=== PATIENT | female | born 1945 | race Caucasian/White ===

== ENCOUNTER 2016-10-13 14:54 | Inpatient (IN) | payer OTHER ==
[~2016-10-13] VITALS: Ht 154.9 cm; Wt 104.3 kg
[~2016-10-13 14:54] MED LIST: ALEVE220 M1 PO; ASPIRIN EC81 M1 PO; ATIVAN0.5 M1 PO; AUGMENTIN 875 M1 TAB PO; BREO ELLIPTA 11 EACH INH; CLONIDINE1 EAC1 TOP; DILTIAZEM 24HR360 MG PO; FUROSEMIDE40 M1 PO; GABAPENTIN800 MG PO; LOSARTAN POTASS50 MG PO; PERCOCET 325 MG1 TA2 PO; PREDNISONE10 MG PO; SERTRALINE HCL50 MG PO; SIMVASTATIN10 MG PO; SPIRIVA18 MCG INH; VENTOLIN H0.09 MG/Ac PO; ZOFRAN ODT4 MG PO
--- NOTE | 2016-10-13 15:19 | NUR ---
70 YO FEMALE TO ER C/O SOB WITH PRODUCTIVE COUGH. PT STATES SHE HAS BEEN ON PREDNISONE BUT HER COUGH AND WHEEZING NOTED TO BE GETTING WORSE. STATE SHE HAS TO SLEEP ON MULTIPLE PILLOWS AT NIGHTTIME. RA SATS 94% AT THIS TIME.
--- NOTE | 2016-10-13 15:19 | NUR ---
MED STUDENT AT BEDSIDE FOR EVAL
--- NOTE | 2016-10-13 15:20 | ED DYSPNEA/ASTHMA COMPLAINT ---
History of Present Illness General Chief Complaint: General Adult Stated Complaint: SENT IN PCP FOR SOB AND ABNORMAL EKG Source: patient Exam Limitations: no limitations Vital Signs & Intake/Output Vital Signs & Intake/Output Vital Signs Date Time Temp Pulse Resp B/P Pulse O2 O2 Flow FiO2 Ox Delivery Rate 10/18 0844 98.2 67 18 13/96 97 Room Air 10/18 0820 93 Room Air Room Air 10/18 0006 98.0 77 18 112/76 93 Room Air 10/18 0000 93 CPAP 10/17 2137 77 110/76 10/17 2110 94 Room Air 10/17 1628 98.8 71 20 137/71 93 Room Air ED Intake and Output 10/18 0000 10/17 1200 Intake Total 480 120 Output Total Balance 480 120 Intake, Oral 480 120 Allergies Coded Allergies: adhesive (IRRITATING TO SKIN 10/13/16) cephalexin (ITCHY 10/13/16) clarithromycin (From BIAXIN) (SEVERE GI UPSET, DIARRHEA 10/13/16) hydrochlorothiazide (ITCHY 10/13/16) metronidazole (HIVES AND SEVERE ITCHING 10/13/16) nitrofurantoin (HIVES 10/13/16) sulfamethoxazole (From BACTRIM) (HIVES 10/13/16) trimethoprim (From BACTRIM) (HIVES 10/13/16) Reconcile Medications Albuterol Sulfate (Ventolin Hfa) 90 MCG HFA.AER.AD 2 PUF INH Q6H PRN RESPIRATORY (Reported) Aspirin (Aspirin EC) 81 MG TABLET.DR 1 TAB PO DAILY HEART HEALTH (Reported) Clonidine 0.2 MG/24 HOUR PATCH.TDWK 1 PATCH TOP QW HEART (Reported) Diltiazem HCl (Diltiazem 24HR ER) 360 MG CAP.ER.24H 1 CAP PO DAILY atrial fibrilation (Reported) FLUTICASONE/VILANTEROL (Breo Ellipta 100-25 Mcg INH) 100 MCG-25 MCG/DOSE BLST.W.DEV 1 PUFF INH DAILY BRTH (Reported) Furosemide 40 MG TABLET 1 TAB PO DAILY WATER PILL (Reported) Gabapentin (Neurontin) 400 MG CAPSULE 2 CAP PO BID NEUROPATHY (Reported) Lorazepam (Ativan) 0.5 MG TABLET 1 TAB PO AT BED TIME PRN ANXIETY (Reported) Losartan Potassium (Cozaar) 50 MG TABLET 1 TAB PO DAILY HEART/BP (Reported) Lotrisone (Lotrisone Cream) 1 %-0.05 % CREAM..G. 1 CORNELL TOP BID AFFECTED AREA(S ) ON SKIN (Reported) apply to affected area(s) Montelukast Sodium (Singulair) 10 MG TABLET 1 TAB PO DAILY COPD (Reported) Naproxen Sodium (Aleve) 220 MG CAPSULE 1 CAP PO BID PAIN (Reported) SERTRALINE HCL (Sertraline Hydrochloride) 50 MG TABLET 1 TAB PO DAILY MENTAL HEALTH (Reported) Simvastatin (Zocor) 10 MG TABLET 1 TAB PO QPM CHOLESTEROL (Reported) Tiotropium [place] (Spiriva) 18 MCG CAP.W.DEV 1 CAP INH DAILY BREATHING PROBLEMS (Reported) Triage Nurses Notes Reviewed? yes Onset: Gradual Duration: day(s): (3) Timing: recent history Severity: mild Activities at Onset: none Associated Symptoms: cough, shortness of breath HPI: 70 year old female who presents from PCP's office and sent here for abnormal EKG. Patient was in Afib in the office. One episode previously in 2009. Patient denies any episodes since then, states that when she goes for her regular checkups that her EKG is normal. Denies any chest pain, palpiatations or irregular beat. She does complain of cough, clear phlegm and shortenss of breath. She has used more pillows at night for the past few days. Past History Travel History Traveled to [place] past 21 day No Medical History Any Pertinent Medical History? see below for history Neurological: NONE EENT: allergies, cataracts, hearing loss Cardiovascular: AFIB, hypertension, hyperlipidemia Respiratory: COPD, obstructive sleep apnea Gastrointestinal: hiatal hernia, SBO Hepatic: NONE Renal: KIDNEY STONES Musculoskeletal: sciatica, LEFT KNEE SCRAPING LAMINECTOMY Psychiatric: depression Endocrine: obesity Blood Disorders: NONE Cancer(s): NONE MANAGER BAKERY/Reproductive: NONE History of MRSA: No History of VRE: No History of CDIFF: Yes Tetanus Vaccine: 06/25/14 Surgical History Surgical History: non-contributory Psychosocial History Who do you live with Patient/Self Services at Home None What is your primary language Thai Tobacco Use: Quit >30 days ago Family History Family History, If Any: Relation not specified for: *No pertinent family history Hx Contributory? No Review of Systems Review of Systems Constitutional: Reports: no symptoms. EENTM: Reports: no symptoms. Respiratory: Reports: cough, short of breath, sputum production (yellow). Cardiovascular: Denies: chest pain, palpitations. GI: Reports: no symptoms. Genitourinary: Reports: no symptoms. Musculoskeletal: Reports: no symptoms. Skin: Reports: no symptoms. Neurological/Psychological: Denies: anxiety, ataxia, headache. Hematologic/Endocrine: Denies: bruising, bleeding, polyuria, polydipsia. Immunologic/Allergic: Denies: splenectomy. All Other Systems: Reviewed and Negative Physical Exam Physical Exam General Appearance: well developed/nourished, alert, awake, mild distress, obese Head: atraumatic, normal appearance Eyes: Bilateral: normal appearance, PERRL, EOMI. Ears, Nose, Throat: normal pharynx, normal ENT inspection, hearing grossly normal Neck: normal inspection, supple, full range of motion Respiratory: accessory muscle use, wheezing, respiratory distress Cardiovascular: tachycardia, irregularly irregular Peripheral Pulses: 2+ radial (R), 2+ radial (L) Gastrointestinal: soft, non-tender Neurologic/Psych: no motor/sensory deficits, awake, alert, oriented x 3, normal gait, normal mood/affect Skin: intact, normal color, warm/dry Core Measures ACS in differential dx? No Severe Sepsis Present: No Septic Shock Present: No Progress Differential Diagnosis: asthma, CHF, COPD, pulmonary embolism, pneumonia, PAF Plan of Care: Orders Procedure Date/time Status CBC WITHOUT DIFFERENTIAL 10/18 06 Complete BASIC ELECTROLYTES PLUS BUN&CR 10/18 06 Complete AEROSOL CHG 10/17 UNK Complete Current Medications Sig/Jerel Start time Last Medication Dose Stop Time Status Admin Clonidine 2 PAT Q168 10/19 1000 AC (Catapres) Digoxin 0.25 MG 1700 10/18 1700 CAN (Lanoxin) Acetaminophen 650 MG Q6P PRN 10/13 1929 AC (Tylenol) Albuterol Sulfate 2 PUF Q6H PRN 10/13 1929 AC (Ventolin) Oxycodone HCl 10 MG Q6P PRN 10/13 1929 AC (Roxicodone) Laboratory Tests 10/18/16 0610: Anion Gap 10, Estimated GFR > 60, BUN/Creatinine Ratio 25.6 H, CBC w Diff NO MAN DIFF REQ, RBC 4.43, MCV 82.8, MCH 27.1, RDW 16.4 H, MPV 8.1, Gran % 78.3 H , Lymphocytes % 16.0 L, Monocytes % 5.2, Eosinophils % 0.2, Basophils % 0.3, Absolute Granulocytes 6.9 H, Absolute Lymphocytes 1.4, Absolute Monocytes 0.5, Absolute Eosinophils 0, Absolute Basophils 0, PUBS MCHC 32.8 L ekg, tele monitor, cxr. duoneb, iv solumedrol ordered. heparin/cardizem drip ordered. d/w dr box who will admit patient to telemetry. (ADILSON SAINZ,DEVIKA) Diagnostic Imaging: Viewed by Me: Radiology Read. Discussed w/RAD: Radiology Read. Initial ED EKG: AFIB, PVC Prior EKG: unchanged Rhythm Strip: atrial flutter Comments: PATIENT: SHAR BELLO PRESENT AGE: 70 PATIENT ACCOUNT NO: [id number] : 46 LOCATION: [facility] ORDERING PHYSICIAN: DEVIKA DE ANDA MD SERVICE DATE: 10/13/16 EXAM TYPE: RAD - XRY-PORTABLE CHEST XRAY EXAMINATION: XR PORTABLE CHEST CLINICAL INFORMATION: Dyspnea evaluate for congestive heart failure. Rapid A. fib. COMPARISON: None. TECHNIQUE: Chest CT February 2016. Chest x-ray September 2015. FINDINGS: Mild calcification of the dorsal aorta unchanged. The cardiac silhouette mediastinum and pulmonary vascularity are otherwise normal. Lungs clear. IMPRESSION: No acute disease No radiographic signs for CHF DICTATED BY: EDWIN THORNTON MD DATE/TIME DICTATED:10/13/161543 [employer] HAND:ORALIA DATE/TIME TRANSCRIBED:10/13/161543 CONFIDENTIAL, DO NOT COPY WITHOUT APPROPRIATE AUTHORIZATION. <Electronically signed in Other Vendor System> SIGNED BY: EDWIN THORNTON MD 10/13 1551 Departure Departure Time of Disposition: 1702 Disposition: STILL A PATIENT Condition: Stable Clinical Impression Primary Impression: Rapid atrial fibrillation Referrals: NELL DSOUZA MD (PCP/Family) Departure Forms: Customer Survey General Discharge Information Admission Note Spoke With: LINA SAINZ PhD,BRIAN Hernández Documentation of Exam: Documentation of any treatments & extenuating circumstances including Concerns Regarding Discharge (functional status, medication knowledge or non-compliance, living conditions, etc.) that warrant an admission rather than observation: [ TELE MONITOR, CARDIZEM DRIP, HEPARIN DRIP, SERIAL EKG/TROPONIN, TRC/NEBS, IV SOLUMEDROL, ECHOCARDIOGRAM] Critical Care Note Critical Care Note Critical Care Time: 30-74 min ED Attending Observation Initial Observation Note: I have seen and personally examined ACEJENILinda Mckeon on 10/18/16 at 1358. I agree with the current emergency department documentation. The disposition (admission or discharge) is uncertain at this time, she needs a period of observation for the following reason(s): The ED Nurse caring for this patient has been personally informed as to what the patient is being observed for.
--- NOTE | 2016-10-13 15:41 | NUR ---
LABS DRAWN AND SENT BLUE SST AYON
--- NOTE | 2016-10-13 15:51 | RADIOLOGY REPORT ---
EXAMINATION: XR PORTABLE CHEST CLINICAL INFORMATION: Dyspnea evaluate for congestive heart failure. Rapid A. fib. COMPARISON: None. TECHNIQUE: Chest CT February 2016. Chest x-ray September 2015. FINDINGS: Mild calcification of the dorsal aorta unchanged. The cardiac silhouette mediastinum and pulmonary vascularity are otherwise normal. Lungs clear. IMPRESSION: No acute disease No radiographic signs for CHF
[2016-10-13 15:56] LABS: PT 12.4 SEC (9.4-12.5); PTT 29 SEC (25-37)
--- NOTE | 2016-10-13 16:05 | NUR ---
RESP PAGED FOR JULIÁN
--- NOTE | 2016-10-13 16:13 | NUR ---
RESP AT BEDSIDE FOR TREATMENT
[2016-10-13 16:28] LABS: ABSOLUTE BASOPHIL COUNT 0.1 /CUMM (0.0-0.2); ABSOLUTE EOSINOPHIL COUNT 0 /CUMM (0.0-0.7); ABSOLUTE GRANULOCYTE CT 8.8 /CUMM (1.4-6.5); ABSOLUTE LYMPH COUNT 0.9 /CUMM (1.2-3.4); ABSOLUTE MONOCYTE COUNT 0.4 /CUMM (0.10-0.60); BASOPHIL % 0.6 % (0.0-2.0); EOSINOPHIL % 0.1 % (0-5); GRANULOCYTE % 85.8 % (42.2-75.2); HEMATOCRIT 38.2 % (37-47); MEAN CORPUSCULAR HGB 26.5 PG (27.0-31.0); MEAN CORPUSCULAR HGB CONC 32.2 G/DL (33.0-37.0); MEAN CORPUSCULAR VOLUME 82.3 FL (81.0-99.0); MEAN PLATELET VOLUME 7.7 FL (7.4-10.4); PLATELET COUNT 320 /CUMM (130-400); RBC DISTRIBUTION WIDTH 15.8 % (11.5-14.5); RED BLOOD CELL CT 4.64 /CUMM (4.20-5.40); WHITE BLOOD CELL COUNT 10.2 /CUMM (4.8-10.8)
--- NOTE | 2016-10-13 16:59 | NUR ---
CARDIZEM INFUSING PER ORDER AT THIS TIME AT 10ML/HR AFTER VERIFICATION WITH LUCIANO RODRIGUEZ.
[2016-10-13] MEDS ORDERED: VENTOLIN HFA18 GM INH (17:15)
[2016-10-13] MEDS ORDERED: NEURONTIN400 M1 PO (17:17)
[2016-10-13] MEDS ORDERED: COZAAR50 M1 PO (17:19)
[2016-10-13] MEDS ORDERED: LOTRISONE CREAM15 G1 TOP (17:21)
--- NOTE | 2016-10-13 17:22 | NUR ---
HEPARIN INFUSING PER ORDER AT 26ML/HR AT THIS TIME. DR MILLS AT BEDSIDE. 500CC BOLUS INFUSING PER ORDER, CARDIZEM CONTINUES TO INFUSE.
--- NOTE | 2016-10-13 17:31 | History & Physical ---
DARIEN SAINZ,[facility] 10/13/16 1731: General Information and HPI MD Statement: I have seen and personally examined JESENIA BELLO and documented this H&P. The patient is a 70 year old F who presented with a patient stated chief complaint of [EKG with atrial fibrillation with rapid ventricular response]. 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 patient presented from PCP office after an EKG that showed atrial fibrillation with rapid ventricular response. Patient denied any chest pain, palpitation, dizziness, lightheadedness, numbness, diaphoresis. She reported that 2 weeks ago she started to have COPD exacerbation for which was started on prednisone 40 mg daily and now tapered down to 10 mg daily ( patient is following with Dr. Harris), history of productive cough of yellow sputum, nasal congestion, denied fever, chills. The patient received the flu vaccine this season and the pneumonia vaccine as well. The patient is a former smoker quit 10 years ago. No history of alcohol consumption. Allergies/Medications Allergies: Coded Allergies: adhesive (IRRITATING TO SKIN 10/13/16) cephalexin (ITCHY 10/13/16) clarithromycin (From BIAXIN) (SEVERE GI UPSET, DIARRHEA 10/13/16) hydrochlorothiazide (ITCHY 10/13/16) metronidazole (HIVES AND SEVERE ITCHING 10/13/16) nitrofurantoin (HIVES 10/13/16) sulfamethoxazole (From BACTRIM) (HIVES 10/13/16) trimethoprim (From BACTRIM) (HIVES 10/13/16) Home Med list Albuterol Sulfate (Ventolin Hfa) 90 MCG HFA.AER.AD 2 PUF INH Q6H PRN RESPIRATORY (Reported) Aspirin (Aspirin EC) 81 MG TABLET.DR 1 TAB PO DAILY HEART HEALTH (Reported) Clonidine 0.2 MG/24 HOUR PATCH.TDWK 1 PATCH TOP QW HEART (Reported) DILTIAZEM HCL (Diltiazem 24HR ER) 240 MG CAP.ER.24H 1 TAB PO DAILY HEART ( Reported) FLUTICASONE/VILANTEROL (Breo Ellipta 100-25 Mcg INH) 100 MCG-25 MCG/DOSE BLST.W.DEV 1 PUFF INH DAILY BRTH (Reported) Furosemide 40 MG TABLET 1 TAB PO DAILY WATER PILL (Reported) Gabapentin (Neurontin) 400 MG CAPSULE 2 CAP PO BID NEUROPATHY (Reported) Lorazepam (Ativan) 0.5 MG TABLET 1 TAB PO AT BED TIME PRN ANXIETY (Reported) Losartan Potassium (Cozaar) 50 MG TABLET 1 TAB PO DAILY HEART/BP (Reported) Lotrisone (Lotrisone Cream) 1 %-0.05 % CREAM..G. 1 CORNELL TOP BID AFFECTED AREA(S ) ON SKIN (Reported) apply to affected area(s) Montelukast Sodium (Singulair) 10 MG TABLET 1 TAB PO DAILY COPD (Reported) Naproxen Sodium (Aleve) 220 MG CAPSULE 1 CAP PO BID PAIN (Reported) SERTRALINE HCL (Sertraline Hydrochloride) 50 MG TABLET 1 TAB PO DAILY MENTAL HEALTH (Reported) Simvastatin (Zocor) 10 MG TABLET 1 TAB PO QPM CHOLESTEROL (Reported) Tiotropium [place] (Spiriva) 18 MCG CAP.W.DEV 1 CAP INH DAILY BREATHING PROBLEMS (Reported) Past History Travel History Traveled to [place] past 21 day No Medical History Neurological: NONE EENT: allergies, cataracts, hearing loss Cardiovascular: AFIB, hypertension, hyperlipidemia Respiratory: COPD, obstructive sleep apnea Gastrointestinal: hiatal hernia, SBO Hepatic: NONE Renal: KIDNEY STONES Musculoskeletal: sciatica, LEFT KNEE SCRAPING LAMINECTOMY Psychiatric: depression Endocrine: obesity Blood Disorders: NONE Cancer(s): NONE 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 Exam & Diagnostic Data Last 24 Hrs of Vital Signs/I&O Vital Signs Date Time Temp Pulse Resp B/P Pulse O2 O2 Flow FiO2 Ox Delivery Rate 10/14 0158 97.7 63 96/56 10/14 0043 58 88/56 10/14 0000 CPAP 10/13 2322 98.1 70 18 94/60 95 Room Air 10/13 2242 76 94/60 10/13 2205 Room Air 10/13 1999 Room Air 10/13 1947 98.4 88 20 134/80 94 Room Air 10/13 1744 86 18 146/77 95 Room Air 10/13 1642 104 112/65 10/13 1617 94 10/13 1518 96.2 113 20 121/90 94 Room Air Intake & Output 10/14 0800 10/14 0000 10/13 1600 Intake Total 737 350 Output Total 300 Balance 437 350 Intake, IV 637 150 Intake, Oral 100 200 Number 0 Bowel Movements Output, Urine 300 Patient 104.326 kg Weight Physical Exam General Appearance Alert, Oriented X3, Cooperative, No Acute Distress Skin No Rashes, No Breakdown, No Significant Lesion HEENT Atraumatic, PERRLA, EOMI, Mucous Membr. moist/pink Neck Supple, No JVD Cardiovascular Regular Rate, Normal S1, Normal S2, No Murmurs Lungs bilateral diffuse expiratory wheeze Abdomen Normal Bowel Sounds, Soft, No Tenderness Neurological Normal Speech, Strength at 5/5 X4 Ext, Normal Tone, Sensation Intact, Cranial Nerves 3-12 NL, Reflexes 2+ Extremities No Clubbing, No Cyanosis, No Edema, Normal Pulses Vascular Normal Pulses, Pulses Symmetrical Assessment/Plan Assessment: Jesenia is a 70 year old lady with past medical history of COPD not on home oxygen , obstructive sleep apnea on CPAP, hypertension, hyperlipidemia, supraventricular tachycardia (?paroxysmal atrial fibrillation not on anticoagulation), 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 patient presented from PCP office after an EKG that showed atrial fibrillation with rapid ventricular response. On admission Vital signs 96.2, pulse 113 irregular rhythm, respiratory rate 20 on room air saturation 94%, blood pressure 121/90 Labs WBC 10.2, platelet 320, H&H 12.3/38.2, sodium 138, potassium 4.3, chloride 103, bicarbonate 24, BUN 24, creatinine 0.8 Chest x-ray showed no acute distress and no radiographic signs of CHF Problem list #Atrial fibrillation with rapid ventricular response #COPD exacerbation #Hypertension and hyperlipidemia #Atrial fibrillation with rapid ventricular response -Patient has past medical history of supraventricular tachycardia was on Cardizem -Patient has recent history of flulike illness that could predispose for atrial fibrillation -Start heparin drip for anticoagulation -Start Cardizem drip for rate control -Initial troponin is less than 0.01, check troponin after 6 hour -EKG after 6 hour -Consider echo #COPD exacerbation -Consider Soul Medrol 40 mg twice a day -Zithromax for 5 days -TRC and nebulizer 3 times a day and as needed -Consider flu rapid test -Continue montelukast 10 mg daily -P BNP of 1490 could be of cardiac or infection source -Please place a pulm consult in the morning Dr. Harris #Hypertension and hyperlipidemia -Continue atorvastatin 10 mg daily -Continue losartan 50 mg daily -Aspirin 80 mg daily -Continue furosemide 40 mg daily Diet heart healthy diet DVT prophylaxis heparin drip Code full Consultation cardiology and pulmonology As Ranked By This Provider Problem List: 1. Rapid atrial fibrillation 2. COPD exacerbation Core Measures/Miscellaneous Acute Coronary Syndrome ACS Diagnosis: No Cerebrovascular Accident CVA/TIA Diagnosis: No Congestive Heart Failure CHF Diagnosis: No Venous Thromboembolism VTE Risk Factors: Age > 40 VTE Prophylaxis Ordered Inpt: Pharm- Heparin No [facility] VTE prophylaxis d/t: No contraindications No VTE Pharm Prophylaxis d/t: No contraindications VTE Diagnosis: No VTE Type: NONE VTE Confirmed by (Test): NONE Severe Sepsis Severe Sepsis Present: No Septic Shock Septic Shock Present: No Miscellaneous Documentation Attending Case Discussed With: LINA SAINZ PhD,BRIAN Hernández Primary Care Physician: NELL DSOUZA MD Patient sees these Specialists pulmomology and cardiology Level of Patient Care: Telemetry EDUARDO CALVIN 10/13/161926: Resident Review Statement Resident Statement: examined this patient, discussed with international nurse, agreed with international nurse Other Findings: Patient is 70 years old woman with past medical history significant for obstructive sleep apnea on CPAP at home, non-oxygen dependent COPD and resistant hypertension on multiple antihypertensives, history of abdominal aortic aneurysm repair and noted a large penetrating ulcer which is stable and history of paroxysmal atrial fibrillation not on any anticoagulation came to emergency room and found to have atrial fibrillation with rapid response at her PCP's office. Patient admits that she was having upper respiratory symptoms and COPD exacerbation in past few days for which she was on tapering course of prednisone and also had cough which is productive of yellowish phlegm and she was wheezing a lot. She denied any chest pain or palpitations. She denied any dizziness, nausea, vomiting, any urinary or bowel complaints. Her vital signs at admission were temperature 96.2, pulse 113, respiratory rate 20, blood pressure 121/90 and she was saturating 94% on room air. Labs showed WBC count 10.2, hemoglobin 12.3, hematocrit 38.2, platelet count 320 , sodium 138, potassium 4.3, BUN 24 and creatinine 0.8, initial lactic acid was high to 2.3 and we will follow-up. We'll set of troponin was negative and her proBNP is 1490. X-ray was negative for any acute pathology EKG was significant for atrial fibrillation with no significant ST wave changes On physical examination Patient is alert and oriented 3 Head atraumatic Neck supple Chest loud wheezes throughout respiratory ramírez bilaterally Abdomen soft and protuberant with normal bowel sounds Extremities no edema or cyanosis Assessment and plan Patient is 70 year old female with multiple comorbidities including hypertension , as COPD, aortic aneurysm, aortic arch penetrating stable ulcer, multiple surgeries in the past had history of recent upper respiratory tract infection/ bronchitis with COPD exacerbation almost completed tapering course of oral prednisone and found to have atrial fibrillation which is most likely paroxysmal atrial fibrillation but she was never been on anticoagulation as her rate was controlleD but 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 We will admit patient on telemetry floor Patient is already seen by Dr. Ha in ER. Patient was started on heparin drip and Cardizem drip in ER and we will continue Cardizem drip along with oral Cardizem her home dose and will start patient on oral ELIQUIS 5 mg twice a day and we will stop heparin drip after getting first dose. Will obtain echocardiogram Her first set of troponin which is negative we will do another set of is negative we will not trended but if it's elevated we will send it. For her COPD exacerbation/bronchitis we will start patient on azithromycin, IV Solu-Medrol, TRC and nebulization and we will request a pulmonology evaluation in a.m.
--- NOTE | 2016-10-13 17:53 | NUR ---
PT HAS BED ASSIGNMENT 181
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
--- NOTE | 2016-10-13 18:34 | NUR ---
REPORT GIVEN TO [employer] M[employer]ER OPERATOR. [employer] CALLED FOR TRANSPORT.
[2016-10-13] MEDS ORDERED: SINGULAIR10 M1 PO (19:41)
[2016-10-13 19:47] VITALS: BP 134/80
[2016-10-13 23:22] VITALS: BP 152/70; BP 94/60
[2016-10-14 00:43] VITALS: BP 88/56
[2016-10-14 01:58] VITALS: BP 96/56
[2016-10-14 02:25] LABS: ABSOLUTE BASOPHIL COUNT 0 /CUMM (0.0-0.2); ABSOLUTE EOSINOPHIL COUNT 0 /CUMM (0.0-0.7); ABSOLUTE GRANULOCYTE CT 6.1 /CUMM (1.4-6.5); ABSOLUTE LYMPH COUNT 0.5 /CUMM (1.2-3.4); ABSOLUTE MONOCYTE COUNT 0 /CUMM (0.10-0.60); BASOPHIL % 0 % (0.0-2.0); EOSINOPHIL % 0 % (0-5); HEMATOCRIT 35.5 % (37-47); MEAN CORPUSCULAR HGB 26.8 PG (27.0-31.0); MEAN CORPUSCULAR HGB CONC 32.9 G/DL (33.0-37.0); MEAN CORPUSCULAR VOLUME 81.7 FL (81.0-99.0); MEAN PLATELET VOLUME 7.9 FL (7.4-10.4); PLATELET COUNT 271 /CUMM (130-400); RBC DISTRIBUTION WIDTH 15.4 % (11.5-14.5); RED BLOOD CELL CT 4.34 /CUMM (4.20-5.40); WHITE BLOOD CELL COUNT 6.6 /CUMM (4.8-10.8)
[2016-10-14 02:39] LABS: GRANULOCYTE % 91.6 % (42.2-75.2)
--- NOTE | 2016-10-14 08:02 | PN- Housestaff ---
Subjective Follow-up For: atrial fibrillation with rapid ventricular response COPD exacerbation Tele-Events Since Last Visit: Afib, 61-110, no overnight events Subjective: I saw and examined the patient this AM, alert and oriented, denied chest pain, palpitation, SOB, cough, fever. had BM yesterday, no pain in abdomen and reported no swelling in the legs. Review of Systems Constitutional: Reports: no symptoms. EENTM: Denies: hearing changes (uses hearing aid). Cardiovascular: Reports: no symptoms. Respiratory: Denies: cough, short of breath, sputum production, wheezing. Gastrointestinal: Reports: no symptoms. Genitourinary: Reports: no symptoms. Musculoskeletal: Reports: no symptoms. Skin: Reports: no symptoms. Objective Last 24 Hrs of Vital Signs/I&O Vital Signs Date Time Temp Pulse Resp B/P Pulse O2 O2 Flow FiO2 Ox Delivery Rate 10/14 1602 97.8 86 18 116/68 93 Room Air 10/14 0833 91 Room Air 10/14 0815 97.5 61 18 110/66 94 CPAP 10/14 0158 97.7 63 96/56 10/14 0043 58 88/56 10/14 0000 CPAP 10/13 2322 98.1 70 18 94/60 95 Room Air 10/13 2242 76 94/60 10/13 2205 Room Air Intake & Output 10/14 1600 10/14 0800 10/14 0000 Intake Total 240 737 350 Output Total 600 300 Balance -360 437 350 Intake, IV 637 150 Intake, Oral 240 100 200 Number 0 Bowel Movements Output, Urine 600 300 Patient 104.326 kg Weight Physical Exam General Appearance: Alert, Oriented X3, Cooperative, No Acute Distress Skin: No Rashes, No Breakdown, No Significant Lesion HEENT: Atraumatic, PERRLA, EOMI, Mucous Membr. moist/pink Neck: Supple, No JVD Cardiovascular: Regular Rate, Normal S1, Normal S2, No Murmurs Lungs: wheezing bilaterally Abdomen: Normal Bowel Sounds, Soft, No Tenderness, No Hepatospenomegaly Neurological: Normal Speech, Strength at 5/5 X4 Ext, Normal Tone, Cranial Nerves 3-12 NL Extremities: No Clubbing, No Cyanosis, No Edema, Normal Pulses, No Tenderness/ Swelling Vascular: Normal Pulses, Pulses Symmetrical Current Medications: Current Medications Sig/Jerel Start time Last Medication Dose Route Stop Time Status Admin Acetaminophen 650 MG Q6P PRN 01/19 1930 AC PO Acetaminophen/ 1 TAB Q6P PRN 10/13 193 AC Hydrocodone Bitart PO Albuterol Sulfate 3 ML TID 10/14 1000 AC 10/14 INH 1349 Albuterol Sulfate 2 PUF Q6H PRN 10/13 1930 AC INH Apixaban 5 MG BID 10/13 191 AC 10/14 PO 1029 Aspirin 81 MG DAILY 10/14 1000 AC 10/14 PO 1029 Atorvastatin Calcium 10 MG 1700 10/14 1700 AC PO Azithromycin 500 MG DAILY 10/13 1921 AC 10/14 Dextrose/Water 250 ML IV 1031 Budesonide/ 2 PUF BID 10/13 220 AC Formoterol Fumarate INH Diltiazem HCl 360 MG DAILY 10/15 1000 AC PO Diltiazem HCl 240 MG DAILY 10/14 1000 DC 10/14 PO 1031 Diltiazem HCl 125 MG Q12H 10/13 1615 AC 10/14 Sodium Chloride 100 ML IV 0628 Furosemide 40 MG DAILY 10/13 192 AC 10/14 PO 1029 Gabapentin 800 MG BID 10/13 220 AC 10/14 PO 1029 Heparin Sodium 25,000 UNIT Q24H 10/13 1700 DC 10/13 (Porcine) IV 1719 Sodium Chloride 500 ML Lorazepam 0.5 MG AT BEDTIME 10/13 2199 AC 10/13 PO 10/20 2159 2239 Losartan Potassium 50 MG DAILY 10/14 1000 DC PO Losartan Potassium 50 MG AT BEDTIME 10/13 2245 AC PO Methylprednisolone 40 MG Q12 10/14 2200 AC IV Methylprednisolone 40 MG Q8 10/13 2200 DC 10/14 IV 0629 Montelukast Sodium 10 MG DAILY 10/14 1000 DC PO Montelukast Sodium 10 MG AT BEDTIME 10/13 2245 AC 10/13 PO 2239 Oxycodone HCl 10 MG Q6P PRN 10/13 193 AC PO Sertraline HCl 50 MG DAILY 10/14 1000 AC 10/14 PO 1029 Sodium Chloride 500 ML BOLUS ONE 10/13 2345 DC 10/14 IV 10/14 0044 0042 Tiotropium [place] 1 PUF DAILY 10/13 192 AC 10/14 INH 1030 Last 24 Hrs of Lab/Kevin Results Last 24 Hrs of Labs/Mics: Laboratory Tests 10/14/16 0600: Lactic Acid Cancelled, CBC w Diff Cancelled, WBC Cancelled, RBC Cancelled, Hgb Cancelled, Hct Cancelled, MCV Cancelled, MCH Cancelled, RDW Cancelled, Plt Count Cancelled, MPV Cancelled, PUBS MCHC Cancelled 10/14/16 0200: Anion Gap 9, Estimated GFR > 60, BUN/Creatinine Ratio 27.5 H, Lactic Acid 1.9, CBC w Diff NO MAN DIFF REQ, RBC 4.34, MCV 81.7, MCH 26.8 L, RDW 15.4 H, MPV 7.9, Gran % 91.6 H, Lymphocytes % 7.7 L, Monocytes % 0.7 L, Eosinophils % 0, Basophils % 0 L, Absolute Granulocytes 6.1, Absolute Lymphocytes 0.5 L, Absolute Monocytes 0 L, Absolute Eosinophils 0, Absolute Basophils 0, PUBS MCHC 32.9 L 10/13/16 2220: Troponin I < 0.01 10/13/16 2220: Lactic Acid 3.9 H Assessment/Plan Assessment: Jesenia is a 70 year old lady with past medical history of COPD not on home oxygen , obstructive sleep apnea on CPAP, hypertension, hyperlipidemia, supraventricular tachycardia (?paroxysmal atrial fibrillation not on anticoagulation), stable penetrating ulcer along the lateral margin of the aortic arc, abdominal aortic aneurysm status post [id number], chronic back pain status post laminectomy 2009, history of hernia repair with small bowel resection because of incarceration, history of mesothelioma. patient presented from PCP office after an EKG that showed atrial fibrillation with rapid ventricular response. On admission Vital signs 96.2, pulse 113 irregular rhythm, respiratory rate 20 on room air saturation 94%, blood pressure 121/90 Labs WBC 10.2, platelet 320, H&H 12.3/38.2, sodium 138, potassium 4.3, chloride 103, bicarbonate 24, BUN 24, creatinine 0.8 Chest x-ray showed no acute distress and no radiographic signs of CHF Problem list #Atrial fibrillation with rapid ventricular response #COPD exacerbation #Hypertension and hyperlipidemia #Atrial fibrillation with rapid ventricular response -Patient has past medical history of supraventricular tachycardia was on Cardizem -Patient has recent history of flue like illness that could predispose for atrial fibrillation -Started heparin drip for anticoagulation -Started Cardizem drip for rate control -Serial troponins less than 0.01 with no EKG changes -Ordered Echo -PO cardizem increased to 360 mg daily per cardiology #SOB, likely due to COPD exacerbation -Decreased IV Soul Medrol 40 mg to twice a day -Zithromax for 5 days -TRC and nebulizer 3 times a day and as needed -Consider flu rapid test -Continue montelukast 10 mg daily -P BNP of 1490 could be of cardiac or infection source -Place pulm consult and followed recs -Doppler US of LE to RO DVT #Hypertension and hyperlipidemia -Continue atorvastatin 10 mg daily -Continue losartan 50 mg daily -Aspirin 80 mg daily -Continue furosemide 40 mg daily -per cardiology if BP <100mmHg systolic decrease clonidine patch to 0.1mg/hr or hold entirely Diet heart healthy diet DVT prophylaxis heparin drip Code full Consultation cardiology and pulmonology Problem List: 1. Rapid atrial fibrillation 2. COPD exacerbation Pain Ratin Pain Location: no pain Pain Goal: Pain 4 or less Pain Plan: tylenol for mild pain Tomorrow's Labs & Rationales: CBC and BEP
[2016-10-14 08:15] VITALS: BP 110/66
--- NOTE | 2016-10-14 10:13 | PN- Cardiology ---
Subjective Subjective: * Wheezing and shortness of breath have lessened. No chest discomfort or palpitations. * atrial fibrillation with controlled heart rate on IV cardizem Objective Vital Signs and I&Os Vital Signs Date Time Temp Pulse Resp B/P Pulse O2 O2 Flow FiO2 Ox Delivery Rate 10/14 0833 91 Room Air 10/14 0815 97.5 61 18 110/66 94 CPAP 10/14 0158 97.7 63 96/56 10/14 0043 58 88/56 10/14 0000 CPAP 10/13 2322 98.1 70 18 94/60 95 Room Air 10/13 2242 76 94/60 10/13 2205 Room Air 10/13 2000 Room Air 10/13 1947 98.4 88 20 134/80 94 Room Air 10/13 1744 86 18 146/77 95 Room Air 10/13 1642 104 112/65 10/13 1617 94 10/13 1518 96.2 113 20 121/90 94 Room Air Intake & Output 10/14 1600 10/14 0800 10/14 0000 10/13 1600 10/13 0800 10/13 0000 Intake Total 737 350 Output Total 300 Balance 437 350 Intake, IV 637 150 Intake, Oral 100 200 Number 0 Bowel Movements Output, Urine 300 Patient 230 lb Weight Physical Exam: General: WD/ obese female in NAD; alert and oriented x 3 Heart: irregularly irregular Lungs: diffuse expiratory wheezing Extremities: no edema Assessment/Plan Assessment/Plan * Increase oral cardizem to 360mg daily for better rate control. If her BP drops below 100mmHg systolic then decrease her clonidine patch to 0.1mg/hr or hold entirely as appropriate for her pressure. * Continue Eliquis for stroke prophylaxis. * Continue antibiotic therapy and steroid taper along with Albuteral Nebs. Dr. Harris to consult. * Will review echo. Continue telemetry? Yes
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
[2016-10-14 16:02] VITALS: BP 116/68
--- NOTE | 2016-10-14 19:34 | ULTRASOUND REPORT ---
EXAMINATION: US TRIPLEX LOWER EXTREMITY, BILATERAL CLINICAL INFORMATION: Mild leg edema bilaterally COMPARISON: None. TECHNIQUE: Color-flow triplex imaging with spectral analysis and compression Doppler were performed on the bilateral lower extremities. FINDINGS: Respiratory variation, normal compression and augmented flow are noted throughout the bilateral lower extremities. The visualized common femoral vein, superficial femoral vein, profunda femoral vein, popliteal vein and mid calf peroneal and posterior tibial venous segments show no evidence of deep venous thrombosis. There is no Valles's cyst. IMPRESSION: Normal triplex scan without evidence of deep venous thrombosis involving the bilateral lower extremities.
[2016-10-14 23:48] VITALS: BP 130/60
--- NOTE | 2016-10-15 08:01 | PN- Housestaff ---
Subjective Follow-up For: atrial fibrillation with rapid ventricular response COPD exacerbation Tele-Events Since Last Visit: Rambo christine, rate 76-87, PVCs Subjective: She seen and examined this morning. She was lying comfortably in bed in no acute distress. Denies any chest pain, palpitation, shortness of breath. Remains afebrile, the vitals remained within normal limits Review of Systems Constitutional: Reports: see HPI. Objective Last 24 Hrs of Vital Signs/I&O Vital Signs Date Time Temp Pulse Resp B/P Pulse O2 O2 Flow FiO2 Ox Delivery Rate 10/15 0932 93 Room Air Room Air 10/15 0857 98.4 73 17 153/76 95 Room Air 10/15 0000 96 Room Air 10/14 2348 97.4 95 18 130/60 94 Room Air 10/14 2318 118 130/60 10/14 2145 93 Room Air 10/14 1602 97.8 86 18 116/68 93 Room Air 10/14 1600 95 Room Air Intake & Output 10/15 1600 10/15 0800 10/15 0000 Intake Total 0 450 Output Total 300 1450 Balance -300 -1000 Intake, Oral 0 450 Number 0 Bowel Movements Output, Urine 300 1450 Physical Exam General Appearance: Alert, Oriented X3, Cooperative, No Acute Distress Cardiovascular: Regular Rate, Normal S1, Normal S2, No Murmurs Lungs: mild bilateral wheezing Abdomen: Normal Bowel Sounds, Soft, No Tenderness Extremities: No Clubbing, No Cyanosis, No Edema Current Medications: Current Medications Sig/Jerel Start time Last Medication Dose Route Stop Time Status Admin Acetaminophen 650 MG Q6P PRN 10/13 1929 AC PO Acetaminophen/ 1 TAB Q6P PRN 10/13 1929 AC Hydrocodone Bitart PO Albuterol Sulfate 3 ML TID 10/14 1000 AC 10/15 INH 0931 Albuterol Sulfate 2 PUF Q6H PRN 10/13 193 AC INH Apixaban 5 MG BID 10/13 191 AC 10/15 PO 0948 Aspirin 81 MG DAILY 10/14 1000 AC 10/15 PO 0948 Atorvastatin Calcium 10 MG 1700 10/14 1700 AC 10/14 PO 2314 Azithromycin 500 MG DAILY 10/13 1921 AC 10/15 Dextrose/Water 250 ML IV 0949 Budesonide/ 2 PUF BID 10/13 2199 AC Formoterol Fumarate INH Diltiazem HCl 360 MG DAILY 10/15 1000 AC 10/15 PO 0948 Diltiazem HCl 240 MG DAILY 10/14 1000 DC 10/14 PO 1031 Diltiazem HCl 125 MG Q12H 10/13 1615 DC 10/14 Sodium Chloride 100 ML IV 0628 Furosemide 40 MG DAILY 10/13 1924 AC 10/15 PO 0948 Gabapentin 800 MG BID 10/13 2199 AC 10/15 PO 0948 Lorazepam 0.5 MG AT BEDTIME 10/13 2199 AC 10/14 PO 10/20 215 2318 Losartan Potassium 50 MG AT BEDTIME 10/13 2244 AC 10/14 PO 2318 Methylprednisolone 40 MG Q12 10/14 2199 DC 10/15 IV 0949 Methylprednisolone 40 MG Q8 10/13 2199 DC 10/14 IV 0629 Montelukast Sodium 10 MG AT BEDTIME 10/13 2244 AC 10/14 PO 2314 Oxycodone HCl 10 MG Q6P PRN 10/13 193 AC PO Prednisone 40 MG DAILY 10/16 1000 UNVr PO Sertraline HCl 50 MG DAILY 10/14 1000 AC 10/15 PO 0949 Tiotropium [place] 1 PUF DAILY 10/13 1925 AC 10/15 INH 0947 Last 24 Hrs of Lab/Kevin Results Last 24 Hrs of Labs/Mics: Laboratory Tests 10/15/16 0620: Anion Gap 13, Estimated GFR > 60, BUN/Creatinine Ratio 35.0 H, Magnesium 1.9, CBC w Diff NO MAN DIFF REQ, RBC 4.46, MCV 83.1, MCH 27.0, RDW 15.9 H, MPV 8.2, Gran % 94.0 H, Lymphocytes % 4.6 L, Monocytes % 1.4 L, Eosinophils % 0, Basophils % 0 L, Absolute Granulocytes 13.6 H, Absolute Lymphocytes 0.7 L, Absolute Monocytes 0.2, Absolute Eosinophils 0, Absolute Basophils 0, PUBS MCHC 32.5 L Assessment/Plan Assessment: Jesenia is a 70 year old lady with past medical history of COPD not on home oxygen , obstructive sleep apnea on CPAP, hypertension, hyperlipidemia, supraventricular tachycardia (?paroxysmal atrial fibrillation not on anticoagulation), 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 patient presented from PCP office after an EKG that showed atrial fibrillation with rapid ventricular response. On admission Vital signs 96.2, pulse 113 irregular rhythm, respiratory rate 20 on room air saturation 94%, blood pressure 121/90 Labs WBC 10.2, platelet 320, H&H 12.3/38.2, sodium 138, potassium 4.3, chloride 103, bicarbonate 24, BUN 24, creatinine 0.8 Chest x-ray showed no acute distress and no radiographic signs of CHF Problem list #Atrial fibrillation with rapid ventricular response #COPD exacerbation #Hypertension and hyperlipidemia #Atrial fibrillation with rapid ventricular response -Patient has past medical history of supraventricular tachycardia was on Cardizem -Patient has recent history of flue like illness that could predispose for atrial fibrillation -Started heparin drip for anticoagulation -Started Cardizem drip for rate control -Serial troponins less than 0.01 with no EKG changes -Echo ejection fraction 65-70 %. -PO cardizem increased to 360 mg daily per cardiology, will follow-up for the recommendation. #SOB, likely due to COPD exacerbation -IV Soul Medrol 40 mg to twice a day switch to prednisone 40 mg daily a month follow-up pulmonology recommendation for tapering. -Zithromax for 5 days -TRC and nebulizer 3 times a day and as needed -Consider flu rapid test -Continue montelukast 10 mg daily -P BNP of 1490 could be of cardiac or infection source -Place pulm consult and followed recs -Doppler US of LE to RO DVT #Hypertension and hyperlipidemia -Continue atorvastatin 10 mg daily -Continue losartan 50 mg daily -Aspirin 80 mg daily -Continue furosemide 40 mg daily -per cardiology if BP <100mmHg systolic decrease clonidine patch to 0.1mg/hr or hold entirely Diet heart healthy diet DVT prophylaxis heparin drip Code full Consultation cardiology and pulmonology Problem List: 1. Rapid atrial fibrillation 2. Atrial fibrillation 3. COPD exacerbation Pain Ratin Pain Location: none Pain Goal: Pain 4 or less Pain Plan: Tylenol for mild pain Tomorrow's Labs & Rationales: cBC for WBC monitoring BEP for lites monitoring.
[2016-10-15 08:32] LABS: ABSOLUTE BASOPHIL COUNT 0 /CUMM (0.0-0.2); ABSOLUTE EOSINOPHIL COUNT 0 /CUMM (0.0-0.7); ABSOLUTE GRANULOCYTE CT 13.6 /CUMM (1.4-6.5); ABSOLUTE LYMPH COUNT 0.7 /CUMM (1.2-3.4); ABSOLUTE MONOCYTE COUNT 0.2 /CUMM (0.10-0.60); BASOPHIL % 0 % (0.0-2.0); EOSINOPHIL % 0 % (0-5); HEMATOCRIT 37.1 % (37-47); MEAN CORPUSCULAR HGB CONC 32.5 G/DL (33.0-37.0); MEAN CORPUSCULAR VOLUME 83.1 FL (81.0-99.0); MEAN PLATELET VOLUME 8.2 FL (7.4-10.4); PLATELET COUNT 315 /CUMM (130-400); RBC DISTRIBUTION WIDTH 15.9 % (11.5-14.5); RED BLOOD CELL CT 4.46 /CUMM (4.20-5.40)
[2016-10-15 08:57] VITALS: BP 153/76
--- NOTE | 2016-10-15 09:10 | PN- Pulmonary ---
Subjective HPI/Critical Care Issues: She is comfortable on room air but has mild dyspnea on exertion heart rate remains elevated Objective Current Medications: Current Medications Sig/Jerel Start time Last Medication Dose Route Stop Time Status Admin Acetaminophen 650 MG Q6P PRN 10/13 1929 AC PO Acetaminophen/ 1 TAB Q6P PRN 10/13 1929 AC Hydrocodone Bitart PO Albuterol Sulfate 3 ML TID 10/14 1000 AC 10/14 INH 204 Albuterol Sulfate 2 PUF Q6H PRN 10/13 1929 AC INH Apixaban 5 MG BID 10/13 1914 AC 10/14 PO 2314 Aspirin 81 MG DAILY 10/14 1000 AC 10/14 PO 1029 Atorvastatin Calcium 10 MG 1700 10/14 1700 AC 10/14 PO 2314 Azithromycin 500 MG DAILY 10/13 1921 AC 10/14 Dextrose/Water 250 ML IV 1031 Budesonide/ 2 PUF BID 10/13 2199 AC Formoterol Fumarate INH Diltiazem HCl 360 MG DAILY 10/15 1000 AC PO Diltiazem HCl 240 MG DAILY 10/14 1000 DC 10/14 PO 1031 Diltiazem HCl 125 MG Q12H 10/13 161 AC 10/14 Sodium Chloride 100 ML IV 0628 Furosemide 40 MG DAILY 10/13 1923 AC 10/14 PO 1029 Gabapentin 800 MG BID 10/13 2199 AC 10/14 PO 2314 Lorazepam 0.5 MG AT BEDTIME 10/13 2199 AC 10/14 PO 10/20 215 2318 Losartan Potassium 50 MG AT BEDTIME 10/13 2244 AC 10/14 PO 2318 Methylprednisolone 40 MG Q12 10/14 2199 AC 10/14 IV 2313 Methylprednisolone 40 MG Q8 10/13 220 DC 10/14 IV 0629 Montelukast Sodium 10 MG AT BEDTIME 10/13 2244 AC 10/14 PO 2314 Oxycodone HCl 10 MG Q6P PRN 10/13 1929 AC PO Sertraline HCl 50 MG DAILY 10/14 1000 AC 10/14 PO 1029 Tiotropium [place] 1 PUF DAILY 10/13 1925 AC 10/14 INH 1030 Vital Signs & I&O Last 24 Hrs of Vitals and I&O: Vital Signs Date Time Temp Pulse Resp B/P Pulse O2 O2 Flow FiO2 Ox Delivery Rate 10/15 0857 98.4 73 17 153/76 95 Room Air 10/15 0000 96 Room Air 10/14 2348 97.4 95 18 130/60 94 Room Air 10/14 2318 118 130/60 10/14 2145 93 Room Air 10/14 1602 97.8 86 18 116/68 93 Room Air 10/14 1600 95 Room Air Intake & Output 10/15 1600 10/15 0800 10/15 0000 Intake Total 0 450 Output Total 300 1450 Balance -300 -1000 Intake, Oral 0 450 Number 0 Bowel Movements Output, Urine 300 1450 Room air sat 95% exam for chest shows clear lung ramírez are no wheezes cardiac exam shows regular S1 and S2 without murmurs Impression/Plan Impression/Plan Impression/Plan: 70-year-old admitted with atrial fibrillation rapid ventricular response and mild exacerbation of COPD Recommendations: DC Solu-Medrol begin prednisone. Further rate control per cardiology
--- NOTE | 2016-10-15 09:48 | ECHOCARDIOGRAM REPORT ---
SHAR BELLO Age: 70 : 1945 Gender: F Exam Date: 10/14/2016 09:29 Exam Location: [facility] Ht (in): 61 Wt (lb): 230 BSA: 2.18 BP: 96 / 56 Ordering Physician: EDUARDO CALVIN MD Referring Physician: EDUARDO CALVIN MD Technologist: Lopez Mckeon [facility] Room Number: [id number] Indications: AFIB/FLUTTER Rhythm: Atrial fibrillation Technical Quality: fair FINDINGS Left Ventricle Normal left ventricular size, wall thickness and systolic function with no obvious regional wall motion abnormalities. The ejection fraction is visually estimated at 65-70 %. Right Ventricle The right ventricle is milldy enlarged with normal function. Right Atrium The right atrium is normal in size. Left Atrium The left atrium is normal in size. The interatrial septum is intact. Mitral Valve The mitral valve is normal in structure and function. There is trace mitral regurgitation. Aortic Valve Structurally normal aortic valve without significant sclerosis or stenosis. There is mild aortic regurgitation. Tricuspid Valve The tricuspid valve is normal in structure and function. There is trace tricuspid regurgitation. Pulmonary artery systolic pressure is normal. Pulmonic Valve Structurally normal pulmonic valve. There is no pulmonic regurgitation. Pericardium Normal pericardium without effusion. No pleural effusion. Great Vessels Normal aortic root dimension. The aortic arch and great vessels are well seen and are normal. CONCLUSIONS 1. Normal EF of 65-70% 2. Mild right ventricular enlargement. 3. Trace mitral regurgitation. 4.. Trace tricuspid regurgitation. 5. Mild aortic insufficiency. Jean Ha M.D. (Electronically Signed) Final Date: 15 October 2016 09:47 MEASUREMENTS (Male / Female) Normal Values 2D ECHO LV Diastolic Diameter PLAX 4.9 cm 4.2 - 5.9 / 3.9 - 5.3 cm LV Systolic Diameter PLAX 4.0 cm 2.1 - 4.0 cm LV Fractional Shortening PLAX 18.4 % 25 - 46 % LV Ejection Fraction 2D Teich 38.0 % IVS Diastolic Thickness 1.3 cm LVPW Diastolic Thickness 1.0 cm LV Relative Wall Thickness 0.5 LVOT Diameter 2.0 cm Aortic Root Diameter 3.3 cm LA Systolic Diameter LX 3.4 cm 3.0 - 4.0 / 2.7 - 3.8 cm LV Ejection Fraction MOD BP 68.2 % >= 55 % LV Diastolic Length 4C 7.7 cm 6.9 - 10.3 cm LV Diastolic Area 4C 32.2 cm LV Diastolic Volume MOD 4C 112.0 cm LV Ejection Fraction MOD 4C 72.3 % LV Stroke Volume MOD 4C 81.0 cm LV Systolic Length 4C 5.8 cm LV Systolic Area 4C 14.7 cm LV Systolic Volume MOD 4C 31.0 cm LV Ejection Fraction MOD 2C 60.3 % LV Diastolic Volume 4C AL 115.1 cm 85 - 139 / 69 - 109 cm LV Systolic Volume 4C AL 31.9 cm LV Ejection Fraction 4C AL 72.2 % LV Stroke Volume 4C AL 83.1 cm LV Ejection Fraction 2C AL 62.2 % LA Volume 90.0 cm 18 - 58 / 22 - 52 cm Ascending Aorta Diameter 3.3 cm DOPPLER AV Peak Velocity 193.0 cm/s AV Peak Gradient 14.9 mmHg AV Mean Velocity 127.0 cm/s AV Mean Gradient 8.0 mmHg AV Velocity Time Integral 33.5 cm LVOT Peak Velocity 120.0 cm/s LVOT Peak Gradient 5.8 mmHg LVOT Mean Velocity 79.8 cm/s LVOT Mean Gradient 3.0 mmHg LVOT Velocity Time Integral 22.7 cm LVOT Stroke Volume 71.3 cm AV Area Cont Eq vti 2.1 cm AV Area Cont Eq pk 2.0 cm Mitral E Point Velocity 110.3 cm/s MV Deceleration Time 119.7 ms TR Peak Velocity 270.0 cm/s TR Peak Gradient 29.2 mmHg PV Peak Velocity 102.6 cm/s PV Peak Gradient 4.2 mmHg PV Mean Velocity 69.6 cm/s PV Mean Gradient 2.0 mmHg PV Velocity Time Integral 19.6 cm
[2016-10-15 11:13] LABS: WHITE BLOOD CELL COUNT 14.5 /CUMM (4.8-10.8)
--- NOTE | 2016-10-15 13:49 | PN- Cardiology ---
Subjective Subjective: The patient is sitting in her bed having lunch at the time she was seen. She remains in atrial fibrillation. Her rate is fairly well-controlled but she still has episodes of elevated heart rate with any activity. With activity, she remains dyspneic as well. Objective Vital Signs and I&Os Vital Signs Date Time Temp Pulse Resp B/P Pulse O2 O2 Flow FiO2 Ox Delivery Rate 10/15 0932 93 Room Air Room Air 10/15 0857 98.4 73 17 153/76 95 Room Air 10/15 0800 Room Air 10/15 0000 96 Room Air 10/14 2348 97.4 95 18 130/60 94 Room Air 10/14 2318 118 130/60 10/14 2145 93 Room Air 10/14 1602 97.8 86 18 116/68 93 Room Air 10/14 1600 95 Room Air Intake & Output 10/15 1600 10/15 0800 10/15 0000 10/14 1600 10/14 0800 10/14 0000 Intake Total 0 450 240 737 350 Output Total 300 1450 600 300 Balance -300 -1000 -360 437 350 Intake, IV 637 150 Intake, Oral 0 450 240 100 200 Number 0 0 Bowel Movements Output, Urine 300 1450 600 300 Patient 230 lb Weight Current Medications: Current Medications Sig/Jerel Start time Last Medication Dose Route Stop Time Status Admin Acetaminophen 650 MG Q6P PRN 10/13 1929 AC PO Acetaminophen/ 1 TAB Q6P PRN 10/13 1929 AC Hydrocodone Bitart PO Albuterol Sulfate 3 ML TID 10/14 1000 AC 10/15 INH 0931 Albuterol Sulfate 2 PUF Q6H PRN 10/13 1929 AC INH Apixaban 5 MG BID 10/13 1914 AC 10/15 PO 0948 Aspirin 81 MG DAILY 10/14 1000 AC 10/15 PO 0948 Atorvastatin Calcium 10 MG 1700 10/14 1700 AC 10/14 PO 2314 Azithromycin 500 MG DAILY 10/13 1921 AC 10/15 Dextrose/Water 250 ML IV 0949 Budesonide/ 2 PUF BID 10/13 2199 DC Formoterol Fumarate INH Diltiazem HCl 360 MG DAILY 10/15 1000 AC 10/15 PO 0948 Diltiazem HCl 125 MG Q12H 10/13 1615 DC 10/14 Sodium Chloride 100 ML IV 0628 Furosemide 40 MG DAILY 10/13 1923 AC 10/15 PO 0948 Gabapentin 800 MG BID 10/13 2199 AC 10/15 PO 0948 Lorazepam 0.5 MG AT BEDTIME 10/13 2199 AC 10/14 PO 10/20 Losartan Potassium 50 MG AT BEDTIME 10/13 2244 AC 10/14 PO 2318 Methylprednisolone 40 MG Q12 10/14 2199 DC 10/15 IV 0949 Methylprednisolone 40 MG Q8 10/13 2199 DC 10/14 IV 0629 Montelukast Sodium 10 MG AT BEDTIME 10/13 2244 AC 10/14 PO 2314 Oxycodone HCl 10 MG Q6P PRN 10/13 193 AC PO Prednisone 40 MG DAILY 10/16 1000 AC PO Sertraline HCl 50 MG DAILY 10/14 1000 AC 10/15 PO 0949 Tiotropium [place] 1 PUF DAILY 10/13 1925 AC 10/15 INH 0947 Results Last 48 Hrs of Labs/Mics: Laboratory Tests 10/15/16 0620: Anion Gap 13, Estimated GFR > 60, BUN/Creatinine Ratio 35.0 H, Magnesium 1.9, CBC w Diff NO MAN DIFF REQ, RBC 4.46, MCV 83.1, MCH 27.0, RDW 15.9 H, MPV 8.2, Gran % 94.0 H, Lymphocytes % 4.6 L, Monocytes % 1.4 L, Eosinophils % 0, Basophils % 0 L, Absolute Granulocytes 13.6 H, Absolute Lymphocytes 0.7 L, Absolute Monocytes 0.2, Absolute Eosinophils 0, Absolute Basophils 0, PUBS MCHC 32.5 L 10/14/16 0600: Lactic Acid Cancelled, CBC w Diff Cancelled, WBC Cancelled, RBC Cancelled, Hgb Cancelled, Hct Cancelled, MCV Cancelled, MCH Cancelled, RDW Cancelled, Plt Count Cancelled, MPV Cancelled, PUBS MCHC Cancelled 10/14/16 0200: Anion Gap 9, Estimated GFR > 60, BUN/Creatinine Ratio 27.5 H, Lactic Acid 1.9, CBC w Diff NO MAN DIFF REQ, RBC 4.34, MCV 81.7, MCH 26.8 L, RDW 15.4 H, MPV 7.9, Gran % 91.6 H, Lymphocytes % 7.7 L, Monocytes % 0.7 L, Eosinophils % 0, Basophils % 0 L, Absolute Granulocytes 6.1, Absolute Lymphocytes 0.5 L, Absolute Monocytes 0 L, Absolute Eosinophils 0, Absolute Basophils 0, PUBS MCHC 32.9 L 10/13/16 2220: Troponin I < 0.01 10/13/16 2220: Lactic Acid 3.9 H 10/13/16 1621: CBC w Diff NO MAN DIFF REQ, RBC 4.64, MCV 82.3, MCH 26.5 L, RDW 15.8 H, MPV 7.7, Gran % 85.8 H, Lymphocytes % 9.1 L, Monocytes % 4.4, Eosinophils % 0.1, Basophils % 0.6, Absolute Granulocytes 8.8 H, Absolute Lymphocytes 0.9 L, Absolute Monocytes 0.4, Absolute Eosinophils 0, Absolute Basophils 0.1, PUBS MCHC 32.2 L 10/13/16 1535: Anion Gap 12, Estimated GFR > 60, BUN/Creatinine Ratio 30.0 H, Glucose 189 H, Lactic Acid 2.3 H, Calcium 8.9, Total Bilirubin 0.4, AST 20, ALT 26, Alkaline Phosphatase 62, Troponin I < 0.01, Gcb-F-Oxhcvhxeiva Pept 1490 H, Total Protein 6.2 L, Albumin 3.4 L, Globulin 2.8, Albumin/Globulin Ratio 1.2, TSH 0.864, Free T4 1.20, PT 12.4, INR 1.18, APTT 29 Assessment/Plan Assessment/Plan Assessment: 1. Atrial fibrillation with rapid ventricular rate 2. COPD exacerbation 3. Hypertension 4. Hyperlipidemia Recommendations: -The patient's Cardizem dose was increased to 360 mg daily today. We will monitor her heart rate over the next 24 hours and make further changes at that time. -Continue current anticoagulation regimen -If tolerated, please ambulate the patient later today with close monitoring of her heart rate with ambulation, oxygen saturations, etc. -Hopefully with improvement in the patient's underlying pulmonary status, her heart rate control also improved. -If necessary, a second agent may need to be added for rate control. Further plans in 24 hours Continue telemetry? Yes
--- NOTE | 2016-10-15 15:32 | NUR ---
PATIENT AMBULATES IN [place]; SPO2 93% ON RA; HR 110'S AFIB; REPORTS EXSOB; TACHYPNIC RR30; WANTS TO GO BACK TO BED
[2016-10-15 15:59] VITALS: BP 98/51
[2016-10-16 00:16] VITALS: BP 122/70
[2016-10-16 08:34] VITALS: BP 138/73
[2016-10-16 10:24] LABS: ABSOLUTE BASOPHIL COUNT 0 /CUMM (0.0-0.2); ABSOLUTE EOSINOPHIL COUNT 0 /CUMM (0.0-0.7); ABSOLUTE GRANULOCYTE CT 13.9 /CUMM (1.4-6.5); ABSOLUTE LYMPH COUNT 0.9 /CUMM (1.2-3.4); ABSOLUTE MONOCYTE COUNT 0.7 /CUMM (0.10-0.60); BASOPHIL % 0.3 % (0.0-2.0); EOSINOPHIL % 0 % (0-5); GRANULOCYTE % 89.5 % (42.2-75.2); HEMATOCRIT 37.1 % (37-47); MEAN CORPUSCULAR HGB CONC 32.5 G/DL (33.0-37.0); MEAN PLATELET VOLUME 8.1 FL (7.4-10.4); PLATELET COUNT 303 /CUMM (130-400); RED BLOOD CELL CT 4.47 /CUMM (4.20-5.40); WHITE BLOOD CELL COUNT 15.5 /CUMM (4.8-10.8)
--- NOTE | 2016-10-16 10:56 | PN- Housestaff ---
Subjective Follow-up For: Atrial fibrillation COPD exacerbation Subjective: Patient was seen and examined this morning. She complains of persisting wheezing and cough with scanty yellow sputum. She also endorses shortness of breath on exertion. She gives a history of chronic UTI and currently only complains of increased urinary urgency, dark yellow colored urine and stress incontinence. No burning/ blood in urine. She has not had a bowel movement since admission but is passing flattus. Review of Systems Constitutional: Denies: see HPI. Objective Last 24 Hrs of Vital Signs/I&O Vital Signs Date Time Temp Pulse Resp B/P Pulse O2 O2 Flow FiO2 Ox Delivery Rate 10/16 1636 98.3 79 18 103/57 92 Room Air 10/16 0834 97.9 70 17 138/73 93 Room Air 10/16 0826 97 Room Air 10/16 0800 Room Air 10/16 0016 97.9 95 20 122/70 94 10/15 2140 90 118/76 10/15 2018 94 Room Air Room Air Intake & Output 10/16 1600 10/16 0800 10/16 0000 Intake Total 720 550 Output Total 500 Balance 720 50 Intake, Oral 720 550 Output, Urine 500 Physical Exam General Appearance: Alert, Oriented X3, Cooperative, No Acute Distress Skin: No Rashes, No Breakdown, No Significant Lesion Cardiovascular: Regular Rate, Normal S1, Normal S2, No Murmurs Lungs: bilateral expiratory wheeze Abdomen: Normal Bowel Sounds, Soft, No Tenderness Neurological: Normal Gait, Normal Speech, Strength at 5/5 X4 Ext, Normal Tone Extremities: No Clubbing, No Cyanosis, bilateral pedal edema Assessment/Plan Assessment: Jesenia is a 70 year old lady with past medical history of COPD not on home oxygen , obstructive sleep apnea on CPAP, hypertension, hyperlipidemia, supraventricular tachycardia (?paroxysmal atrial fibrillation not on anticoagulation), 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 patient presented from PCP office after an EKG that showed atrial fibrillation with rapid ventricular response. On admission Vital signs 96.2, pulse 113 irregular rhythm, respiratory rate 20 on room air saturation 94%, blood pressure 121/90 Labs WBC 10.2, platelet 320, H&H 12.3/38.2, sodium 138, potassium 4.3, chloride 103, bicarbonate 24, BUN 24, creatinine 0.8 Chest x-ray showed no acute distress and no radiographic signs of CHF Problem list #Atrial fibrillation with rapid ventricular response #COPD exacerbation #Hypertension and hyperlipidemia #Atrial fibrillation with rapid ventricular response -Patient has past medical history of supraventricular tachycardia was on Cardizem -Patient has recent history of flue like illness that could predispose for atrial fibrillation -On admission patient was on IV drip heparin and Cardizem -Serial troponins less than 0.01 with no EKG changes -Echo ejection fraction 65-70 %. -Continue cardizem 360 mg daily per cardiology -Continue Eliquis for anticoagulation #SOB, likely due to COPD exacerbation -Continue prednisone 40 mg daily a month f -Zithromax for 5 days -TRC and nebulizer 3 times a day and as needed -Continue montelukast 10 mg daily -Encouraged ambulation -Doppler US of LE didn't show any signs of deep venous thrombosis #Hypertension and hyperlipidemia -Continue atorvastatin 10 mg daily -Continue losartan 50 mg daily -Aspirin 80 mg daily -Continue furosemide 40 mg daily -per cardiology if BP <100mmHg systolic decrease clonidine patch to 0.1mg/hr or hold entirely Diet heart healthy diet DVT prophylaxis heparin drip Code full Consultation cardiology and pulmonology Problem List: 1. COPD exacerbation 2. Atrial fibrillation Pain Ratin Pain Location: n/a Pain Goal: Pain 4 or less Pain Plan: See medication Tomorrow's Labs & Rationales: cbc, cmb
--- NOTE | 2016-10-16 11:18 | PN- Pulmonary ---
Subjective HPI/Critical Care Issues: Patient shortness breath and wheezing is improved Objective Current Medications: Current Medications Sig/Jerel Start time Last Medication Dose Route Stop Time Status Admin Acetaminophen 650 MG Q6P PRN 10/13 1929 AC PO Acetaminophen/ 1 TAB Q6P PRN 10/13 1929 AC Hydrocodone Bitart PO Albuterol Sulfate 3 ML TID 10/14 1000 AC 10/16 INH 0823 Albuterol Sulfate 2 PUF Q6H PRN 10/13 1929 AC INH Apixaban 5 MG BID 10/13 1914 AC 10/16 PO 0946 Aspirin 81 MG DAILY 10/14 1000 AC 10/16 PO 0946 Atorvastatin Calcium 10 MG 1700 10/14 1700 AC 10/15 PO 1731 Azithromycin 250 MG DAILY 10/16 1200 AC PO 10/17 1001 Azithromycin 500 MG DAILY 10/13 1921 DC 10/16 Dextrose/Water 250 ML IV 0945 Budesonide/ 2 PUF BID 10/13 2199 DC Formoterol Fumarate INH Diltiazem HCl 360 MG DAILY 10/15 1000 AC 10/16 PO 0946 Fluticasone 2 SPRAY DAILY 10/16 1000 AC 10/16 Propionate ANGELA 0945 Furosemide 40 MG DAILY 10/13 1923 AC 10/16 PO 0946 Gabapentin 800 MG BID 10/13 2199 AC 10/16 PO 0946 Lorazepam 0.5 MG AT BEDTIME 10/13 2199 AC 10/15 PO 10/20 215 224 Losartan Potassium 50 MG AT BEDTIME 10/13 2244 AC 10/15 PO 2140 Methylprednisolone 40 MG Q12 10/14 2200 DC 10/15 IV 0949 Montelukast Sodium 10 MG AT BEDTIME 10/13 224 AC 10/15 PO 2138 Oxycodone HCl 10 MG Q6P PRN 10/13 193 AC PO Polyethylene Glycol 17 GM DAILY 10/16 1000 AC 10/16 PO 0945 Prednisone 40 MG DAILY 10/16 1000 AC 10/16 PO 0946 Senna/Docusate Sodium 1 TAB BID PRN 10/15 2229 AC 10/15 PO 2249 Sertraline HCl 50 MG DAILY 10/14 1000 AC 10/16 PO 0946 Tiotropium [place] 1 PUF DAILY 10/13 1925 AC 10/16 INH 0945 Vital Signs & I&O Last 24 Hrs of Vitals and I&O: Vital Signs Date Time Temp Pulse Resp B/P Pulse O2 O2 Flow FiO2 Ox Delivery Rate 10/16 0834 97.9 70 17 138/73 93 Room Air 10/16 0826 97 Room Air 10/16 0800 Room Air 10/16 0016 97.9 95 20 122/70 94 10/15 2140 90 118/76 10/15 2017 94 Room Air Room Air 10/15 1600 Room Air 10/15 1559 97.8 83 98/51 92 Room Air Intake & Output 10/16 1600 10/16 0800 10/16 0000 Intake Total 550 Output Total 500 Balance 50 Intake, Oral 550 Output, Urine 500 Room air oxygen saturation 9397% exam for chest shows decreased wheezing cardiac exam shows regular S1 and S2 without murmurs Impression/Plan Impression/Plan Impression/Plan: 70-year-old admitted with atrial fibrillation rapid ventricular response and mild exacerbation of COPD Recommendations: Continue present dose of steroids. Increase ambulation
--- NOTE | 2016-10-16 16:02 | PN- Cardiology ---
Subjective Subjective: The patient is resting comfortably. Her respiratory status is slightly improved today. Her heart rate remains controlled at rest. With ambulation, her heart rate rises slowly but is better controlled today than yesterday. She denies any other symptoms. Objective Vital Signs and I&Os Vital Signs Date Time Temp Pulse Resp B/P Pulse O2 O2 Flow FiO2 Ox Delivery Rate 10/16 0834 97.9 70 17 138/73 93 Room Air 10/16 0826 97 Room Air 10/16 0800 Room Air 10/16 0016 97.9 95 20 122/70 94 10/15 2140 90 118/76 10/15 2017 94 Room Air Room Air Intake & Output 10/16 1600 10/16 0800 10/16 0000 10/15 1600 10/15 0800 10/15 0000 Intake Total 720 550 970 0 450 Output Total 435 419 3442 Balance 720 50 970 -300 -1000 Intake, IV 250 Intake, Oral 720 550 720 0 450 Number 0 Bowel Movements Output, Urine [phone] Physical Exam: General Appearance: Alert, Oriented X3, Cooperative, No Acute Distress Cardiovascular: Regular Rate, Normal S1, Normal S2, No Murmurs Lungs: mild bilateral wheezing Abdomen: Normal Bowel Sounds, Soft, No Tenderness Extremities: No Clubbing, No Cyanosis, No Edema Current Medications: Current Medications Sig/Jerel Start time Last Medication Dose Route Stop Time Status Admin Acetaminophen 650 MG Q6P PRN 10/13 1929 AC PO Acetaminophen/ 1 TAB Q6P PRN 10/13 1929 AC Hydrocodone Bitart PO Albuterol Sulfate 3 ML TID 10/14 1000 AC 10/16 INH 1323 Albuterol Sulfate 2 PUF Q6H PRN 10/13 1929 AC INH Apixaban 5 MG BID 10/13 191 AC 10/16 PO 0946 Aspirin 81 MG DAILY 10/14 1000 AC 10/16 PO 0946 Atorvastatin Calcium 10 MG 1700 10/14 1700 AC 10/15 PO 1731 Azithromycin 250 MG DAILY 10/16 1200 AC 10/16 PO 10/17 1001 1129 Azithromycin 500 MG DAILY 10/13 1921 DC 10/16 Dextrose/Water 250 ML IV 0945 Diltiazem HCl 360 MG DAILY 10/15 1000 AC 10/16 PO 0946 Fluticasone 2 SPRAY DAILY 10/16 1000 AC 10/16 Propionate ANGELA 0945 Furosemide 40 MG DAILY 10/13 1923 AC 10/16 PO 0946 Gabapentin 800 MG BID 10/13 2199 AC 10/16 PO 0946 Lorazepam 0.5 MG AT BEDTIME 10/13 2199 AC 10/15 PO 10/20 Losartan Potassium 50 MG AT BEDTIME 10/13 2244 AC 10/15 PO 2140 Montelukast Sodium 10 MG AT BEDTIME 10/13 2244 AC 10/15 PO 2138 Oxycodone HCl 10 MG Q6P PRN 10/13 1929 AC PO Polyethylene Glycol 17 GM DAILY 10/16 1000 AC 10/16 PO 0945 Prednisone 40 MG DAILY 10/16 1000 AC 10/16 PO 0946 Senna/Docusate Sodium 1 TAB BID PRN 10/15 2229 AC 10/15 PO 224 Sertraline HCl 50 MG DAILY 10/14 999 AC 10/16 PO 0946 Tiotropium [place] 1 PUF DAILY 10/13 1925 AC 10/16 INH 0945 Results Last 48 Hrs of Labs/Mics: Laboratory Tests 10/16/16 0610: Anion Gap 8, Estimated GFR > 60, BUN/Creatinine Ratio 33.3 H, Magnesium 1.9, CBC w Diff NO MAN DIFF REQ, RBC 4.47, MCV 83.0, MCH 27.0, RDW 16.0 H, MPV 8.1, Gran % 89.5 H, Lymphocytes % 5.9 L, Monocytes % 4.3, Eosinophils % 0, Basophils % 0.3, Absolute Granulocytes 13.9 H, Absolute Lymphocytes 0.9 L, Absolute Monocytes 0.7 H, Absolute Eosinophils 0, Absolute Basophils 0, PUBS MCHC 32.5 L 10/15/16 1600: Urine Color YEL, Urine Clarity CLEAR, Urine pH 6.0, Ur Specific [place] 1.015, Urine Protein NEG, Urine Ketones NEG, Urine Nitrite POS H, Urine Bilirubin NEG, Urine Urobilinogen 0.2, Ur Leukocyte Esterase NEG, Ur Microscopic SEDIMENT EXAMINED, Urine RBC RARE, Ur Epithelial Cells FEW, Urine Crystals 1+ [place] OX H, Urine Hemoglobin NEG, Urine Glucose NEG 10/15/16 0620: Anion Gap 13, Estimated GFR > 60, BUN/Creatinine Ratio 35.0 H, Magnesium 1.9, CBC w Diff NO MAN DIFF REQ, RBC 4.46, MCV 83.1, MCH 27.0, RDW 15.9 H, MPV 8.2, Gran % 94.0 H, Lymphocytes % 4.6 L, Monocytes % 1.4 L, Eosinophils % 0, Basophils % 0 L, Absolute Granulocytes 13.6 H, Absolute Lymphocytes 0.7 L, Absolute Monocytes 0.2, Absolute Eosinophils 0, Absolute Basophils 0, PUBS MCHC 32.5 L Assessment/Plan Assessment/Plan Assessment: 1. Atrial fibrillation with rapid ventricular rate 2. COPD exacerbation 3. Hypertension 4. Hyperlipidemia Recommendations: -The patient's Cardizem dose was increased to 360 mg daily yesterday. Today, her heart rate appears to be better controlled. In addition, her heart rate rises less with ambulation. -Continue current anticoagulation regimen -If tolerated, please ambulate the patient later today with close monitoring of her heart rate with ambulation, oxygen saturations, etc. -Hopefully with improvement in the patient's underlying pulmonary status, her heart rate control will continue to improve -Reassess in 24 hours. -If necessary, a second agent may need to be added for rate control. Further plans in 24 hours Continue telemetry? Yes
[2016-10-16 16:36] VITALS: BP 103/57
[2016-10-16 23:00] VITALS: BP 150/86
[2016-10-17 08:01] VITALS: BP 148/90
[2016-10-17 08:37] LABS: ABSOLUTE BASOPHIL COUNT 0 /CUMM (0.0-0.2); ABSOLUTE EOSINOPHIL COUNT 0 /CUMM (0.0-0.7); ABSOLUTE GRANULOCYTE CT 10.7 /CUMM (1.4-6.5); ABSOLUTE LYMPH COUNT 1.7 /CUMM (1.2-3.4); ABSOLUTE MONOCYTE COUNT 0.7 /CUMM (0.10-0.60); BASOPHIL % 0.1 % (0.0-2.0); EOSINOPHIL % 0 % (0-5); GRANULOCYTE % 81.5 % (42.2-75.2); HEMATOCRIT 36.8 % (37-47); MEAN CORPUSCULAR HGB 26.6 PG (27.0-31.0); MEAN CORPUSCULAR HGB CONC 32.4 G/DL (33.0-37.0); MEAN CORPUSCULAR VOLUME 82.2 FL (81.0-99.0); MEAN PLATELET VOLUME 7.8 FL (7.4-10.4); PLATELET COUNT 285 /CUMM (130-400); RBC DISTRIBUTION WIDTH 15.8 % (11.5-14.5); RED BLOOD CELL CT 4.48 /CUMM (4.20-5.40); WHITE BLOOD CELL COUNT 13.1 /CUMM (4.8-10.8)
--- NOTE | 2016-10-17 08:53 | PN- Pulmonary ---
Subjective HPI/Critical Care Issues: 70-year-old woman with new-onset A. fib and COPD. Appears to have an exacerbation of COPD. Impression/Plan Impression/Plan Impression/Plan: 70-year-old woman with history of obstructive sleep apnea on CPAP and COPD was admitted for new onset atrial fibrillation. Pertinent data Vital signs are stable WBC 6.6 with left shift but no bandemia hemoglobin 11.7 hematocrit 35.5 Lactic acid: normalized BEP: BUN/creatinine ratio 27.5 Troponin: Negative Pro-BMP 1490 List of problems #1 atrial fibrillation with rapid ventricular rate #2 COPD exacerbation #3 hypertension #4 hyperlipidemia Plan Atrial fibrillation with rapid ventricular rate * Agree with anticoagulation with a decrease for stroke prevention * Patient is currently on Cardizem drip; heart rate is controlled * Managed her medical team * Follow echo results * Obtain Doppler ultrasound of lower extremity to rule out DVT COPD exacerbation * Decrease IV Solu-Medrol to 40 mg twice a day * Continue Breo * Continue Spiriva * Albuterol INH 3ML Q4; watch for tachycardia * Azithromycin 250 mg by mouth daily for 5 days Obstructive sleep apnea * Continue nocturnal CPAP Asthma maintenance treatments * Continue montelukast 10 mg by mouth daily Hypertension and hyperlipidemia * Managed her medical team Depression * per medical team *
--- NOTE | 2016-10-17 09:21 | PN- Housestaff ---
Subjective Follow-up For: Atrial fibrillation COPD exacerbation Tele-Events Since Last Visit: Atrial fibrillation Rate 69 to a 41 No events Subjective: Patient was seen and examined this morning. She feels better and says her wheeze , chest congestion and cough have improved. She had an uneventful night. Review of Systems Constitutional: Denies: see HPI. Objective Last 24 Hrs of Vital Signs/I&O Vital Signs Date Time Temp Pulse Resp B/P Pulse O2 O2 Flow FiO2 Ox Delivery Rate 10/17 1628 98.8 71 20 137/71 93 Room Air 10/17 0823 93 Room Air Room Air 10/17 0801 97.9 84 20 148/90 93 CPAP 10/17 0000 95 CPAP 10/16 2300 97.8 88 20 150/86 94 Room Air 10/16 2254 87 150/88 Intake & Output 10/17 1600 10/17 0800 10/17 0000 Intake Total 240 120 480 Output Total Balance 240 120 480 Intake, Oral 240 120 480 Number 1 Bowel Movements Physical Exam General Appearance: Alert, Oriented X3, Cooperative, No Acute Distress Skin: No Rashes, No Breakdown, No Significant Lesion HEENT: Atraumatic, PERRLA, EOMI, Mucous Membr. moist/pink Neck: Supple, No LAD Cardiovascular: No Murmurs, irrigular irrigular S1 and S2 Lungs: decreased air entry over L infrascapular region, occasional expiratory wheeze bilaterally Abdomen: Normal Bowel Sounds, Soft, No Tenderness Neurological: Normal Gait, Normal Speech, Strength at 5/5 X4 Ext, Normal Tone, Sensation Intact, Cranial Nerves 3-12 NL, Reflexes 2+ Extremities: No Cyanosis, No Tenderness/Swelling, Bilateral +1 pedal edema Vascular: Normal Pulses Assessment/Plan Assessment: Jesenia is a 70 year old lady with past medical history of COPD not on home oxygen , obstructive sleep apnea on CPAP, hypertension, hyperlipidemia, supraventricular tachycardia (?paroxysmal atrial fibrillation not on anticoagulation), 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 patient presented from PCP office after an EKG that showed atrial fibrillation with rapid ventricular response. On admission Vital signs 96.2, pulse 113 irregular rhythm, respiratory rate 20 on room air saturation 94%, blood pressure 121/90 Labs WBC 10.2, platelet 320, H&H 12.3/38.2, sodium 138, potassium 4.3, chloride 103, bicarbonate 24, BUN 24, creatinine 0.8 Chest x-ray showed no acute distress and no radiographic signs of CHF Problem list #Atrial fibrillation with rapid ventricular response #COPD exacerbation #Hypertension and hyperlipidemia #Atrial fibrillation with rapid ventricular response -Patient has past medical history of supraventricular tachycardia was on Cardizem -Patient has recent history of flue like illness that could predispose for atrial fibrillation -On admission patient was on IV drip heparin and Cardizem -Serial troponins less than 0.01 with no EKG changes -Echo ejection fraction 65-70 %. -Continue cardizem 360 mg daily per cardiology -Continue clonidine TTS2 patch, Due for change on Monday -Continue Eliquis for anticoagulation #SOB, likely due to COPD exacerbation -Continue prednisone 40 mg daily a month f -Zithromax for 5 days, last day is today -TRC and nebulizer 3 times a day and as needed -Continue montelukast 10 mg daily -Encouraged ambulation -Doppler US of LE didn't show any signs of deep venous thrombosis -CT chest with out contrast was ordered today #Hypertension and hyperlipidemia -Continue atorvastatin 10 mg daily -Continue losartan 50 mg daily -Aspirin 80 mg daily -Continue furosemide 40 mg daily -per cardiology if BP <100mmHg systolic decrease clonidine patch to 0.1mg/hr or hold entirely Diet heart healthy diet DVT prophylaxis heparin drip Code full Consultation cardiology and pulmonology Problem List: 1. Atrial fibrillation 2. COPD exacerbation Pain Ratin Pain Location: n/a Pain Goal: Pain 4 or less Pain Plan: see medication Tomorrow's Labs & Rationales: cbc, cmp
--- NOTE | 2016-10-17 09:55 | PN- Cardiology ---
Subjective Subjective: * Breathing is improving but is not back to her baseline. * atrial fibrillation with mildly increased heart rate Objective Vital Signs and I&Os Vital Signs Date Time Temp Pulse Resp B/P Pulse O2 O2 Flow FiO2 Ox Delivery Rate 10/17 822 93 Room Air Room Air 10/17 0801 97.9 84 20 148/90 93 CPAP 10/17 0000 95 CPAP 10/16 2300 97.8 88 20 150/86 94 Room Air 10/16 2254 87 150/88 10/16 1916 95 Room Air 10/16 1636 98.3 79 18 103/57 92 Room Air Intake & Output 10/17 1600 10/17 0800 10/17 0000 10/16 1600 10/16 0800 10/16 0000 Intake Total 120 480 720 550 Output Total 500 Balance 120 480 720 50 Intake, Oral 120 480 720 550 Number 1 Bowel Movements Output, Urine 500 Physical Exam: General: WD/obese female in NAD; alert and oriented x 3 Neck: no JVD, no carotid bruit Heart: irregularly irregular with 2/6 systolic murmur at the RUSB Lungs: diffuse wheezing with decreased air movement, no crackles Extremities: no edema Assessment/Plan Assessment/Plan * Continue oral cardizem at 360mg daily for rate control. We will add digoxin 0.25mg daily for added rate control. * Continue her clonidine TTS2 patch as currently being taken. * Continue Eliquis for stroke prophylaxis. * Follow pulmonary recommendations. Continue telemetry? Yes
--- NOTE | 2016-10-17 10:36 | PN- Pulmonary ---
Subjective HPI/Critical Care Issues: Patient seen and examined, chart reviewed. Patient is well-known to me as an outpatient for which I follow her for COPD and obstructive sleep apnea. She was admitted with atrial fibrillation with rapid ventricular response. During her admission she has had a mild COPD exacerbation and remains on steroid therapy. Objective Current Medications: Current Medications Sig/Jerel Start time Last Medication Dose Route Stop Time Status Admin Acetaminophen 650 MG Q6P PRN 10/13 1929 AC PO Acetaminophen/ 1 TAB Q6P PRN 10/13 1929 AC Hydrocodone Bitart PO Albuterol Sulfate 3 ML TID 10/14 1000 AC 10/17 INH 0821 Albuterol Sulfate 2 PUF Q6H PRN 10/13 1929 AC INH Apixaban 5 MG BID 10/13 1914 AC 10/16 PO 2254 Aspirin 81 MG DAILY 10/14 1000 AC 10/16 PO 0946 Atorvastatin Calcium 10 MG 1700 10/14 1700 AC 10/16 PO 1758 Azithromycin 250 MG DAILY 10/16 1200 AC 10/16 PO 10/17 1001 1129 Azithromycin 500 MG DAILY 10/13 1921 DC 10/16 Dextrose/Water 250 ML IV 0945 Diltiazem HCl 360 MG DAILY 10/15 1000 AC 10/16 PO 0946 Fluticasone 2 SPRAY DAILY 10/16 1000 AC 10/16 Propionate ANGELA 0945 Furosemide 40 MG DAILY 10/13 1923 AC 10/16 PO 0946 Gabapentin 800 MG BID 10/13 2199 AC 10/16 PO 2254 Lorazepam 0.5 MG AT BEDTIME 10/13 2199 AC 10/16 PO 10/20 2159 2254 Losartan Potassium 50 MG AT BEDTIME 10/13 2244 AC 10/16 PO 2254 Montelukast Sodium 10 MG AT BEDTIME 10/13 2245 AC 10/16 PO 2254 Oxycodone HCl 10 MG Q6P PRN 10/13 1930 AC PO Polyethylene Glycol 17 GM DAILY 10/16 1000 AC 10/16 PO 0945 Prednisone 40 MG DAILY 10/16 1000 AC 10/16 PO 0946 Senna/Docusate Sodium 1 TAB BID PRN 10/15 223 AC 10/15 PO 2249 Sertraline HCl 50 MG DAILY 10/14 1000 AC 10/16 PO 0946 Tiotropium [place] 1 PUF DAILY 10/13 192 AC 10/16 INH 0945 Vital Signs & I&O Last 24 Hrs of Vitals and I&O: Vital Signs Date Time Temp Pulse Resp B/P Pulse O2 O2 Flow FiO2 Ox Delivery Rate 10/17 0823 93 Room Air Room Air 10/17 0801 97.9 84 20 148/90 93 CPAP 10/17 0000 95 CPAP 10/16 2300 97.8 88 20 150/86 94 Room Air 10/16 2254 87 150/88 10/16 1916 95 Room Air 10/16 1636 98.3 79 18 103/57 92 Room Air Intake & Output 10/17 1600 10/17 0800 10/17 0000 Intake Total 120 480 Output Total Balance 120 480 Intake, Oral 120 480 Number 1 Bowel Movements Exam General Appearance: no apparent distress, alert, awake, comfortable Head: atraumatic, normal appearance Neck: normal inspection Respiratory: chest non-tender, bilateral wheezing Cardiovascular: irregularly irregular Abdomen: normal bowel sounds, soft, non-tender Extremities: no edema Skin: intact, normal color, warm/dry Results Last 24 Hrs of Lab Results: Laboratory Tests 10/17/16 0605: Anion Gap 9, Estimated GFR > 60, BUN/Creatinine Ratio 32.2 H, Magnesium 1.9, CBC w Diff NO MAN DIFF REQ, RBC 4.48, MCV 82.2, MCH 26.6 L, RDW 15.8 H, MPV 7.8, Gran % 81.5 H, Lymphocytes % 12.7 L, Monocytes % 5.7, Eosinophils % 0, Basophils % 0.1, Absolute Granulocytes 10.7 H, Absolute Lymphocytes 1.7, Absolute Monocytes 0.7 H, Absolute Eosinophils 0, Absolute Basophils 0, PUBS MCHC 32.4 L Impression/Plan Impression/Plan Impression/Plan: 1. Acute exacerbation of COPD, improving on steroids. 2. Obstructive sleep apnea, on nasal CPAP. 3. New onset atrial fibrillation with rapid ventricular response. 4. Chronic RUL inflammatory/architectural distortion which has been stable on repeat CT scanning. 4. 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 Recommendations: * Continue prednisone at 40 mg daily until her wheezing improves. * Continue nocturnal CPAP. * Continue nebs/TRC. * Spiriva to continue. * Please check a non-contrast CT of the chest for follow up of the upperlobe changes. * Rate control/AC/management of AF per cardiology. * Continue all supportive care.
[2016-10-17 16:28] VITALS: BP 137/71
--- NOTE | 2016-10-17 18:25 | CT SCAN REPORT ---
EXAMINATION: CT CHEST WITHOUT CONTRAST CLINICAL INFORMATION: Shortness of breath. Cough. COPD. COMPARISON: CT scan of the chest dated 02/25/2016, 12/03/2015, and 03/05/2012. TECHNIQUE: Multidetector volumetric CT imaging of the chest was obtained noncontrast. Sagittal and coronal reformations were obtained. DLP: 592.31 mGy-cm. FINDINGS: LUNGS: Moderate centrilobular and mild paraseptal emphysema. Mild diffuse thickening of the central airways. Interval development of multifocal patchy peribronchovascular irregular nodular and groundglass opacities seen, primarily in the right upper lobe but also involving the lingula, right middle lobe and patchy regions in the left lower lobe. Findings are suspicious for intercurrent bronchitis and multifocal pneumonia. There is slight volume loss seen in the right middle lobe and lingula with air bronchograms noted. A few scattered calcified granulomas are seen in the lungs. LYMPHOVASCULAR STRUCTURES: Again seen is a laterally located penetrating ulcer in the aortic arch, measuring approximately 1.6 x 0.8 cm, unchanged dating back to 03/05/2012. Ascending aorta is aneurysmal, measuring 4.2 cm in maximal AP diameter at the level of the right main pulmonary artery compared to 4.2 cm (02/25/2016) and 4.0 cm (03/05/2012). Descending aorta at the same level measures 2.8 cm and the aortic arch just beyond the takeoff of the left subclavian artery measures 3.1 cm. Portions of an abdominal aortic stent are included in the upper abdomen. Moderate atherosclerotic calcifications of the aorta and mild three-vessel coronary artery calcifications are seen. Heart size mildly enlarged with primarily left ventricular and left atrial enlargement seen. No pericardial effusion. No mediastinal, hilar or axillary adenopathy or free fluid collection. THYROID GLAND: There is a 1.2 x 0.7 cm diameter low-attenuation mass in the lower pole of the left lobe of the thyroid gland and a 1.1 x 1.2 cm low-attenuation mass in the thyroid isthmus. These are unchanged compared to 02/25/2016 but appear new or larger compared to 03/05/2012. UPPER ABDOMEN: The patient is status post cholecystectomy and papillotomy with extensive pneumobilia again seen in the nondependent portions of the liver, primarily involving the left lobe and the anterior segment of the right lobe. Degree of pneumobilia has significantly increased compared to the prior exam with dilatation of the intrahepatic ducts now noted. Common bile duct measures 1.2 cm in diameter. Included portion of the pancreas is atrophic. Spleen, adrenal glands and included portions of right kidney unremarkable. In upper pole of the left kidney, an exophytic 3.0 x 3.8 cm simple-appearing cyst is seen, similar to prior exams. Included portions of the solid organs in the upper abdomen within normal limits. BONES: There is a minimal convex left thoracic scoliosis and mild thoracic kyphosis with moderate degenerative disc disease throughout the mid and lower thoracic spine. Prominent posterior disc osteophyte complex is seen at the T6-T7 level, causing moderate spinal stenosis at this level, unchanged. No suspicious focal findings. IMPRESSION: 1. Interval development of multifocal parenchymal opacities in both lungs, most confluent in the right upper lobe. Findings are suspicious for interval development of multifocal pneumonia. Close clinical correlation is requested. 2. Underlying moderate emphysematous changes are seen. 3. No pleural effusion or adenopathy is noted. 4. Low-attenuation masses in the lower pole of the left lobe of the thyroid gland and in the thyroid isthmus, similar to 02/25/2016 but increased in size or new compared to 03/05/2012. Consider further assessment with dedicated thyroid ultrasound. 5. Increasing intrahepatic and extrahepatic ductal dilatation, possibly related to postcholecystectomy state and patient's age. Findings are incompletely assessed on this CT scan of the chest. Pneumobilia is seen suggesting prior papillotomy. 6. Upper pole left renal cyst. 7. Prominent posterior disc osteophyte complex at T6-T7, causing moderate spinal stenosis.
[2016-10-18 00:06] VITALS: BP 112/76
[2016-10-18 07:52] LABS: ABSOLUTE BASOPHIL COUNT 0 /CUMM (0.0-0.2); ABSOLUTE EOSINOPHIL COUNT 0 /CUMM (0.0-0.7); ABSOLUTE GRANULOCYTE CT 6.9 /CUMM (1.4-6.5); ABSOLUTE LYMPH COUNT 1.4 /CUMM (1.2-3.4); ABSOLUTE MONOCYTE COUNT 0.5 /CUMM (0.10-0.60); BASOPHIL % 0.3 % (0.0-2.0); EOSINOPHIL % 0.2 % (0-5); GRANULOCYTE % 78.3 % (42.2-75.2); HEMATOCRIT 36.7 % (37-47); MEAN CORPUSCULAR HGB 27.1 PG (27.0-31.0); MEAN CORPUSCULAR HGB CONC 32.8 G/DL (33.0-37.0); MEAN CORPUSCULAR VOLUME 82.8 FL (81.0-99.0); MEAN PLATELET VOLUME 8.1 FL (7.4-10.4); PLATELET COUNT 260 /CUMM (130-400); RBC DISTRIBUTION WIDTH 16.4 % (11.5-14.5); RED BLOOD CELL CT 4.43 /CUMM (4.20-5.40); WHITE BLOOD CELL COUNT 8.9 /CUMM (4.8-10.8)
--- NOTE | 2016-10-18 08:35 | PN- Cardiology ---
Subjective Subjective: * Breathing is improved. * atrial fibrillation with controlled heart rate * BP is also well controlled Objective Vital Signs and I&Os Vital Signs Date Time Temp Pulse Resp B/P Pulse O2 O2 Flow FiO2 Ox Delivery Rate 10/18 0820 93 Room Air Room Air 10/18 0006 98.0 77 18 112/76 93 Room Air 10/18 0000 93 CPAP 10/17 2137 77 110/76 10/17 2110 94 Room Air 10/17 1628 98.8 71 20 137/71 93 Room Air Intake & Output 10/18 1600 10/18 0800 10/18 0000 10/17 1600 10/17 0800 10/17 0000 Intake Total 480 240 240 120 480 Output Total Balance 480 240 240 120 480 Intake, Oral 480 240 240 120 480 Number 1 Bowel Movements Physical Exam: General: WD/obese female in NAD; alert and oriented x 3 Neck: no JVD, no carotid bruit Heart: irregularly irregular with 2/6 systolic murmur at the RUSB Lungs: good air movement without crackles or wheezing Extremities: no edema Assessment/Plan Assessment/Plan * Continue oral cardizem at 360mg daily for rate control. Stop digoxin. This drug does not appear to be needed for rate control. * Continue her clonidine TTS2 patch as currently being taken. * Continue Eliquis for stroke prophylaxis. * Follow pulmonary recommendations. Continue telemetry? Yes
[2016-10-18 08:44] VITALS: BP 13/96
--- NOTE | 2016-10-18 09:37 | PN- Pulmonary ---
Subjective HPI/Critical Care Issues: The patient is awake and alert. She is feeling significantly improved. Her wheezing is less. She has no productive cough, fever, chills, hemoptysis and denies any sputum production whatsoever. Her white blood cell count was within normal limits. Objective Current Medications: Current Medications Sig/Jerel Start time Last Medication Dose Route Stop Time Status Admin Acetaminophen 650 MG Q6P PRN 10/13 1929 AC PO Acetaminophen/ 1 TAB Q6P PRN 10/13 193 AC 10/17 Hydrocodone Bitart PO 1749 Albuterol Sulfate 3 ML TID 10/14 1000 AC 10/18 INH 0818 Albuterol Sulfate 2 PUF Q6H PRN 10/13 193 AC INH Apixaban 5 MG BID 10/13 1914 AC 10/17 PO 2135 Aspirin 81 MG DAILY 10/14 1000 AC 10/17 PO 1003 Atorvastatin Calcium 10 MG 1700 10/14 1700 AC 10/17 PO 1659 Azithromycin 250 MG DAILY 10/16 1200 DC 10/17 PO 10/17 1001 1004 Clonidine 1 PAT Q168 10/19 1000 DC TOP Clonidine 2 PAT Q168 10/19 1000 UNVr TOP Digoxin 0.25 MG 17010/18 1700 CAN PO Diltiazem HCl 360 MG DAILY 10/15 1000 AC 10/17 PO 1003 Fluticasone 2 SPRAY DAILY 10/16 1000 AC 10/17 Propionate ANGELA 1005 Furosemide 40 MG DAILY 10/13 1923 AC 10/17 PO 1003 Gabapentin 800 MG BID 10/13 2199 AC 10/17 PO 2135 Lorazepam 0.5 MG AT BEDTIME 10/13 2199 AC 10/17 PO 10/20 215 223 Losartan Potassium 50 MG AT BEDTIME 10/13 2244 AC 10/17 PO 2137 Montelukast Sodium 10 MG AT BEDTIME 10/13 2245 AC 10/17 PO 2137 Oxycodone HCl 10 MG Q6P PRN 10/13 193 AC PO Polyethylene Glycol 17 GM DAILY 10/16 1000 AC 10/16 PO 0945 Prednisone 40 MG DAILY 10/16 1000 AC 10/17 PO 1004 Senna/Docusate Sodium 1 TAB BID PRN 10/15 2230 AC 10/15 PO 2249 Sertraline HCl 50 MG DAILY 10/14 1000 10/17 PO 1004 Tiotropium [place] 1 PUF DAILY 10/13 1925 AC 10/16 INH 0945 Vital Signs & I&O Last 24 Hrs of Vitals and I&O: Vital Signs Date Time Temp Pulse Resp B/P Pulse O2 O2 Flow FiO2 Ox Delivery Rate 10/18 0844 98.2 67 18 13/96 97 Room Air 10/18 0820 93 Room Air Room Air 10/18 0006 98.0 77 18 112/76 93 Room Air 10/18 0000 93 CPAP 10/17 2137 77 110/76 10/17 2110 94 Room Air 10/17 1628 98.8 71 20 137/71 93 Room Air Intake & Output 10/18 1600 10/18 0800 10/18 0000 Intake Total 480 240 Output Total Balance 480 240 Intake, Oral 480 240 Exam General Appearance: no apparent distress, alert, awake, comfortable Head: atraumatic, normal appearance Neck: normal inspection Respiratory: chest non-tender, significantly improved air entry, minimal wheezing heard at the right base Cardiovascular: irregularly irregular Abdomen: normal bowel sounds, soft, non-tender Extremities: no edema Skin: intact, normal color, warm/dry Results Last 24 Hrs of Lab Results: Laboratory Tests 10/18/16 0610: Anion Gap 10, Estimated GFR > 60, BUN/Creatinine Ratio 25.6 H, CBC w Diff NO MAN DIFF REQ, RBC 4.43, MCV 82.8, MCH 27.1, RDW 16.4 H, MPV 8.1, Gran % 78.3 H , Lymphocytes % 16.0 L, Monocytes % 5.2, Eosinophils % 0.2, Basophils % 0.3, Absolute Granulocytes 6.9 H, Absolute Lymphocytes 1.4, Absolute Monocytes 0.5, Absolute Eosinophils 0, Absolute Basophils 0, PUBS MCHC 32.[address] Scan Findings: 1. Interval development of multifocal parenchymal opacities in both lungs, most confluent in the right upper lobe. Findings are suspicious for interval development of multifocal pneumonia. Close clinical correlation is requested. 2. Underlying moderate emphysematous changes are seen. 3. No pleural effusion or adenopathy is noted. 4. Low-attenuation masses in the lower pole of the left lobe of the thyroid gland and in the thyroid isthmus, similar to 02/25/2016 but increased in size or new compared to 03/05/2012. Consider further assessment with dedicated thyroid ultrasound. 5. Increasing intrahepatic and extrahepatic ductal dilatation, possibly related to postcholecystectomy state and patient's age. Findings are incompletely assessed on this CT scan of the chest. Pneumobilia is seen suggesting prior papillotomy. 6. Upper pole left renal cyst. Impression/Plan Impression/Plan Impression/Plan: 1. Acute exacerbation of COPD, improving on steroids. 2. Interval development of multifocal pneumonia on CT scanning. The patient is afebrile without significant leukocytosis, which is improving on steroids. Her symptoms have significantly improved. The findings on the CT scan suggest a resolving infection as opposed to a current infection. 3. Thyroid nodules which will require ongoing follow-up. 4. Obstructive sleep apnea, on nasal CPAP. 5. New onset atrial fibrillation with rapid ventricular response. 6. Chronic RUL inflammatory/architectural distortion. 7. 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 8. Abdominal findings on CT scan suggesting postcholecystectomy and pneumobilia ? Recommendations: * Continue prednisone at 40 mg today. * Upon discharge, prednisone 40 mg 2 days, 30 mg 3 days, 20 mg 3 days, 10 mg * Continue nocturnal CPAP. * Continue nebs/TRC. * Spiriva to continue. * The patient should resume her home inhaler/nebulizer regimen upon discharge. * She will need to follow up with the COPD clinic after discharge. * Rate control/AC/management of AF per cardiology. * The patient has a stable respiratory status and can be discharged to home from my perspective. I will follow her up as an outpatient. * Continue all supportive care.
--- NOTE | 2016-10-18 13:12 | PN- Housestaff ---
Subjective Follow-up For: Atrial fibrillation COPD exacerbation Tele-Events Since Last Visit: Atrial fibrillation with heart rate 78-82 with PVC Atrial flutter Subjective: Patient was seen adn examined this morning. She feels a lot better and is able to walk more with less degree of shortness of breath. She had no overnight events. Review of Systems Constitutional: Denies: see HPI. Objective Last 24 Hrs of Vital Signs/I&O Vital Signs Date Time Temp Pulse Resp B/P Pulse O2 O2 Flow FiO2 Ox Delivery Rate 10/18 1606 98.2 90 17 123/65 92 Room Air 10/18 0844 98.2 67 18 13/96 97 Room Air 10/18 0820 93 Room Air Room Air 10/18 0006 98.0 77 18 112/76 93 Room Air 10/18 0000 93 CPAP 10/17 2137 77 110/76 10/170 94 Room Air Intake & Output 10/18 1600 10/18 0800 10/18 0000 Intake Total 240 480 240 Output Total Balance 240 480 240 Intake, Oral 240 480 240 Patient 104.326 kg Weight Physical Exam General Appearance: Alert, Oriented X3, Cooperative, No Acute Distress Skin: No Rashes, No Breakdown, No Significant Lesion HEENT: Atraumatic, PERRLA, EOMI, Mucous Membr. moist/pink Neck: Supple Cardiovascular: irregularly irregular heart sounds Lungs: Clear to Auscultation, Normal Air Movement Abdomen: Normal Bowel Sounds, Soft, No Tenderness Neurological: Normal Gait, Normal Speech, Strength at 5/5 X4 Ext, Normal Tone, Sensation Intact, Cranial Nerves 3-12 NL, Reflexes 2+ Extremities: No Clubbing, No Cyanosis, No Edema, Normal Pulses, No Tenderness/ Swelling Vascular: Normal Pulses Assessment/Plan Assessment: Jesenia is a 70 year old lady with past medical history of COPD not on home oxygen , obstructive sleep apnea on CPAP, hypertension, hyperlipidemia, supraventricular tachycardia (?paroxysmal atrial fibrillation not on anticoagulation), 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 patient presented from PCP office after an EKG that showed atrial fibrillation with rapid ventricular response. On admission Vital signs 96.2, pulse 113 irregular rhythm, respiratory rate 20 on room air saturation 94%, blood pressure 121/90 Labs WBC 10.2, platelet 320, H&H 12.3/38.2, sodium 138, potassium 4.3, chloride 103, bicarbonate 24, BUN 24, creatinine 0.8 Chest x-ray on admission showed no acute distress and no radiographic signs of CHF CT chest without contrast on 10/17 1. Interval development of multifocal parenchymal opacities in both lungs, most confluent in the right upper lobe. Findings are suspicious for interval development of multifocal pneumonia. Close clinical correlation is requested. 2. Underlying moderate emphysematous changes are seen. 3. No pleural effusion or adenopathy is noted. 4. Low-attenuation masses in the lower pole of the left lobe of the thyroid gland and in the thyroid isthmus, similar to 02/25/2016 but increased in size or new compared to 03/05/2012. Consider further assessment with dedicated thyroid ultrasound. 5. Increasing intrahepatic and extrahepatic ductal dilatation, possibly related to postcholecystectomy state and patient's age. Findings are incompletely assessed on this CT scan of the chest. Pneumobilia is seen suggesting prior papillotomy. 6. Upper pole left renal cyst. 7. Prominent posterior disc osteophyte complex at T6-T7, causing moderate spinal stenosis. Problem list #Atrial fibrillation with rapid ventricular response #COPD exacerbation #Hypertension and hyperlipidemia #Atrial fibrillation with rapid ventricular response -Patient has past medical history of supraventricular tachycardia was on Cardizem -Patient has recent history of flue like illness that could predispose to atrial fibrillation -On admission patient was on IV drip heparin and Cardizem -Serial troponins less than 0.01 with no EKG changes -Echo ejection fraction 65-70 %. -Continue cardizem 360 mg daily per cardiology -Continue clonidine TTS2 patch, Due for change on Monday -Will hold for digoxin given controlled heart rate -Continue Eliquis for stroke anticoagulation -Patient is for discharge today #SOB, likely due to COPD exacerbation -Continue prednisone 40 mg PO for 2 days, 30 mg for 3 days, 20 mg for 3 days, 10 mg for 3 days, 5 mg for 3 days -Zithromax for 5 days, and by the course was completed yesterday -TRC and nebulizer 3 times a day and as needed -Continue montelukast 10 mg daily -Encouraged ambulation -Doppler US of LE didn't show any signs of deep venous thrombosis -CT chest with suspicious finding for multifocal pneumonia, with hold off antibiotics given that the patient is clinically improved with no history of fever or WBC -We'll follow up with Dr. Nath as an outpatient and will follow up in COPD clinic #Hypertension and hyperlipidemia -Continue atorvastatin 20 mg daily -Continue losartan 50 mg daily -Aspirin 81 mg daily -Continue furosemide 40 mg daily Diet heart healthy diet DVT prophylaxis heparin drip Code full Consultation cardiology and pulmonology Problem List: 1. Rapid atrial fibrillation 2. COPD exacerbation Pain Ratin Pain Location: n/a Pain Goal: Pain 4 or less Pain Plan: see mediaction Tomorrow's Labs & Rationales: none
[2016-10-18] MEDS ORDERED: ELIQUIS5 M1 PO (13:58)
--- NOTE | 2016-10-18 14:02 | Patient Discharge Instructions ---
Discharge Instructions General Discharge Information Special Instructions: Please follow up with your PCP within one week after discharge Please follow up with airplane technician Dr. Ha within one week after discharge Please follow up with DR. Oliveira within one week after discharge Please follow up with the COPD clinic after discharge Acute Coronary Syndrome Inclusion Criteria At DC or during hospital stay patient has or had the following: ACS DIAGNOSIS No Discharge Core Measures Meds if any: Prescribed or Continued at Discharge Meds if any: NOT Prescribed or Continued at Discharge Congestive Heart Failure Inclusion Criteria At DC or during hospital stay patient has or had the following: CHF DIAGNOSIS No Discharge Core Measures Meds if any: Prescribed or Continued at Discharge Meds if any: NOT Prescribed or Continued at Discharge Cerebrovascular accident Inclusion Criteria At DC or during hospital stay patient has or had the following: CVA/TIA Diagnosis No Discharge Core Measures Meds if any: Prescribed or Continued at Discharge Meds if any: NOT Prescribed or Continued at Discharge Venous thromboembolism Inclusion Criteria VTE Diagnosis No VTE Type NONE VTE Confirmed by (Test) NONE Discharge Core Measures - Per Current guidelines, there needs to be overlap - treatment for the first 5 days of Warfarin therapy. - If discharged on Warfarin prior to 5 days of - overlap therapy, the patient will need to be - assessed for post discharge needs including - *Post discharge parental anticoagulation - *Warfarin and/or parental anticoagulation education - *Follow up date to check INR post discharge At least 5 days overlap therapy as Inpatient Yes Meds if any: Prescribed or Continued at Discharge Note: Overlap Therapy is Warfarin and Anticoagulant Meds if any: NOT Prescribed or Continued at Discharge
[2016-10-18] MEDS ORDERED: PREDNISONE10 M2 PO (14:04)
[2016-10-18] MEDS ORDERED: PREDNISONE5 M1 PO (14:04)
[2016-10-18] MEDS ORDERED: LIPITOR20 M2 PO (14:33)
[2016-10-18] MEDS ORDERED: CARDIZEM CD360 M1 PO (14:59)
[2016-10-18 16:06] VITALS: BP 123/65
--- NOTE | 2016-10-18 17:42 | Discharge Summary ---
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 patient presented from PCP office after an EKG that showed atrial fibrillation with rapid ventricular response. Problem list #Atrial fibrillation with rapid ventricular response #COPD exacerbation #Hypertension and hyperlipidemia #Atrial fibrillation with rapid ventricular response -Patient has past medical history of supraventricular tachycardia was on Cardizem -Patient has recent history of flu like illness that could predispose to atrial fibrillation -On admission patient was on IV drip heparin and Cardizem -Serial troponins less than 0.01 with no EKG changes -Echo ejection fraction 65-70 %. -Continued cardizem 360 mg daily per cardiology -Continued clonidine TTS2 patch, Due for change on Monday -Digoxin was withheld given controlled heart rate -Eliquis for stroke anticoagulation #SOB, likely due to COPD exacerbation -CT showed interval development of multifocal parenchymal opacities in both lungs, most confluent in the right upper lobe. Findings are suspicious for interval development of multifocal pneumonia -Continue prednisone 40 mg PO for 2 days, 30 mg for 3 days, 20 mg for 3 days, 10 mg for 3 days, 5 mg for 3 days -Zithromax was given for 5 days -Continue montelukast 10 mg daily -Doppler US of LE didn't show any signs of deep venous thrombosis -CT chest with suspicious finding for multifocal pneumonia, antibiotics was not given as the patient was clinically improved with no history of fever or WBC -She will follow up with Dr. Nath as an outpatient and will follow up in COPD clinic #Hypertension and hyperlipidemia -Continue atorvastatin 20 mg daily -Continue losartan 50 mg daily -Aspirin 81 mg daily -Continue furosemide 40 mg daily Allergies: Coded Allergies: adhesive (IRRITATING TO SKIN 10/13/16) cephalexin (ITCHY 10/13/16) clarithromycin (From BIAXIN) (SEVERE GI UPSET, DIARRHEA 10/13/16) hydrochlorothiazide (ITCHY 10/13/16) metronidazole (HIVES AND SEVERE ITCHING 10/13/16) nitrofurantoin (HIVES 10/13/16) sulfamethoxazole (From BACTRIM) (HIVES 10/13/16) trimethoprim (From BACTRIM) (HIVES 10/13/16) Disposition Summary Disposition Principal Diagnosis: Atrial fibrillation Additional Diagnosis: COPD exacerbation Discharge Disposition: home or self care Discharge Instructions General Discharge Information Code Status: Full Code Patient's Diet: Heart healthy diet Patient's Activity: As tolerated Follow-Up Instructions/Appts: Please follow up with your PCP within one week after discharge Please follow up with counter hand Dr. Ha within one week after discharge Please follow up with DR. Oliveira within one week after discharge Please follow up with the COPD clinic after discharge Medications at Discharge Discharge Medications: Stop taking the following medications: Simvastatin (Zocor) 10 MG TABLET ORAL Every night Continue taking these medications: Lorazepam (Ativan) 0.5 MG TABLET 1 Tablet ORAL AT BED TIME as needed for ANXIETY Comments: Last Taken: 10/17/16 Time: 11:37 PM Diltiazem HCl (Diltiazem 24HR ER) 360 MG CAP.ER.24H 1 Capsule ORAL DAILY Qty = 30 Comments: Last Taken: 10/18/16 Time: 10:34 AM Tiotropium [place] (Spiriva) 18 MCG CAP.W.DEV 1 Capsule Inhale through mouth DAILY Qty = 30 Comments: LAST GIVEN: 11/19/14 @ 1000 FLUTICASONE/VILANTEROL (Breo Ellipta 100-25 Mcg INH) 100 MCG-25 MCG/DOSE BLST.W.DEV 1 PUFF Inhale through mouth DAILY Comments: NOT GIVEN IN HOSPITAL Furosemide (Furosemide) 40 MG TABLET 1 Tablet ORAL DAILY Qty = 180 Comments: NOT GIVEN IN HOSPITAL Aspirin (Aspirin EC) 81 MG TABLET.DR 1 Tablet ORAL DAILY SERTRALINE HCL (Sertraline Hydrochloride) 50 MG TABLET 1 Tablet ORAL DAILY Qty = 90 Clonidine (Clonidine) 0.2 MG/24 HOUR PATCH.TDWK 1 PATCH On the skin Once a Week Qty = 12 Comments: PT REPORTS PATCH APPLIED MON 11/17/14 Naproxen Sodium (Aleve) 220 MG CAPSULE 1 Capsule ORAL TWICE DAILY Comments: NOT GIVEN AT HOSPITAL Albuterol Sulfate (Ventolin Hfa) 90 MCG HFA.AER.AD 2 Puff Inhale through mouth Q6H as needed for RESPIRATORY Comments: Last Taken: 10/18/16 Time: 12:59 PM Gabapentin (Neurontin) 400 MG CAPSULE 2 Capsule ORAL TWICE DAILY Comments: Last Taken: 800 MG 10/18/16 Time: 10:34 AM Losartan Potassium (Cozaar) 50 MG TABLET 1 Tablet ORAL DAILY Comments: Last Taken: 10/17/16 Time: 10:37 PM Lotrisone (Lotrisone Cream) 1 %-0.05 % CREAM..G. 1 Application On the skin TWICE DAILY Instructions: apply to affected area(s) Comments: NOT GIVEN AT HOSPITAL Montelukast Sodium (Singulair) 10 MG TABLET 1 Tablet ORAL DAILY Days = 30 Comments: Last Taken: 10/17/16 Time: 0937 PM Start taking the following new medications: Prednisone (Prednisone) 10 MG TABLET 40 Milligram ORAL DAILY Qty = 8 No Refills Instructions: please take 4 tablets on 10/19 and 10/20 Comments: Prednisone (Prednisone) 10 MG TABLET 30 Milligram ORAL DAILY Qty = 9 No Refills Instructions: Please take 3 tablets on 10/21, 10/22 and 10/23 Prednisone (Prednisone) 10 MG TABLET 20 Milligram ORAL DAILY Qty = 6 No Refills Instructions: please take 2 tablets on 10/24, 10/25 and 10/26 Prednisone (Prednisone) 10 MG TABLET 10 Milligram ORAL DAILY Qty = 3 No Refills Instructions: Please take 1 tablet on 2/2, 2/3 and 2/ Prednisone (Prednisone) 5 MG TABLET 5 Milligram ORAL DAILY Qty = 3 No Refills Instructions: Please take 1 tablet 0n 2/5, 2/6 and 2/7 then stop Apixaban (Eliquis) 5 MG TABLET 1 Tablet ORAL TWICE DAILY Qty = 60 No Refills Comments: Last Taken: 10/18/16 TIME: 10:34 AM Atorvastatin Calcium (Lipitor) 20 MG TABLET 1 Tablet ORAL DAILY Qty = 30 No Refills Comments: Last Taken: 10/17/16 Time: 5:00 PM Diltiazem HCl (Cardizem Cd) 360 MG CAP.ER.24H 1 Capsule ORAL DAILY Qty = 30 No Refills Comments: Last Taken: 10/18/16 Time: 10:34 AM Copies To: LIANNA SAINZ,NELL
== END 2016-10-18 16:50 | DRG 191 ==
LOC: ENRESERVTM → ENRESERVDT → ERH 14:54 → ERHI 17:03 → 1NO 17:03 → ENPENDDIS 17:03 → 1NO 19:17
PROVIDERS: Emergency Medicine; Ophthalmology; Student in an Organized Health Care Education/Training Program; ADMIT Internal Medicine Interventional Cardiology
DX: J44.1 Chronic obstructive pulmonary disease with (acute) exacerbation (principal); Z68.41 Body mass index [BMI] 40.0-44.9, adult; I48.91 Unspecified atrial fibrillation; I47.1 Supraventricular tachycardia; E66.01 Morbid (severe) obesity due to excess calories; G47.33 Obstructive sleep apnea (adult) (pediatric); I10 Essential (primary) hypertension; E78.5 Hyperlipidemia, unspecified
CPT/HCPCS: 1NP; 36415; 81001; 82436; 87086; 93005; 93010; 93306; 93970; 96374; 96375; 99291; J0456; J1644; J2920; J2930; J3490; J7040; J7060

== ENCOUNTER 2016-12-01 15:24 | Inpatient (IN) | payer OTHER ==
[~2016-12-01] VITALS: Ht 154.9 cm; Wt 104.3 kg
[~2016-12-01 15:24] MED LIST changes: +CARDIZEM CD360 M1 PO; +COZAAR50 M1 PO; +ELIQUIS5 M1 PO; +LIPITOR20 M2 PO; +LOTRISONE CREAM15 G1 TOP; +NEURONTIN400 M1 PO; +PREDNISONE10 M2 PO; +PREDNISONE5 M1 PO; +SINGULAIR10 M1 PO; +VENTOLIN HFA18 GM INH
--- NOTE | 2016-12-01 15:27 | NUR ---
PT AWARE OF 1.5 WAIT TIME.
--- NOTE | 2016-12-01 15:35 | NUR ---
TRIAGE; PT TO ED SIB FROM THE COPD CLINIC FOR HIGH HEART RATE. STATES SHE HAS FELT VERY SOB UPON EXERTION. STATES SHE HAD PNEUMONIA AND ADMITTED HERE IN SEPTEMBER. HAS BEEN ON PREDNISONE WHICH ONCE SHE STOPS HER BREATHING GETS WORSE AGAIN. STATES TODAY HER PULSE MONITOR AT HOME WAS JUMPING ALL OVER THE PLACE. WENT TO CLINIC TODAY AND HR WAS ALL OVER AGAIN AND TOLD TO COME TO THE ER. PT STATES SHE ONLY FEELS SOB UPON EXERTION. DENIES CP AT THIS TIME.
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
--- NOTE | 2016-12-01 16:33 | NUR ---
XRAY AT BEDSIDE, NOTED A-FIB ON MONITOR, NO COMPLAINTS
[2016-12-01] MEDS ORDERED: ALBUTEROL2.5 MG/3 M INH/SOL (16:56)
--- NOTE | 2016-12-01 16:56 | RADIOLOGY REPORT ---
EXAMINATION: XR PORTABLE CHEST CLINICAL INFORMATION: Atrial fibrillation, shortness of breath and cough. COMPARISON: CXR from 10/13/2016. Chest CT from 10/14/2016. TECHNIQUE: Portable AP view of the chest was obtained. FINDINGS: Patient has a large body habitus and the prominent tissue of the chest on breasts would partially account for hazy appearance of lower lung zones on this AP portable chest radiograph. There is emphysematous lung disease. Compared to 10/13/2016, there is increased streaky opacity within lower lobes. This could represent worsening atelectasis and/or infectious infiltrates -- if in the right clinical setting. Again noted is a large cardiac silhouette and large central pulmonary vessels. No interstitial pulmonary edema. Thoracic aorta is calcified. No acute skeletal findings. IMPRESSION: 1. Pulmonary emphysema. 2. Atelectasis and/or infectious infiltrates in the lower lobes. 3. Cardiomegaly and vascular congestion without edema.
[2016-12-01] MEDS ORDERED: FLUTICASONE PRO16 GM NASB (17:01)
[2016-12-01] MEDS ORDERED: OMEPRAZOLE20 M2 PO (17:03)
--- NOTE | 2016-12-01 17:04 | NUR ---
LABS DRAWN AND SENT
[2016-12-01 17:13] LABS: ABSOLUTE BASOPHIL COUNT 0 /CUMM (0.0-0.2); ABSOLUTE EOSINOPHIL COUNT 0 /CUMM (0.0-0.7); ABSOLUTE GRANULOCYTE CT 8.8 /CUMM (1.4-6.5); ABSOLUTE LYMPH COUNT 0.7 /CUMM (1.2-3.4); ABSOLUTE MONOCYTE COUNT 0.2 /CUMM (0.10-0.60); BASOPHIL % 0.1 % (0.0-2.0); EOSINOPHIL % 0 % (0-5); MEAN CORPUSCULAR HGB 26.6 PG (27.0-31.0); MEAN CORPUSCULAR VOLUME 83.4 FL (81.0-99.0); MEAN PLATELET VOLUME 7.4 FL (7.4-10.4); PLATELET COUNT 242 /CUMM (130-400); RBC DISTRIBUTION WIDTH 17.6 % (11.5-14.5); RED BLOOD CELL CT 4.56 /CUMM (4.20-5.40); WHITE BLOOD CELL COUNT 9.8 /CUMM (4.8-10.8)
--- NOTE | 2016-12-01 17:16 | NUR ---
PT AMBULATORY TO BATHROOM WITH ONE ASSIST.
[2016-12-01 17:22] LABS: GRANULOCYTE % 90.5 % (42.2-75.2)
--- NOTE | 2016-12-01 17:30 | NUR ---
PT O2 NOTED TO BE 87% ON RA AFTER AMBULATION TO THE BATHROOM, HR BACK IN THE 130'S IRREGULAR. PT SHORT OF BREATH AFTER EXERTION.
--- NOTE | 2016-12-01 17:35 | NUR ---
IV FLUIDS STOPPED AT THIS TIME PER CHANTAL BOCANEGRA.
--- NOTE | 2016-12-01 18:30 | NUR ---
100ML NS OUT, DR DAMON TO STOP FLUIDS
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
--- NOTE | 2016-12-01 20:04 | NUR ---
FOOD TRAY GIVEN, ANTIBIOTICS STARTED
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
--- NOTE | 2016-12-01 20:35 | NUR ---
Emergency Dept [facility] Admit Note: To be admitted to [facility] by DR BACA with COPD/PNA/CHF as the diagnosis, to [facility] location. Nursing [employer] and admitting notified 12/01/16 at 1949 PT WILL GO TO ROOM 209-2
--- NOTE | 2016-12-01 21:04 | Admission Certification ---
Admission Certification Certification Statement - As attending physician, I certify that at the time of - admission, based on clinical presentation, severity of - symptoms, need for further diagnostic testing and - therapeutic interventions, and risk of adverse outcomes - without in-hospital treatment, in my clinical assessment, - this patient requires an acute hospital stay for a minimum - of two nights or longer. I have also considered psychsocial - factors such as support system, advanced age, financial - issues, cognitive issues, and failed out-patient treatments, - past re-admission history, safety of patient, and lack of - compliance as applicable. Specific rationale supporting this admission is: Acute hypoxic respiratory failure, COPD exacerbation and community acquired pneumonia.
--- NOTE | 2016-12-01 22:23 | NUR ---
REPORT TO MICHAEL LOOMIS AND JESENIA CALLED
[2016-12-01 22:45] VITALS: BP 123/62
--- NOTE | 2016-12-01 22:45 | NUR ---
NURSING NOTE: PT ARRIVED TO FLOOR FROM ED VIA WHEELCHAIR BY DISTRIBUTION. PT A&OX3, ON 3.5 L NC, USES CPAP @ NIGHTTIME. PT BROUGHT OWN CPAP MACHINE FROM HOME. PT EX[ERIENCING EXERTIONAL SOB. RESPIRATORY PAGED FOR BREATHING TREATMENT AND TO HELP PUT PT ON CPAP MACHINE. 02 SAT 91% ON CPAP. PT DENIES O2 USE AT HOME. LUNG SOUNDS RHONCHOROUS THROUGHOUT. PT C/O OF NON PRODUCTIVE COUGH. SPUTUM CUP PLACED AT BEDSIDE. IST GIVEN AND PT USING IT. VSS, AFEBRILE. LACTIC ACID DRAWN. MEDS GIVEN THAT WERE NOT GIVEN IN ED. PT CAME UP TO FLOOR WITH 1 BAG OF BELONGINGS. PT SHOWN HOW TO USE CALL KEANE. NO FURTHER ORDERS FROM MD AT THIS TIME. WILL CONTINUE TO MONITOR.
[2016-12-02 06:44] VITALS: BP 130/76
--- NOTE | 2016-12-02 07:26 | PN- Housestaff ---
JORGE SAINZ,[facility] 12/02/16 0725: Subjective Follow-up For: shortness of breath, cough Subjective: I saw and examined the patient at bedside today. She is a pleasant middle-aged lady, she is sitting in chair alert and oriented. She has oxygen per nasal cannula. She reports she had a very good night sleep after a long time. For the first time she used oxygen while being on the CPAP and should she did not wake up at night and did not feel drowsy when he woke up in the morning. Patient reports coughing and wheezing and exertional shortness of breath patient uses 2 pillows at night which has not increased recently. Patient denies any chest pain, palpitation or shortness of breath. Review of Systems Constitutional: Denies: chills, fever, weakness. EENTM: Reports: no symptoms. Cardiovascular: Denies: chest pain, palpitations, peripheral edema. Respiratory: Reports: cough, short of breath, sputum production, wheezing. Gastrointestinal: Reports: no symptoms. Genitourinary: Reports: no symptoms. Musculoskeletal: Reports: no symptoms. Skin: Reports: no symptoms. Neurological/Psychological: Reports: no symptoms. Objective Last 24 Hrs of Vital Signs/I&O Vital Signs Date Time Temp Pulse Resp B/P Pulse O2 O2 Flow FiO2 Ox Delivery Rate 12/02 1118 Nasal 3.0L Cannula 12/02 1117 95 Nasal 3.0L Cannula 12/02 0936 110 130/76 12/02 0800 92 Nasal 3.0L Cannula 12/02 0644 97.7 110 18 130/76 92 Nasal 3.5L Cannula 12/01 2244 97.8 88 22 123/62 91 CPAP 3.5L 12/015 91 Nasal 3.5L Cannula 12/01 2002 96.9 86 18 115/65 90 Nasal 3.0L Cannula 12/01 1638 94 Nasal 2.5L Cannula 12/01 1535 98.2 135 20 124/87 94 Room Air Intake & Output 12/02 1600 12/02 0800 12/02 0000 Intake Total Output Total 300 Balance -300 Output, Urine 300 Patient 104.326 kg Weight Physical Exam General Appearance: Alert, Oriented X3, Cooperative, No Acute Distress Skin: No Significant Lesion HEENT: Atraumatic, EOMI Neck: Supple, No JVD Cardiovascular: Regular Rate, Normal S1, Normal S2, No Murmurs Lungs: wheezing and rhonchi bilaterally and diffuse Abdomen: Soft, No Tenderness Neurological: Normal Speech, Normal Tone Extremities: No Edema, Normal Pulses Vascular: Pulses Symmetrical Current Medications: Current Medications Sig/Ejrel Start time Last Medication Dose Route Stop Time Status Admin Acetaminophen 650 MG Q6P PRN 12/01 2130 AC PO Acetaminophen 1,000 MG Q6P PRN 12/01 2130 AC IV Albuterol Sulfate 3 ML TID 12/02 1600 AC 12/02 INH 1124 Albuterol Sulfate 3 ML ONCE ONE 12/01 1630 DC 12/01 INH 12/01 1631 1638 Apixaban 5 MG BID 12/01 2200 AC 12/02 PO 0936 Aspirin Buffered 81 MG DAILY 12/01 2145 AC 12/02 PO 0936 Atorvastatin Calcium 20 MG 1700 12/02 1700 AC PO Azithromycin 500 MG DAILY 12/02 1000 AC 12/02 Dextrose/Water 250 ML IV 0942 Azithromycin 500 MG ONCE ONE 12/01 1900 DC 12/01 Dextrose/Water 250 ML IV 12/01 1959 2055 Ceftriaxone Sodium 1,000 MG DAILY 12/02 1000 AC 12/02 IV 0942 Ceftriaxone Sodium 1,000 MG ONCE ONE 12/01 1900 DC 12/01 IV 12/01 1901 2055 Ceftriaxone Sodium 0 .STK-MED ONE 12/01 185 DC .ROUTE Diltiazem HCl 360 MG DAILY 12/02 1000 AC 12/02 PO 0935 Fluticasone 2 SPRAY DAILY 12/02 1000 AC 12/02 Propionate ANGELA 0937 Furosemide 40 MG DAILY 12/02 1000 CAN PO Furosemide 40 MG BID 12/02 1000 AC 12/02 IV 0943 Furosemide 0 .STK-MED ONE 12/01 185 DC IV Furosemide 40 MG ONCE ONE 12/01 1845 DC 12/01 IV 12/01 1846 2055 Gabapentin 800 MG BID 12/01 2200 AC 12/02 PO 0943 Guaifenesin 600 MG Q12 12/02 1045 AC PO Ipratropium [place] 2.5 ML ONCE ONE 12/01 1630 DC 12/01 INH 12/01 1631 1638 Lorazepam 0.5 MG AT BEDTIME NEED.. 12/01 2145 AC 12/02 PO 12/08 2144 0002 Losartan Potassium 50 MG DAILY 12/02 1000 AC 12/02 PO 0936 Methylprednisolone 40 MG Q8 12/02 0600 AC 12/02 IV 0608 Methylprednisolone 0 .STK-MED ONE 12/01 2100 DC .ROUTE Methylprednisolone 80 MG ONCE ONE 12/01 2044 DC 12/01 IV 12/01 Montelukast Sodium 10 MG AT BEDTIME 12/01 2200 AC 12/01 PO 2355 Omeprazole 20 MG DAILY 12/02 1000 AC 12/02 PO 0943 Patient Own 1 UNIT DAILY 12/02 1000 AC Medication PO Sertraline HCl 50 MG DAILY 12/02 1000 AC 12/02 PO 0942 Sodium Chloride 1,000 ML BOLUS ONE 12/01 1615 DC 12/01 IV 12/01 1714 1707 Tiotropium [place] 1 PUF DAILY 12/02 1000 AC 12/02 INH 0939 Tramadol HCl 50 MG Q4P PRN 12/01 2130 AC PO Last 24 Hrs of Lab/Kevin Results Last 24 Hrs of Labs/Mics: Laboratory Tests 12/02/16 0650: Anion Gap 13, Estimated GFR > 60, BUN/Creatinine Ratio 23.8, Phosphorus 4.3, Magnesium 1.8, CBC w Diff NO MAN DIFF REQ, RBC 4.56, MCV 83.1, MCH 27.0, RDW 17.3 H, MPV 7.7, Gran % 89.6 H, Lymphocytes % 8.2 L, Monocytes % 2.2, Eosinophils % 0, Basophils % 0 L, Absolute Granulocytes 7.7 H, Absolute Lymphocytes 0.7 L, Absolute Monocytes 0.2, Absolute Eosinophils 0, Absolute Basophils 0, PUBS MCHC 32.5 L 12/02/16 0025: Lactic Acid 2.4 H 12/01/16 1703: Lactic Acid 1.0 12/01/16 1703: Anion Gap 11, Estimated GFR > 60, BUN/Creatinine Ratio 18.9, Glucose 135 H, Calcium 9.0, Magnesium 1.6, Total Bilirubin 0.6, AST 15, ALT 29, Alkaline Phosphatase 57, Troponin I < 0.01, Tkp-H-Yaafiofhqwv Pept 2650 H, Total Protein 6.8, Albumin 4.0, Globulin 2.8, Albumin/Globulin Ratio 1.4, TSH &T3 &Free T4 Intrp 0.501, CBC w Diff NO MAN DIFF REQ, RBC 4.56, MCV 83.4, MCH 26.6 L, RDW 17.6 H, MPV 7.4, Gran % 90.5 H, Lymphocytes % 7.3 L, Monocytes % 2.1, Eosinophils % 0, Basophils % 0.1, Absolute Granulocytes 8.8 H, Absolute Lymphocytes 0.7 L, Absolute Monocytes 0.2, Absolute Eosinophils 0, Absolute Basophils 0, PUBS MCHC 32.0 L Microbiology 12/01 2129 LOWER RESP: Respiratory Culture - COLB 12/01 2129 LOWER RESP: Gram Stain - COLB 12/01 1942 BLOOD: Blood Culture - RES 12/02 1915 BLOOD: Blood Culture - RES Assessment/Plan Assessment: 70-year-old lady with a PMH significant for HTN, HLD, Afib on Elliquis, HFpEF, COPD not on home oxygen, and [place] on CPAP, mesothelioma who presents with worsening exertional dyspnea associated with cough productive of prulent yellow/ greenish sputum and wheezing, concernign for pneumonia vs. acute bronchitis with a component of COPD exacebration. CHF exacerbation unlikely in the absence of peripheral edema and S3. Acute hypoxic respiratory failure 2/2 COPD exacerbation and pneumonia * TRC neb tx PRN * Oxygen support to maintain O2 sat > 88% * Appreciated pulmonary recommendation * Treat COPD exacerbation & PNA as per plans discussed below * Continue oxygen with CPAP at night per Dr. Oliveira's recommendations COPD exacerbation Received one time dose Soulmedrol 80mg IV in the ED, followed by 40 mg IV every 8 IV Solu-Medrol. Rapid flu negative * Decreased IV salmeterol 240 mg IV every 12 per pulmonary recommendations * Continue montelukast 10 mg daily * Pulm recs Community acquired pneumonia * Start CTX and Zithromax IV * Further evaluation with CT chest , will follow * F/u cultures * Monitor for signs of SIRS and HDS Atrial fibrillation with controlled rate Patient carries a history of supraventricular tachycardia for which she is on Cardizem. * Dr. Dilcia Ha made aware that the patient is admitted * continue Lasix 40mg IV BID * Continue Eliquis and Cardizem at home doses * Held beta venkatesh per cardio, further recs from Dr. Garcia appreciated. Patient is transferred to telemetry this evening for closer monitoring as she was reporting palpitation at rest and had tachycardia of 137 and afib on EKG. Dr. Garcia made aware. Hypertension and hyperlipidemia * Continue atorvastatin 10 mg daily * Continue losartan 50 mg daily * Aspirin 80 mg daily * Lasix as aforementioned Diet - heart healthy Mild pain pathway DVTppx - Eliquis Full code Problem List: 1. Hypoxia 2. CHF exacerbation 3. COPD exacerbation Pain Ratin Pain Location: no pain Pain Goal: Pain 4 or less Pain Plan: mild pain pathway Tomorrow's Labs & Rationales: BEP, MG (monitor electrolyte) EDWIN LEW MD 12/02/16 1507: Attending MD Review Statement Attending Statement Attending MD Statement: examined this patient, discuss w/resident/PA/MANAGER MSW, agreed w/resident/PA/MANAGER MSW, reviewed EMR data (avail), discussed with nursing, reviewed images, amended to note Attending Assessment/Plan: The patient was seen and discussed with house staff. Agree with the plan of care. This afternoon had afib on EKG and decreased BP. Troponin I elevated. Will transfer to telemetry for closer observation.
[2016-12-02 07:46] LABS: ABSOLUTE BASOPHIL COUNT 0 /CUMM (0.0-0.2); ABSOLUTE EOSINOPHIL COUNT 0 /CUMM (0.0-0.7); ABSOLUTE GRANULOCYTE CT 7.7 /CUMM (1.4-6.5); ABSOLUTE LYMPH COUNT 0.7 /CUMM (1.2-3.4); ABSOLUTE MONOCYTE COUNT 0.2 /CUMM (0.10-0.60); BASOPHIL % 0 % (0.0-2.0); EOSINOPHIL % 0 % (0-5); MEAN CORPUSCULAR HGB CONC 32.5 G/DL (33.0-37.0); MEAN CORPUSCULAR VOLUME 83.1 FL (81.0-99.0); MEAN PLATELET VOLUME 7.7 FL (7.4-10.4); PLATELET COUNT 241 /CUMM (130-400); RBC DISTRIBUTION WIDTH 17.3 % (11.5-14.5); RED BLOOD CELL CT 4.56 /CUMM (4.20-5.40); WHITE BLOOD CELL COUNT 8.5 /CUMM (4.8-10.8)
[2016-12-02 08:42] LABS: GRANULOCYTE % 89.6 % (42.2-75.2)
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
[2016-12-02 15:49] VITALS: BP 124/80
--- NOTE | 2016-12-02 16:19 | CT SCAN REPORT ---
EXAMINATION: CT CHEST WITH CONTRAST CLINICAL INFORMATION: Cough and shortness of breath. COMPARISON: Chest CT from 10/17/2016. Chest radiograph from 12/01/2016. TECHNIQUE: Multidetector volumetric CT imaging of the chest was obtained after the administration of 94 mL of Optiray 320 intravenous contrast without immediate adverse reactions. Axial MIP volume rendering provided. Sagittal and coronal reformatted images were obtained. DLP: 458 mGy-cm FINDINGS: LUNGS AND PLEURA: Hsolijjq-uo-gkugwl centrilobular emphysema. There are multiple patchy peribronchial opacities in the right upper lobe have either significantly improved or resolved compared to 10/17/2016. There is some residual but decreased centrilobular groundglass opacities. Also, there is a residual irregular, tubular shaped peribronchial opacity in the anterior segment of right upper lobe, likely related to infectious disease of the airways. There are persistent irregular centrilobular nodular opacities in the right middle lobe and there is an area of increased consolidation/atelectasis within the middle lobe (images [id number], series 4). There is new patchy consolidation with air bronchograms and surrounding groundglass attenuation within the anterolateral aspect of the right lower lobe. There are persistent centrilobular opacities within the left lower lobe. The atelectasis within the inferior lingula has slightly increased compared to 10/17/2016. No pneumothorax or pleural effusion. MEDIASTINUM: There is cardiomegaly and moderate atherosclerotic calcification of coronary arteries. Pulmonary arteries are enlarged, consistent with pulmonary arterial hypertension. There is atherosclerotic calcification of the aorta. Again noted is the ectatic ascending thoracic aorta which measures 4.1 cm AP diameter at the level of the right pulmonary artery. 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 The esophagus is unremarkable. The thyroid gland is slightly heterogeneous and the previously noted nodules are suboptimally visualized due to the relatively high image noise. There are no enlarging thyroid nodules. LYMPHATICS: No pathologic sized axillary, hilar or mediastinal lymph nodes. UPPER ABDOMEN: Again, patient is status post cholecystectomy and papillotomy with persistent, extensive pneumobilia. The chronically dilated common bile duct measures 1.4 cm diameter. A 3.5 cm simple cortical cyst is seen at the upper pole of the left kidney. A stent of the atherosclerotic abdominal aorta is partially included in the [id number]-ci-rfdn. OSSEOUS STRUCTURES: No acute findings within the extensively degenerated, hyperkyphotic thoracic spine. IMPRESSION: 1. Wizmkfup-wf-pfewst pulmonary emphysema. 2. Although pneumonia has improved in the right upper lobe, there are persistent findings of infectious bronchiolitis in multiple lobes. Also, an area of increased consolidation is present in the right middle lobe and there is new patchy consolidation with surrounding groundglass attenuation from pneumonia in the anterolateral right lower lobe. No pleural effusion or lymphadenopathy. 3. Cardiomegaly and large pulmonary arteries, consistent with pulmonary arterial hypertension. 4. Stable ectasia of the ascending thoracic aorta (4.1 cm AP diameter at the level of the right pulmonary artery). 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
--- NOTE | 2016-12-02 18:07 | PN- Cardiology ---
Subjective Subjective: * Patient is breathing a bit better although not near her baseline yet. She continues to cough. * atrial fibrillation with controlled heart rate at rest with some excursions of tachycardia with activity * Normal troponin Objective Vital Signs and I&Os Vital Signs Date Time Temp Pulse Resp B/P Pulse O2 O2 Flow FiO2 Ox Delivery Rate 12/02 1652 96 Nasal 3.0L Cannula 12/02 1549 97.5 70 20 124/80 96 Nasal 4.0L Cannula 12/02 1118 Nasal 3.0L Cannula 12/02 1117 95 Nasal 3.0L Cannula 12/02 0936 110 130/76 12/02 0800 92 Nasal 3.0L Cannula 12/02 0644 97.7 110 18 130/76 92 Nasal 3.5L Cannula 12/01 224 97.8 88 22 123/62 91 CPAP 3.5L 12/01 2244 91 Nasal 3.5L Cannula 12/01 2002 96.9 86 18 115/65 90 Nasal 3.0L Cannula Intake & Output 12/02 1600 12/02 0800 12/02 0000 12/01 1600 12/01 0800 12/01 0000 Intake Total 820 Output Total 500 300 Balance 320 -300 Intake, IV 300 Intake, Oral 520 Number 0 Bowel Movements Output, Urine 500 300 Patient 230 lb Weight Physical Exam: General: WD/morbidly obese female in mild distress; alert and oriented x 3 Neck: no JVD, no carotid bruits Heart: irregularly irregular with 2/6 systolic murmur at RUSB Lungs: decreased breath sounds with wheezing bilaterally and upper airway congestion Extremities: no edema Assessment/Plan Assessment/Plan * Continue to treat patient's exacerbation of COPD with steroids, inhalers and antibiotics. * There may be some superimposed CHF but it is minimal. She is doing well on her current dose of Lasix. Change to 40mg PO BID tomorrow. * This patient has intermittent excursions of tachycardia in the setting of physiologic distress. She is well controlled at rest. I would continue her current medications and we can reassess the need for more aggressive medications for rate control if she remains tachycardic once the acute illness has passed. Continue telemetry? Yes
[2016-12-02 23:51] VITALS: BP 116/74
--- NOTE | 2016-12-03 07:48 | PN- Housestaff ---
See Addendum Subjective Follow-up For: Tachycardia on exertion COPD exacerbation PNA Mild CHF exacerbation Tele-Events Since Last Visit: Atrial fibrillation/flutter, HR 82-103, patient tachycardic up to 140s early this AM. PVCs noted. Subjective: Patient seen and examined at bedside this AM. She is sitting up comfortably in a bedside chair without complaint. She reports she was able to walk a short distance down the hallway, however she experiences tachycardia whenever she exerts herself. She denies sputum production but continues to have cough ( improved from yesterday). Review of Systems Constitutional: Denies: chills, fever, malaise. EENTM: Denies: visual changes, hearing changes, nasal congestion. Cardiovascular: Reports: palpitations. Denies: chest pain. Respiratory: Reports: cough, short of breath. Denies: sputum production, wheezing. Gastrointestinal: Denies: abdominal pain, nausea. Genitourinary: Denies: dysuria. Objective Last 24 Hrs of Vital Signs/I&O Vital Signs Date Time Temp Pulse Resp B/P Pulse O2 O2 Flow FiO2 Ox Delivery Rate 12/03 1024 96 Nasal 3.0L Cannula 12/03 0922 140/78 12/03 0757 97.4 110 18 148/90 95 12/03 0000 CPAP 12/02 2351 97.1 100 20 116/74 94 Nasal 3.0L Cannula 12/02 2130 Nasal 3.0L Cannula 12/02 1652 96 Nasal 3.0L Cannula 12/02 1600 Nasal 3.0L Cannula 12/02 1549 97.5 70 20 124/80 96 Nasal 4.0L Cannula Intake & Output 12/03 1600 12/03 0800 12/03 0000 Intake Total 60 251 Output Total 900 250 350 Balance -900 -190 -99 Intake, IV 10 Intake, Oral 50 240 Output, Urine 900 250 350 Physical Exam General Appearance: Alert, Oriented X3, Cooperative, No Acute Distress, Obese female Skin: No Significant Lesion HEENT: Atraumatic, EOMI, Mucous Membr. moist/pink Neck: Supple, +2 Carotid Pulse wo Bruit Cardiovascular: Irregularly irregular Lungs: Diffuse breath sounds bilaterally wiht occasional wheeze Abdomen: Normal Bowel Sounds, Soft Neurological: Normal Speech, Normal Tone Extremities: No Cyanosis Current Medications: Current Medications Sig/Jerel Start time Last Medication Dose Route Stop Time Status Admin Acetaminophen 650 MG Q6P PRN 12/01 2130 AC PO Acetaminophen 1,000 MG Q6P PRN 12/01 2130 AC IV Albuterol Sulfate 3 ML TID 12/02 1600 AC 12/03 INH 1021 Apixaban 5 MG BID 12/01 2200 AC 12/03 PO 0922 Aspirin Buffered 81 MG DAILY 12/01 2145 AC 12/03 PO 0922 Atorvastatin Calcium 20 MG 1700 12/02 1700 AC 12/02 PO 1824 Azithromycin 500 MG DAILY 12/02 1000 AC 12/03 Dextrose/Water 250 ML IV 0924 Ceftriaxone Sodium 1,000 MG DAILY 12/02 1000 AC 12/03 IV 0922 Diltiazem HCl 360 MG DAILY 12/02 1000 AC 12/03 PO 0922 Fluticasone 2 SPRAY DAILY 12/02 1000 AC 12/02 Propionate ANGELA 0937 Furosemide 40 MG 7:30 AM, & 4:30 PM 12/03 0730 AC 12/03 PO 0922 Furosemide 40 MG BID 12/02 1000 DC 12/02 IV 12/02 2300 0943 Gabapentin 800 MG BID 12/01 2200 AC 12/03 PO 0924 Guaifenesin 600 MG Q12 12/02 1045 AC 12/03 PO 0922 Lorazepam 0.5 MG AT BEDTIME NEED.. 12/01 2145 AC 12/02 PO 12/08 2144 2146 Losartan Potassium 50 MG DAILY 12/02 1000 AC 12/03 PO 0922 Methylprednisolone 40 MG Q12 12/02 2200 AC 12/03 IV 0922 Methylprednisolone 40 MG Q8 12/02 0600 DC 12/02 IV 0608 Montelukast Sodium 10 MG AT BEDTIME 12/01 2200 AC 12/02 PO 2147 Omeprazole 20 MG DAILY 12/02 1000 AC 12/03 PO 0922 Patient Medication 1 ED .STK-MED ONE 12/02 1404 DC Teaching ED 12/02 1405 Patient Own 1 UNIT DAILY 12/02 1000 AC Medication PO Polyethylene Glycol 17 GM DAILY 12/03 1138 AC PO Sertraline HCl 50 MG DAILY 12/02 1000 AC 12/03 PO 0922 Tiotropium [place] 1 PUF DAILY 12/02 1000 AC 12/02 INH 0939 Tramadol HCl 50 MG Q4P PRN 12/01 2130 AC PO Last 24 Hrs of Lab/Kevin Results Last 24 Hrs of Labs/Mics: Laboratory Tests 12/03/16 0635: Anion Gap 9, Estimated GFR > 60, BUN/Creatinine Ratio 28.9 H, Magnesium 2.0, CBC w Diff NO MAN DIFF REQ, RBC 4.46, MCV 83.4, MCH 26.6 L, RDW 16.9 H, MPV 8.1, Gran % 92.5 H, Lymphocytes % 5.1 L, Monocytes % 2.2, Eosinophils % 0.2, Basophils % 0 L, Absolute Granulocytes 9.2 H, Absolute Lymphocytes 0.5 L, Absolute Monocytes 0.2, Absolute Eosinophils 0, Absolute Basophils 0, PUBS MCHC 31.9 L 12/02/16 1430: Urine Color YEL, Urine Clarity CLEAR, Urine pH 6.0, Ur Specific [place] 1.025, Urine Protein NEG, Urine Ketones NEG, Urine Nitrite POS H, Urine Bilirubin NEG, Urine Urobilinogen 0.2, Ur Leukocyte Esterase NEG, Ur Microscopic SEDIMENT EXAMINED, Urine RBC RARE, Urine WBC RARE, Ur Epithelial Cells RARE, Urine Bacteria FEW H, Urine Hemoglobin NEG, Urine Glucose 100 H Microbiology 12/03 1136 NASOPHARYN: Influenza Virus A & B Rapid Smear - ORD 12/02 2029 URINE ROUT: Legionella Antigen - COMP 12/02 2029 URINE ROUT: Streptococcus pneumoniae Antigen (M - COMP Orders Radiology Findings: Chest CT: IMPRESSION: 1. [id number] pulmonary emphysema. 2. Although pneumonia has improved in the right upper lobe, there are persistent findings of infectious bronchiolitis in multiple lobes. Also, an area of increased consolidation is present in the right middle lobe and there is new patchy consolidation with surrounding groundglass attenuation from pneumonia in the anterolateral right lower lobe. No pleural effusion or lymphadenopathy. 3. Cardiomegaly and large pulmonary arteries, consistent with pulmonary arterial hypertension. 4. Stable ectasia of the ascending thoracic aorta (4.1 cm AP diameter at the level of the right pulmonary artery). 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 Assessment/Plan Assessment: Ms. Vega is a pleasant 70-year-old lady with a PMH significant for HTN, HLD , Afib on Elliquis, HFpEF, COPD not on home oxygen, MERCEDES on CPAP and mesothelioma who presents with worsening exertional dyspnea associated with cough productive of prulent yellow/greenish sputum and wheezing, concerning for pneumonia vs. acute bronchitis with a component of COPD exacebration. Acute hypoxic respiratory failure requring supplemental O2 * TRC neb tx PRN * Continue mucinex BID * Follow up on flu swab * Oxygen support to maintain O2 sat > 88% * Appreciated pulmonary recommendation * Treat COPD exacerbation & PNA as per plans discussed below * Continue oxygen with CPAP at night per Dr. Oliveira's recommendations * Consider induction of sputum sample if patient able to provide one with coughing COPD exacerbation Received one time dose Soulmedrol 80mg IV in the ED, followed by 40 mg IV every 8 IV Solu-Medrol. Rapid flu negative * Continued IV solumedrol 40 mg IV every 12 per pulmonary recommendations * Continue spiriva * TRC nebs as above, home inhalers Community acquired pneumonia * Patient currently afebrile without leukocytosis * Start CTX and Zithromax IV * F/u cultures (including LRC) * Follow up quick flu * Switch to oral cipro tomorrow if cultures negative * Follow up repeat lactic acid this AM at 1130 as last one was elevated Atrial fibrillation with controlled rate in setting of HFpEF * Continuous tele monitoring to continue * Patient carries a history of supraventricular tachycardia for which she is on Cardizem. * Dr. Ha made aware that the patient is admitted, cardio recs to be followed daily * Lasix 40mg BID switched to PO today * Continue Eliquis * Held beta venkatesh per cardio, further recs from Dr. Garcia appreciated. Hypertension and hyperlipidemia * Continue atorvastatin 10 mg daily * Continue losartan 50 mg daily * Aspirin 80 mg daily * Lasix as aforementioned Diet - heart healthy Mild pain pathway DVTppx - Eliquis Full code Problem List: 1. Hypoxia 2. Pneumonia 3. Rapid atrial fibrillation 4. MERCEDES (obstructive sleep apnea) 5. COPD exacerbation Pain Ratin Pain Location: n/a Pain Goal: Remain pain free Pain Plan: Per pain pathway Tomorrow's Labs & Rationales: BEP (monitor renal function)
[2016-12-03 07:57] VITALS: BP 148/90
[2016-12-03 08:53] LABS: ABSOLUTE BASOPHIL COUNT 0 /CUMM (0.0-0.2); ABSOLUTE EOSINOPHIL COUNT 0 /CUMM (0.0-0.7); ABSOLUTE GRANULOCYTE CT 9.2 /CUMM (1.4-6.5); ABSOLUTE LYMPH COUNT 0.5 /CUMM (1.2-3.4); ABSOLUTE MONOCYTE COUNT 0.2 /CUMM (0.10-0.60); BASOPHIL % 0 % (0.0-2.0); EOSINOPHIL % 0.2 % (0-5); HEMATOCRIT 37.2 % (37-47); MEAN CORPUSCULAR HGB 26.6 PG (27.0-31.0); MEAN CORPUSCULAR HGB CONC 31.9 G/DL (33.0-37.0); MEAN CORPUSCULAR VOLUME 83.4 FL (81.0-99.0); MEAN PLATELET VOLUME 8.1 FL (7.4-10.4); PLATELET COUNT 241 /CUMM (130-400); RBC DISTRIBUTION WIDTH 16.9 % (11.5-14.5); RED BLOOD CELL CT 4.46 /CUMM (4.20-5.40); WHITE BLOOD CELL COUNT 9.9 /CUMM (4.8-10.8)
[2016-12-03 10:05] LABS: GRANULOCYTE % 92.5 % (42.2-75.2)
--- NOTE | 2016-12-03 10:17 | NUR ---
Pt ordered to receive Spiriva, Flonase and Breo this am. Pt brought Breo in from home and was verified by pharmacy. Pt was a transfer from yesterday and meds were not transferred with pt. Pt did state she received meds as ordered yesterday and that they must have lost them upstairs. Will attempt to locate missing meds (especially Breo) but for now have ordered replacements from pharmacy.
--- NOTE | 2016-12-03 11:31 | PN- Pulmonary ---
Subjective HPI/Critical Care Issues: The patient is awake and alert. She has less cough and less dyspnea with exertion. She has a minimal amount of sputum. Her wheezing has improved overall. She continues to require supplemental oxygen. There were no further complaints reported. Objective Current Medications: Current Medications Sig/Jerel Start time Last Medication Dose Route Stop Time Status Admin Acetaminophen 650 MG Q6P PRN 12/01 2130 AC PO Acetaminophen 1,000 MG Q6P PRN 12/01 213 AC IV Albuterol Sulfate 3 ML TID 12/02 1600 AC 12/03 INH 1021 Apixaban 5 MG BID 12/01 220 AC 12/03 PO 0922 Aspirin Buffered 81 MG DAILY 12/01 2145 AC 12/03 PO 0922 Atorvastatin Calcium 20 MG 1700 12/02 1700 AC 12/02 PO 1824 Azithromycin 500 MG DAILY 12/02 1000 AC 12/03 Dextrose/Water 250 ML IV 0924 Ceftriaxone Sodium 1,000 MG DAILY 12/02 1000 AC 12/03 IV 0922 Diltiazem HCl 360 MG DAILY 12/02 1000 AC 12/03 PO 09 Fluticasone 2 SPRAY DAILY 12/02 1000 AC 12/02 Propionate ANGELA 0937 Furosemide 40 MG 7:30 AM, & 4:30 PM 12/03 0730 AC 12/03 PO 0922 Furosemide 40 MG BID 12/02 1000 DC 12/02 IV 12/02 2300 0943 Gabapentin 800 MG BID 12/01 220 AC 12/03 PO 0924 Guaifenesin 600 MG Q12 12/02 1045 AC 12/03 PO 0922 Lorazepam 0.5 MG AT BEDTIME NEED.. 12/01 2144 AC 12/02 PO 12/09 2143 214 Losartan Potassium 50 MG DAILY 12/02 1000 AC 12/03 PO 0922 Methylprednisolone 40 MG Q12 12/02 2200 AC 12/03 IV 0922 Methylprednisolone 40 MG Q8 12/02 0600 DC 12/02 IV 0608 Montelukast Sodium 10 MG AT BEDTIME 12/01 220 AC 12/02 PO 214 Omeprazole 20 MG DAILY 12/02 1000 AC 12/03 PO 0922 Patient Medication 1 ED .STK-MED ONE 12/02 1404 DC Teaching ED 12/02 1405 Patient Own 1 UNIT DAILY 12/02 1000 AC Medication PO Sertraline HCl 50 MG DAILY 12/02 1000 AC 12/03 PO 0922 Tiotropium [place] 1 PUF DAILY 12/02 1000 AC 12/02 INH 0939 Tramadol HCl 50 MG Q4P PRN 12/01 2130 AC PO Vital Signs & I&O Last 24 Hrs of Vitals and I&O: Vital Signs Date Time Temp Pulse Resp B/P Pulse O2 O2 Flow FiO2 Ox Delivery Rate 12/03 1024 96 Nasal 3.0L Cannula 12/03 0922 140/78 12/03 0757 97.4 110 18 148/90 95 12/03 0000 CPAP 12/02 2351 97.1 100 20 116/74 94 Nasal 3.0L Cannula 12/02 2130 Nasal 3.0L Cannula 12/02 1652 96 Nasal 3.0L Cannula 12/02 1600 Nasal 3.0L Cannula 12/02 1549 97.5 70 20 124/80 96 Nasal 4.0L Cannula 12/02 1118 Nasal 3.0L Cannula 12/02 1117 95 Nasal 3.0L Cannula Intake & Output 12/03 1600 12/03 0800 12/03 0000 Intake Total 60 251 Output Total 900 250 350 Balance -900 -190 -99 Intake, IV 07 05 Intake, Oral 50 240 Output, Urine 900 250 350 Exam General Appearance: no apparent distress, alert, awake, comfortable Head: atraumatic, normal appearance Neck: normal inspection Respiratory: chest non-tender, significantly improved air entry, minimal wheezing heard at the right base Cardiovascular: irregularly irregular Abdomen: normal bowel sounds, soft, non-tender Extremities: no edema Skin: intact, normal color, warm/dry Results Last 24 Hrs of Lab Results: Laboratory Tests 12/03/16 0635: Anion Gap 9, Estimated GFR > 60, BUN/Creatinine Ratio 28.9 H, Magnesium 2.0, CBC w Diff NO MAN DIFF REQ, RBC 4.46, MCV 83.4, MCH 26.6 L, RDW 16.9 H, MPV 8.1, Gran % 92.5 H, Lymphocytes % 5.1 L, Monocytes % 2.2, Eosinophils % 0.2, Basophils % 0 L, Absolute Granulocytes 9.2 H, Absolute Lymphocytes 0.5 L, Absolute Monocytes 0.2, Absolute Eosinophils 0, Absolute Basophils 0, PUBS MCHC 31.9 L 12/02/16 1430: Urine Color YEL, Urine Clarity CLEAR, Urine pH 6.0, Ur Specific [place] 1.025, Urine Protein NEG, Urine Ketones NEG, Urine Nitrite POS H, Urine Bilirubin NEG, Urine Urobilinogen 0.2, Ur Leukocyte Esterase NEG, Ur Microscopic SEDIMENT EXAMINED, Urine RBC RARE, Urine WBC RARE, Ur Epithelial Cells RARE, Urine Bacteria FEW H, Urine Hemoglobin NEG, Urine Glucose [address] Scan Findings: 1. Zwxabsao-[id number] pulmonary emphysema. 2. Although pneumonia has improved in the right upper lobe, there are persistent findings of infectious bronchiolitis in multiple lobes. Also, an area of increased consolidation is present in the right middle lobe and there is new patchy consolidation with surrounding groundglass attenuation from pneumonia in the anterolateral right lower lobe. No pleural effusion or lymphadenopathy. 3. Cardiomegaly and large pulmonary arteries, consistent with pulmonary arterial hypertension. 4. Stable ectasia of the ascending thoracic aorta (4.1 cm AP diameter at the level of the right pulmonary artery). 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 Impression/Plan Impression/Plan Impression/Plan: 1. Acute hypoxemic respiratory failure requiring supplemental oxygen. 2. COPD exacerbation. 3. Emphysema. 4. Recurrent pneumonia, currently with right basilar pneumonia versus atelectasis. 5. AF with episodes of tachycardia with activity. On Eliquis. 6. Possible superimposed CHF. Recommendations: * Send sputum culture. Induce if necessary (request from respiratory). * Follow up culture results. * Change to oral Cipro tomorrow if cultures are negative. * Check a quick flu. * Check a follow up lactic acid. * Continue IV solumedrol, 40 mg q 12 hours. * Guaifenesin BID. * Continue Nebs/TRC. * Continue Spiriva. * DVT prophylaxis - on Eliquis.
[2016-12-03 16:39] VITALS: BP 138/78
[2016-12-03 23:36] VITALS: BP 130/80
--- NOTE | 2016-12-04 08:47 | PN- Housestaff ---
Subjective Follow-up For: Tachycardia on exertion COPD exacerbation PNA Mild CHF exacerbation Tele-Events Since Last Visit: Rambo christine, heart rate 70 to 90s tachycardia to the 130s early in the morning patient was walking at the time Subjective: Seen and examined patient, a first no complaints. Denies chest pain, palpitations, shortness of breath. Review of Systems Constitutional: Denies: chills, diaphoresis, fever, malaise, weakness, unexplained weight loss. Cardiovascular: Denies: chest pain, edema, orthopena, palpitations, peripheral edema, syncope. Respiratory: Denies: cough, hemoptysis, orthopnea, short of breath, sputum production, stridor, wheezing. Objective Last 24 Hrs of Vital Signs/I&O Vital Signs Date Time Temp Pulse Resp B/P Pulse O2 O2 Flow FiO2 Ox Delivery Rate 12/04 1031 98.2 115 18 130/58 94 Nasal 2.0L Cannula 12/04 0959 97 Nasal 3.0L Cannula 12/04 0910 130/80 12/04 0000 CPAP 12/03 2336 97.5 65 20 130/80 96 Nasal 3.0L Cannula 12/03 1910 95 Nasal 3.0L Cannula 12/03 1800 94 Nasal 3.0L Cannula 12/03 1639 97.1 72 20 138/78 93 Nasal 3.0L Cannula Intake & Output 12/04 1600 12/04 0800 12/04 0000 Intake Total 60 251 Output Total 200 600 Balance -140 -349 Intake, IV 10 11 Intake, Oral 50 240 Output, Urine 200 600 Physical Exam General Appearance: Alert, Oriented X3, Cooperative, No Acute Distress Cardiovascular: Normal S1, Normal S2, irregular Lungs: Normal Air Movement Abdomen: Soft, No Tenderness Extremities: +1 edema Current Medications: Current Medications Sig/Jerel Start time Last Medication Dose Route Stop Time Status Admin Acetaminophen 650 MG Q6P PRN 12/01 2129 AC PO Acetaminophen 1,000 MG Q6P PRN 12/01 213 AC IV Albuterol Sulfate 3 ML TID 12/02 1600 AC 12/04 INH 0952 Apixaban 5 MG BID 12/01 2200 AC 12/04 PO 0910 Aspirin Buffered 81 MG DAILY 12/01 2145 AC 12/04 PO 0910 Atorvastatin Calcium 20 MG 1700 12/02 1700 AC 12/03 PO 1836 Azithromycin 500 MG DAILY 12/02 1000 AC 12/04 Dextrose/Water 250 ML IV 0909 Budesonide/ 2 PUF BID 12/03 1518 AC 12/04 Formoterol Fumarate INH 0910 Ceftriaxone Sodium 1,000 MG DAILY 12/02 1000 AC 12/04 IV 0909 Diltiazem HCl 360 MG DAILY 12/02 1000 AC 12/04 PO 0910 Fluticasone 2 SPRAY DAILY 12/02 1000 AC 12/03 Propionate ANGELA 1835 Furosemide 40 MG 7:30 AM, & 4:30 PM 12/03 0730 AC 12/04 PO 0910 Gabapentin 800 MG BID 12/01 2200 AC 12/04 PO 0910 Guaifenesin 600 MG Q12 12/02 1045 AC 12/04 PO 0910 Lorazepam 0.5 MG AT BEDTIME NEED.. 12/01 2145 AC 12/03 PO 12/08 2144 2251 Losartan Potassium 50 MG DAILY 12/02 1000 AC 12/04 PO 0910 Methylprednisolone 40 MG Q12 12/02 2200 AC 12/04 IV 0909 Montelukast Sodium 10 MG AT BEDTIME 12/01 2200 AC 12/03 PO 2253 Omeprazole 20 MG DAILY 12/02 1000 AC 12/04 PO 0910 Patient Own 1 UNIT DAILY 12/02 1000 AC Medication PO Polyethylene Glycol 17 GM DAILY 12/03 1138 AC 12/03 PO 1841 Sertraline HCl 50 MG DAILY 12/02 1000 AC 12/04 PO 0909 Tiotropium [place] 1 PUF DAILY 12/02 1000 AC 12/03 INH 1835 Tramadol HCl 50 MG Q4P PRN 12/01 2130 AC PO Last 24 Hrs of Lab/Kevin Results Last 24 Hrs of Labs/Mics: Laboratory Tests 12/04/16 0655: Anion Gap 11, Estimated GFR > 60, BUN/Creatinine Ratio 31.1 H 12/03/16 1210: Lactic Acid 1.9 Microbiology 12/03 1850 NASOPHARYN: Influenza Virus A & B Rapid Smear - COMP Assessment/Plan Assessment: Ms. Vega is a pleasant 70-year-old lady with a PMH significant for HTN, HLD , Afib on Elliquis, HFpEF, COPD not on home oxygen, MERCEDES on CPAP and mesothelioma who presents with worsening exertional dyspnea associated with cough productive of prulent yellow/greenish sputum and wheezing, concerning for pneumonia vs. acute bronchitis with a component of COPD exacebation. Acute hypoxic respiratory failure requring supplemental O2 * TRC neb tx PRN * Continue mucinex BID * Follow up on flu swab * Oxygen support to maintain O2 sat > 88% * Appreciated pulmonary recommendation * Treat COPD exacerbation & PNA as per plans discussed below * Continue oxygen with CPAP at night per Dr. Oliveira's recommendations * Consider induction of sputum sample if patient able to provide one with coughing COPD exacerbation Received one time dose Soulmedrol 80mg IV in the ED, followed by 40 mg IV every 8 IV Solu-Medrol. Rapid flu negative * on IV solumedrol 40 mg IV every 12 per pulmonary recommendations * Continue spiriva * TRC nebs as above, home inhalers Community acquired pneumonia * Patient currently afebrile without leukocytosis * Start CTX and Zithromax IV * F/u cultures (including LRC) * quick flu negative * Switch to oral cipro tomorrow if cultures negative (prelim cultures show no growth). * lactic acid trended down to normal Atrial fibrillation with controlled rate in setting of HFpEF * Continuous tele monitoring to continue * Patient carries a history of supraventricular tachycardia for which she is on Cardizem. * cardio recs to be followed daily * on PO Lasix 40mg BID * Continue Eliquis * Held beta venkatesh per cardio Hypertension and hyperlipidemia * Continue atorvastatin 10 mg daily * Continue losartan 50 mg daily * Aspirin 80 mg daily * Lasix as aforementioned Diet - heart healthy Mild pain pathway DVTppx - Eliquis Full code Problem List: 1. Hypoxia 2. Rapid atrial fibrillation 3. Pneumonia 4. MERCEDES (obstructive sleep apnea) Pain Ratin Pain Location: na Pain Goal: Pain 4 or less Pain Plan: current regimen Tomorrow's Labs & Rationales: none required
[2016-12-04 10:31] VITALS: BP 130/58
--- NOTE | 2016-12-04 11:39 | PN- Pulmonary ---
Subjective HPI/Critical Care Issues: The patient is awake and alert. Her oxygen requirement has improved, and she is now on 2 L nasal cannula. The patient reports feeling improved overall. She feels less short of breath. Her cough has significantly improved. She is no longer producing sputum. She has no fever, chills or chest pain. Overall she continues to feels she is better. Objective Current Medications: Current Medications Sig/Jerel Start time Last Medication Dose Route Stop Time Status Admin Acetaminophen 650 MG Q6P PRN 12/01 2130 AC PO Acetaminophen 1,000 MG Q6P PRN 12/01 2130 AC IV Albuterol Sulfate 3 ML TID 12/02 1600 AC 12/04 INH 0952 Apixaban 5 MG BID 12/01 2200 AC 12/04 PO 0910 Aspirin Buffered 81 MG DAILY 12/01 2145 AC 12/04 PO 0910 Atorvastatin Calcium 20 MG 1700 12/02 1700 AC 12/03 PO 1836 Azithromycin 500 MG DAILY 12/02 1000 AC 12/04 Dextrose/Water 250 ML IV 0909 Budesonide/ 2 PUF BID 12/03 1518 AC 12/04 Formoterol Fumarate INH 0910 Ceftriaxone Sodium 1,000 MG DAILY 12/02 1000 AC 12/04 IV 0909 Diltiazem HCl 360 MG DAILY 12/02 1000 AC 12/04 PO 0910 Fluticasone 2 SPRAY DAILY 12/02 1000 AC 12/03 Propionate ANGELA 1835 Furosemide 40 MG 7:30 AM, & 4:30 PM 12/03 0730 AC 12/04 PO 0910 Gabapentin 800 MG BID 12/01 2200 AC 12/04 PO 0910 Guaifenesin 600 MG Q12 12/02 1045 AC 12/04 PO 0910 Lorazepam 0.5 MG AT BEDTIME NEED.. 12/01 2145 AC 12/03 PO 12/08 2144 2251 Losartan Potassium 50 MG DAILY 12/02 1000 AC 12/04 PO 0910 Methylprednisolone 40 MG Q12 12/02 2200 AC 12/04 IV 0909 Montelukast Sodium 10 MG AT BEDTIME 12/01 2200 AC 12/03 PO 2253 Omeprazole 20 MG DAILY 12/02 1000 AC 12/04 PO 0910 Patient Own 1 UNIT DAILY 12/02 1000 AC Medication PO Polyethylene Glycol 17 GM DAILY 12/03 1138 AC 12/03 PO 1841 Sertraline HCl 50 MG DAILY 12/02 1000 AC 12/04 PO 0909 Tiotropium [place] 1 PUF DAILY 12/02 1000 AC 12/03 INH 1835 Tramadol HCl 50 MG Q4P PRN 12/01 2130 AC PO Vital Signs & I&O Last 24 Hrs of Vitals and I&O: Vital Signs Date Time Temp Pulse Resp B/P Pulse O2 O2 Flow FiO2 Ox Delivery Rate 12/04 1031 98.2 115 18 130/58 94 Nasal 2.0L Cannula 12/04 0959 97 Nasal 3.0L Cannula 12/04 0910 130/80 12/04 0800 97 Nasal 3.0L Cannula 12/04 0000 CPAP 12/03 2336 97.5 65 20 130/80 96 Nasal 3.0L Cannula 12/03 1910 95 Nasal 3.0L Cannula 12/03 1800 94 Nasal 3.0L Cannula 12/03 1639 97.1 72 20 138/78 93 Nasal 3.0L Cannula Intake & Output 12/04 1600 12/04 0800 12/04 0000 Intake Total 60 251 Output Total 200 600 Balance -140 -349 Intake, IV 10 11 Intake, Oral 50 240 Output, Urine 200 600 Exam General Appearance: no apparent distress, alert, awake, comfortable Head: atraumatic, normal appearance Neck: normal inspection Respiratory: chest non-tender, significantly improved air entry, minimal wheezing heard at the right base Cardiovascular: irregularly irregular Abdomen: normal bowel sounds, soft, non-tender Extremities: no edema Skin: intact, normal color, warm/dry Results Last 24 Hrs of Lab Results: Laboratory Tests 12/04/16 0655: Anion Gap 11, Estimated GFR > 60, BUN/Creatinine Ratio 31.1 H 12/03/16 1210: Lactic Acid 1.9 Impression/Plan Impression/Plan Impression/Plan: 1. Acute hypoxemic respiratory failure requiring supplemental oxygen. 2. COPD exacerbation. 3. Emphysema. 4. Recurrent pneumonia, currently with right basilar pneumonia versus atelectasis. 5. AF with episodes of tachycardia with activity. On Eliquis. 6. Possible superimposed CHF. Recommendations: * Please send sputum culture. . * Follow up culture results. * Change to oral Cipro today. * Check a ESR, TITA and ANCA with next blood work. * Continue IV solumedrol, 40 mg q 12 hours. * Will change to prednisone tomorrow if she continues to improve. * Guaifenesin BID. * Continue Nebs/TRC. * Continue Spiriva and Symbicort (patient usually on Breo at home). * DVT prophylaxis - on Eliquis. * Anticipate discharge for tomorrow if she continues to improve.
--- NOTE | 2016-12-04 14:40 | PN- Att Addend ---
Attending MD Review Statement Attending Statement Attending MD Statement: examined this patient, discuss w/resident/PA/CREAM BEATER, agreed w/resident/PA/CREAM BEATER, reviewed EMR data (avail), discussed w/nursing Attending Assessment/Plan: Laboratory Tests 12/04/16 0655: Anion Gap 11, Estimated GFR > 60, BUN/Creatinine Ratio 31.1 H Microbiology 12/03 1850 NASOPHARYN: Influenza Virus A & B Rapid Smear - COMP Vital Signs Date Time Temp Pulse Resp B/P Pulse O2 O2 Flow FiO2 Ox Delivery Rate 12/04 1031 98.2 115 18 130/58 94 Nasal 2.0L Cannula 12/04 0959 97 Nasal 3.0L Cannula 12/04 0910 130/80 12/04 0800 97 Nasal 3.0L Cannula 12/04 0000 CPAP 12/03 2336 97.5 65 20 130/80 96 Nasal 3.0L Cannula 12/03 1910 95 Nasal 3.0L Cannula 12/03 1800 94 Nasal 3.0L Cannula 12/03 1639 97.1 72 20 138/78 93 Nasal 3.0L Cannula Patient seen and examined at bedside. Patient admitted for acute hypoxic respiratory failure secondary to pneumonia and COPD exacerbation. Continue on the current dose of Solu-Medrol 40 IV every 12 for now. Continue on Symbicort and Spiriva. I spoke with the nurse in charge again today regarding patient losing her Brio inhaler while in the hospital. She told me that pharmacy has already arranged for a new inhaler for her to go home with. Patient will be possibly switch to by mouth steroids if stable tomorrow and possible discharge tomorrow.
--- NOTE | 2016-12-04 19:13 | PN- Cardiology ---
Subjective Subjective: Patient feels she is improving. No chest pain or palpitations. Remains on nasal cannula. Objective Vital Signs and I&Os Vital Signs Date Time Temp Pulse Resp B/P Pulse O2 O2 Flow FiO2 Ox Delivery Rate 12/04 1549 97.8 73 18 95 Nasal 2.0L Cannula 12/04 1031 98.2 115 18 130/58 94 Nasal 2.0L Cannula 12/04 0959 97 Nasal 3.0L Cannula 12/04 0910 130/80 12/04 0800 97 Nasal 3.0L Cannula 12/04 0000 CPAP 12/03 2336 97.5 65 20 130/80 96 Nasal 3.0L Cannula 12/03 1910 95 Nasal 3.0L Cannula Intake & Output 12/04 1600 12/04 0800 12/04 0000 12/03 1600 12/03 0800 12/03 0000 Intake Total 600 60 251 60 251 Output Total 1500 200 600 900 250 350 Balance -900 -140 -349 -900 -190 -99 Intake, IV 10 10 11 Intake, Oral 600 50 240 50 240 Output, Urine 1500 200 600 900 250 350 Physical Exam: General: no apparent distress. Alert. On nasal cannula Eyes: No obvious scleral icterus. HEENT: No jugular venous distention or abnormal jugular venous pulsations. Cardiovascular: Normal intensity S1/S2. Irregular Respiratory: Trace wheezing bilaterally Abdomen: no guarding or rebound tenderness. Musculoskeletal: No clubbing or cyanosis noted, trace lower extremity edema Skin: Warm Current Medications: Current Medications Sig/Jerel Start time Last Medication Dose Route Stop Time Status Admin Acetaminophen 650 MG Q6P PRN 12/01 2130 AC PO Acetaminophen 1,000 MG Q6P PRN 12/01 2130 AC IV Albuterol Sulfate 3 ML TID 12/02 1600 AC 12/04 INH 1904 Apixaban 5 MG BID 12/01 2200 AC 12/04 PO 0910 Aspirin Buffered 81 MG DAILY 12/01 2145 AC 12/04 PO 0910 Atorvastatin Calcium 20 MG 1700 12/02 1700 AC 12/04 PO 1857 Azithromycin 500 MG DAILY 12/02 1000 AC 12/04 Dextrose/Water 250 ML IV 0909 Budesonide/ 2 PUF BID 12/03 1518 AC 12/04 Formoterol Fumarate INH 0910 Ceftriaxone Sodium 1,000 MG DAILY 12/02 1000 DC 12/04 IV 0909 Ciprofloxacin 500 MG BID 12/05 1000 AC PO 12/09 0959 Diltiazem HCl 360 MG DAILY 12/02 1000 AC 12/04 PO 0910 Fluticasone 2 SPRAY DAILY 12/02 1000 AC 12/04 Propionate ANGELA 1407 Furosemide 40 MG 7:30 AM, & 4:30 PM 12/03 0730 AC 12/04 PO 1856 Gabapentin 800 MG BID 12/01 2200 AC 12/04 PO 0910 Guaifenesin 600 MG Q12 12/02 1045 AC 12/04 PO 0910 Lorazepam 0.5 MG AT BEDTIME NEED.. 12/01 2145 AC 12/03 PO 12/08 214 2251 Losartan Potassium 50 MG DAILY 12/02 1000 AC 12/04 PO 0910 Methylprednisolone 40 MG Q12 12/02 2200 AC 12/04 IV 0909 Montelukast Sodium 10 MG AT BEDTIME 12/01 2200 AC 12/03 PO 2253 Omeprazole 20 MG DAILY 12/02 1000 AC 12/04 PO 0910 Patient Own 1 UNIT DAILY 12/02 1000 AC Medication PO Polyethylene Glycol 17 GM DAILY 12/03 1138 AC 12/04 PO 1857 Sertraline HCl 50 MG DAILY 12/02 1000 AC 12/04 PO 0909 Tiotropium [place] 1 PUF DAILY 12/02 1000 AC 12/04 INH 1407 Tramadol HCl 50 MG Q4P PRN 12/01 2130 AC PO Results Last 48 Hrs of Labs/Mics: Laboratory Tests 12/04/16 0655: Anion Gap 11, Estimated GFR > 60, BUN/Creatinine Ratio 31.1 H 12/03/16 1210: Lactic Acid 1.9 12/03/16 0635: Anion Gap 9, Estimated GFR > 60, BUN/Creatinine Ratio 28.9 H, Magnesium 2.0, CBC w Diff NO MAN DIFF REQ, RBC 4.46, MCV 83.4, MCH 26.6 L, RDW 16.9 H, MPV 8.1, Gran % 92.5 H, Lymphocytes % 5.1 L, Monocytes % 2.2, Eosinophils % 0.2, Basophils % 0 L, Absolute Granulocytes 9.2 H, Absolute Lymphocytes 0.5 L, Absolute Monocytes 0.2, Absolute Eosinophils 0, Absolute Basophils 0, PUBS MCHC 31.9 L Microbiology 12/03 1849 NASOPHARYN: Influenza Virus A & B Rapid Smear - COMP 12/02 2029 URINE ROUT: Legionella Antigen - COMP 12/02 2029 URINE ROUT: Streptococcus pneumoniae Antigen (M - COMP Recent Imaging Studies: Telemetry tracings were personally reviewed and show atrial fibrillation with an average heart rate of around 80 bpm Assessment/Plan Assessment/Plan 1. COPD exacerbation 2. Atrial fibrillation on anticoagulation 3. 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 Heart failure with preserved ejection fraction 6. Pneumonia Patient continues to improve. Overall heart rate control appears adequate and would continue on the Cardizem. Continue on the oral Lasix. Being considered for possible discharge tomorrow if she continues to improve. Continue twice a day Eliquis. Pro Richard MD [facility] Continue telemetry? No
[2016-12-04] MEDS ORDERED: PREDNISONE10 M2 PO (21:06)
--- NOTE | 2016-12-04 21:08 | Patient Discharge Instructions ---
Discharge Instructions General Discharge Information You were seen/treated for: COPD exacerbation Pneumonia Special Instructions: -Please follow up with PCP and laborer plumbing in 1 week. -Follow up with cloth picker. Diet Continue normal diet: Yes Activity Full Activity/No Limits: Yes Acute Coronary Syndrome Inclusion Criteria At DC or during hospital stay patient has or had the following: ACS DIAGNOSIS No Discharge Core Measures Meds if any: Prescribed or Continued at Discharge Meds if any: NOT Prescribed or Continued at Discharge Congestive Heart Failure Inclusion Criteria At DC or during hospital stay patient has or had the following: CHF DIAGNOSIS No Discharge Core Measures Meds if any: Prescribed or Continued at Discharge Meds if any: NOT Prescribed or Continued at Discharge Cerebrovascular accident Inclusion Criteria At DC or during hospital stay patient has or had the following: CVA/TIA Diagnosis No Discharge Core Measures Meds if any: Prescribed or Continued at Discharge Meds if any: NOT Prescribed or Continued at Discharge Venous thromboembolism Inclusion Criteria VTE Diagnosis No VTE Type NONE VTE Confirmed by (Test) NONE Discharge Core Measures - Per Current guidelines, there needs to be overlap - treatment for the first 5 days of Warfarin therapy. - If discharged on Warfarin prior to 5 days of - overlap therapy, the patient will need to be - assessed for post discharge needs including - *Post discharge parental anticoagulation - *Warfarin and/or parental anticoagulation education - *Follow up date to check INR post discharge At least 5 days overlap therapy as Inpatient No Meds if any: Prescribed or Continued at Discharge Note: Overlap Therapy is Warfarin and Anticoagulant Meds if any: NOT Prescribed or Continued at Discharge
[2016-12-04 22:54] VITALS: BP 122/78
--- NOTE | 2016-12-05 06:47 | PN- Housestaff ---
CAROL SAINZ,[facility] 12/05/16 0646: Subjective Follow-up For: copd exacerbation pneumonia Tele-Events Since Last Visit: a fib 80-90s now off tele Subjective: Pt seen this morning, she was feeling better, however still has dyspnea on exertion and reportedly desat on ambulation yesterday, will santo repeat o2 sat today and see if she needs home oxygen. pharmacy has been contacted to replace her lost breo. she wants her scripts to be sent to [place] [facility] because she doesnt wanna wait around at [facility], nurse has faxed down her script, she will get it on her way out. she was still 2L oxygen, although she is nervous about going home, she feels better knowing that she is going home on prednisone and antibiotics. Review of Systems Constitutional: Reports: see HPI. Objective Last 24 Hrs of Vital Signs/I&O Vital Signs Date Time Temp Pulse Resp B/P Pulse O2 O2 Flow FiO2 Ox Delivery Rate 12/05 0951 142/74 12/05 0817 98.6 92 20 142/74 95 CPAP 12/05 0000 94 CPAP 2.0L 12/04 2254 97.5 77 18 122/78 95 Nasal 2.0L Cannula 12/04 1905 96 Nasal 3.0L Cannula 12/04 1600 95 Nasal 3.0L Cannula 12/04 1549 97.8 73 18 95 Nasal 2.0L Cannula 12/04 1031 98.2 115 18 130/58 94 Nasal 2.0L Cannula Intake & Output 12/05 1600 12/05 0800 12/05 0000 Intake Total 240 400 Output Total 275 Balance -35 400 Intake, Oral 240 400 Output, Urine 275 Physical Exam General Appearance: Alert, Oriented X3, Cooperative, No Acute Distress Skin: No Significant Lesion HEENT: Atraumatic Cardiovascular: irregular rate, normal rate Lungs: some rhonchi heard on right base Abdomen: Normal Bowel Sounds, Soft, No Tenderness Neurological: Normal Speech Current Medications: Current Medications Sig/Jerel Start time Last Medication Dose Route Stop Time Status Admin Acetaminophen 650 MG Q6P PRN 12/01 2129 AC PO Acetaminophen 1,000 MG Q6P PRN 12/01 2129 AC IV Albuterol Sulfate 3 ML TID 12/02 1600 AC 12/04 INH 2210 Apixaban 5 MG BID 12/01 220 AC 12/05 PO 0951 Aspirin Buffered 81 MG DAILY 12/01 2145 AC 12/05 PO 0951 Atorvastatin Calcium 20 MG 1700 12/02 1700 AC 12/04 PO 1857 Azithromycin 500 MG DAILY 12/02 1000 DC 12/04 Dextrose/Water 250 ML IV 0909 Budesonide/ 2 PUF BID 12/03 1518 AC 12/05 Formoterol Fumarate INH 0951 Ceftriaxone Sodium 1,000 MG DAILY 12/02 1000 DC 12/04 IV 0909 Ciprofloxacin 500 MG BID 12/05 1000 AC 12/05 PO 12/09 0959 0951 Diltiazem HCl 360 MG DAILY 12/02 1000 AC 12/05 PO 0950 Fluticasone 2 SPRAY DAILY 12/02 1000 AC 12/05 Propionate ANGELA 0951 Furosemide 40 MG 7:30 AM, & 4:30 PM 12/03 0730 AC 12/05 PO 0951 Gabapentin 800 MG BID 12/01 2200 AC 12/05 PO 0951 Guaifenesin 600 MG Q12 12/02 1045 AC 12/05 PO 0951 Lorazepam 0.5 MG AT BEDTIME NEED.. 12/01 2145 AC 12/03 PO 12/08 2144 2251 Losartan Potassium 50 MG DAILY 12/02 1000 AC 12/05 PO 0951 Methylprednisolone 40 MG Q12 12/02 2200 DC 12/04 IV 2228 Montelukast Sodium 10 MG AT BEDTIME 12/01 2200 AC 12/04 PO 2228 Omeprazole 20 MG DAILY 12/02 1000 AC 12/05 PO 0951 Patient Own 1 UNIT DAILY 12/02 1000 AC Medication PO Polyethylene Glycol 17 GM DAILY 12/03 1138 AC 12/04 PO 1857 Prednisone 60 MG DAILY 12/05 1000 AC 12/05 PO 0950 Sertraline HCl 50 MG DAILY 12/02 1000 AC 12/05 PO 0950 Tiotropium [place] 1 PUF DAILY 12/02 1000 AC 12/05 INH 0950 Tramadol HCl 50 MG Q4P PRN 12/01 2130 AC PO Last 24 Hrs of Lab/Kevin Results Last 24 Hrs of Labs/Mics: Laboratory Tests 12/05/16 0632: ESR Westergren Pending, ANCA Pending, A.phagocytophil DNA PCR Pending Assessment/Plan Assessment: Ms. Vega is a pleasant 70-year-old lady with a PMH significant for HTN, HLD , Afib on Elliquis, HFpEF, COPD not on home oxygen, MERCEDES on CPAP and mesothelioma who presents with worsening exertional dyspnea associated with cough productive of prulent yellow/greenish sputum and wheezing, concerning for pneumonia vs. acute bronchitis with a component of COPD exacebation. Acute hypoxic respiratory failure requring supplemental O2 * TRC neb tx PRN * Continue mucinex BID * Follow up on flu swab * Oxygen support to maintain O2 sat > 88% * Appreciated pulmonary recommendation * Treat COPD exacerbation & PNA as per plans discussed below * Continue oxygen with CPAP at night per Dr. Oliveira's recommendations * Consider induction of sputum sample if patient able to provide one with coughing COPD exacerbation Received one time dose Soulmedrol 80mg IV in the ED, followed by 40 mg IV every 8 IV Solu-Medrol. Rapid flu negative * Prednisonee 60, discharge on slow taper * Continue spiriva * TRC nebs as above, home inhalers Community acquired pneumonia * Patient currently afebrile without leukocytosis * received ceftriaxone and azithro inpatient. changed to cipro at discharge to complete 10 days of abx * F/u cultures (including LRC) * quick flu negative * lactic acid trended down to normal Atrial fibrillation with controlled rate in setting of HFpEF * Continuous tele monitoring to continue * Patient carries a history of supraventricular tachycardia for which she is on Cardizem. * cardio recs to be followed daily * on PO Lasix 40mg BID * Continue Eliquis Hypertension and hyperlipidemia * Continue atorvastatin 10 mg daily * Continue losartan 50 mg daily * Aspirin 80 mg daily * Lasix as aforementioned Diet - heart healthy Mild pain pathway DVTppx - Eliquis Full code Problem List: 1. Pneumonia 2. COPD exacerbation Pain Ratin Pain Location: none Pain Goal: Remain pain free Pain Plan: none Tomorrow's Labs & Rationales: none DVT/Prophylaxis: mechanical, pharmacological NHAN STORM MD 12/05/16 1204: Attending MD Review Statement Attending Statement Attending MD Statement: examined this patient, discuss w/resident/PA/RECYCLING OPERATIONS MANAGER, agreed w/resident/PA/RECYCLING OPERATIONS MANAGER, reviewed EMR data (avail) Attending Assessment/Plan: Patient feels better today. Still requiring oxygen with ambulation, 93% at rest , desaturates to 82% with ambulation. Will discharge on Prednisone taper with outpatient follow up.
[2016-12-05 08:17] VITALS: BP 142/74
--- NOTE | 2016-12-05 08:50 | PN- Pulmonary ---
Subjective HPI/Critical Care Issues: The patient is awake and alert. She is feeling markedly improved overall. She has less cough and less wheezing. She continues to have dyspnea on exertion but once again this has improved. The patient desaturates into the high 80s with ambulation while on oxygen. She has a pulse oximeter at home and she will continue to monitor her saturations. Objective Current Medications: Current Medications Sig/Jerel Start time Last Medication Dose Route Stop Time Status Admin Acetaminophen 650 MG Q6P PRN 12/01 2130 AC PO Acetaminophen 1,000 MG Q6P PRN 12/01 2130 AC IV Albuterol Sulfate 3 ML TID 12/02 1600 AC 12/04 INH 2210 Apixaban 5 MG BID 12/01 2200 AC 12/04 PO 2228 Aspirin Buffered 81 MG DAILY 12/01 2145 AC 12/04 PO 0910 Atorvastatin Calcium 20 MG 1700 12/02 1700 AC 12/04 PO 1857 Azithromycin 500 MG DAILY 12/02 1000 AC 12/04 Dextrose/Water 250 ML IV 0909 Budesonide/ 2 PUF BID 12/03 1518 AC 12/04 Formoterol Fumarate INH 2228 Ceftriaxone Sodium 1,000 MG DAILY 12/02 1000 DC 12/04 IV 0909 Ciprofloxacin 500 MG BID 12/05 1000 AC PO 12/09 0959 Diltiazem HCl 360 MG DAILY 12/02 1000 AC 12/04 PO 0910 Fluticasone 2 SPRAY DAILY 12/02 1000 AC 12/04 Propionate ANGELA 1407 Furosemide 40 MG 7:30 AM, & 4:30 PM 12/03 0730 AC 12/04 PO 1856 Gabapentin 800 MG BID 12/01 2200 AC 12/04 PO 2228 Guaifenesin 600 MG Q12 12/02 1045 AC 12/04 PO 2228 Lorazepam 0.5 MG AT BEDTIME NEED.. 12/01 2145 AC 12/03 PO 12/08 2144 2251 Losartan Potassium 50 MG DAILY 12/02 1000 AC 12/04 PO 0910 Methylprednisolone 40 MG Q12 12/02 2200 AC 12/04 IV 2228 Montelukast Sodium 10 MG AT BEDTIME 12/01 2200 AC 12/04 PO 2228 Omeprazole 20 MG DAILY 12/02 1000 AC 12/04 PO 0910 Patient Own 1 UNIT DAILY 12/02 1000 AC Medication PO Polyethylene Glycol 17 GM DAILY 12/03 1138 AC 12/04 PO 1857 Sertraline HCl 50 MG DAILY 12/02 1000 AC 12/04 PO 0909 Tiotropium [place] 1 PUF DAILY 12/02 1000 AC 12/04 INH 1407 Tramadol HCl 50 MG Q4P PRN 12/01 2130 AC PO Vital Signs & I&O Last 24 Hrs of Vitals and I&O: Vital Signs Date Time Temp Pulse Resp B/P Pulse O2 O2 Flow FiO2 Ox Delivery Rate 12/05 0817 98.6 92 20 142/74 95 CPAP 12/05 0000 94 CPAP 2.0L 12/04 2254 97.5 77 18 122/78 95 Nasal 2.0L Cannula 12/04 1905 96 Nasal 3.0L Cannula 12/04 1600 95 Nasal 3.0L Cannula 12/04 1549 97.8 73 18 95 Nasal 2.0L Cannula 12/04 1031 98.2 115 18 130/58 94 Nasal 2.0L Cannula 12/04 0959 97 Nasal 3.0L Cannula 12/04 0910 130/80 Intake & Output 12/05 1600 12/05 0800 12/05 0000 Intake Total 240 400 Output Total 275 Balance -35 400 Intake, Oral 240 400 Output, Urine 275 Exam General Appearance: no apparent distress, alert, awake, comfortable Head: atraumatic, normal appearance Neck: normal inspection Respiratory: chest non-tender, significantly improved air entry, minimal wheezing heard at the right base Cardiovascular: irregularly irregular Abdomen: normal bowel sounds, soft, non-tender Extremities: no edema Skin: intact, normal color, warm/dry Results Last 24 Hrs of Lab Results: Laboratory Tests 12/05/16 0632: ESR Westergren Pending, ANCA Pending, A.phagocytophil DNA PCR Pending Impression/Plan Impression/Plan Impression/Plan: 1. Acute hypoxemic respiratory failure requiring supplemental oxygen. 2. COPD exacerbation. 3. Emphysema. 4. Recurrent pneumonia, currently with right basilar pneumonia versus atelectasis. 5. AF with episodes of tachycardia with activity. On Eliquis. 6. Possible superimposed CHF. Recommendations: * Complete 7-10 days of antibiotics in total. * Follow up ESR, TITA and ANCA with next blood work. * Change to prednisone 60 mg daily. Decrease by 10 mg every 3 days, down to off. * Guaifenesin BID. * Continue Nebs/TRC. * Discharge on Spiriva and Breo. * DVT prophylaxis - on Eliquis.
[2016-12-05] MEDS ORDERED: CIPRO500 M1 PO (09:10)
--- NOTE | 2016-12-05 09:31 | Discharge Summary ---
Visit Information Visit Dates Admission Date: 12/01/16 Discharge Date: 12/05/16 Hospital Course Course Attending Physician: Dr. Storm Primary Care Physician: LIANNA SAINZ,[facility] Course: Ms. Vega is a pleasant 70-year-old lady with a PMH significant for HTN, HLD , Afib on Elliquis, HFpEF, COPD not on home oxygen, MERCEDES on CPAP and mesothelioma who presents with worsening exertional dyspnea associated with cough productive of prulent yellow/greenish sputum and wheezing. Pt was initially admitted to general medicine for acute hypoxic respiratory failure requiring supplemental O2 sat secondary to COPD exacerbation (given solumedrol inpatient, subsequently discharged on slow taper prednisone 60 mg, decrease 10mg every 3 days), and pneumonia (treated with IV ceftriaxone and azithromycin inpatient, changed to ciprofloxacin at discharge to complete a total of 10 days of antibiotics), although sputum culture could not be obtained. Dr. Oliveira was on board. She was transferred to telemetry on day # 1 of admission due to palpitations at rest and exertion with heart rate of 130s. No events on telemetry, and her HR was maintained in the 80-90s range without any change in medications. Dr. Ha was on board. Allergies: Coded Allergies: adhesive (IRRITATING TO SKIN 10/13/16) cephalexin (ITCHY 10/13/16) clarithromycin (From BIAXIN) (SEVERE GI UPSET, DIARRHEA 10/13/16) hydrochlorothiazide (ITCHY 10/13/16) metronidazole (HIVES AND SEVERE ITCHING 10/13/16) nitrofurantoin (HIVES 10/13/16) sulfamethoxazole (From BACTRIM) (HIVES 10/13/16) trimethoprim (From BACTRIM) (HIVES 10/13/16) Significant Procedures: Chest CT IMPRESSION: 1. [id number] pulmonary emphysema. 2. Although pneumonia has improved in the right upper lobe, there are persistent findings of infectious bronchiolitis in multiple lobes. Also, an area of increased consolidation is present in the right middle lobe and there is new patchy consolidation with surrounding groundglass attenuation from pneumonia in the anterolateral right lower lobe. No pleural effusion or lymphadenopathy. 3. Cardiomegaly and large pulmonary arteries, consistent with pulmonary arterial hypertension. 4. Stable ectasia of the ascending thoracic aorta (4.1 cm AP diameter at the level of the right pulmonary artery). 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 -Follow up with child care attendant school. Medications at Discharge Discharge Medications: Stop taking the following medications: Prednisone (Prednisone) 10 MG TABLET ORAL DAILY Qty = 8 Prednisone (Prednisone) 10 MG TABLET ORAL DAILY Qty = 9 Prednisone (Prednisone) 10 MG TABLET ORAL DAILY Qty = 6 Prednisone (Prednisone) 10 MG TABLET ORAL DAILY Qty = 3 Prednisone (Prednisone) 5 MG TABLET ORAL DAILY Qty = 3 Continue taking these medications: Lorazepam (Ativan) 0.5 MG TABLET 1 Tablet ORAL AT BED TIME as needed for ANXIETY Comments: Last Taken: 10/17/16 Time: 11:37 PM Tiotropium [place] (Spiriva) 18 MCG CAP.W.DEV 1 Capsule Inhale through mouth DAILY Comments: PER PT Fluticasone/Vilanterol (Breo Ellipta 100-25 Mcg INH) (Unknown Strength) BLST.W.DEV Unknown Dose Inhale through mouth DAILY Comments: PER PT Furosemide (Furosemide) 40 MG TABLET 1 Tablet ORAL DAILY Comments: PER PT Aspirin (Ecotrin*) 81 MG TABLET.DR 1 Tablet ORAL DAILY Comments: PER PT Sertraline HCl (Sertraline HCl) 50 MG TABLET 1 Tablet ORAL DAILY Comments: PER PT Clonidine (Clonidine) 0.2 MG/24 HOUR PATCH.TDWK 1 Patch On the skin EVERY MONDAY Comments: PER PT Albuterol Sulfate (Ventolin Hfa) 90 MCG HFA.AER.AD 2 Puff Inhale through mouth Q6H as needed for RESPIRATORY Comments: Last Taken: 10/18/16 Time: 12:59 PM Gabapentin (Neurontin) 400 MG CAPSULE 2 Capsule ORAL TWICE DAILY Comments: Last Taken: 800 MG 10/18/16 Time: 10:34 AM Losartan Potassium (Cozaar) 50 MG TABLET 1 Tablet ORAL DAILY Comments: PER PT VERBALLY CONFIRMED 50MG PO DAILY Last Taken: 10/17/16 Time: 10:37 PM Montelukast Sodium (Singulair) 10 MG TABLET 1 Tablet ORAL DAILY Days = 30 Comments: Last Taken: 10/17/16 Time: 0937 PM Apixaban (Eliquis) 5 MG TABLET 1 Tablet ORAL TWICE DAILY Qty = 60 Comments: Last Taken: 10/18/16 TIME: 10:34 AM Atorvastatin Calcium (Lipitor) 20 MG TABLET 1 Tablet ORAL DAILY Qty = 30 Comments: Last Taken: 10/17/16 Time: 5:00 PM Diltiazem HCl (Cardizem Cd) 360 MG CAP.ER.24H 1 Capsule ORAL DAILY Qty = 30 Comments: Last Taken: 10/18/16 Time: 10:34 AM Albuterol Sulfate (Albuterol Sulfate) 2.5 MG/3 ML (0.083 %) VIAL.NEB 1 Vial Inhale Solution THREE TIMES DAILY Qty = 75 Comments: PER PT Fluticasone Propionate (Fluticasone Propionate) 50 MCG/ACTUATION SPRAY.SUSP 2 Loman Both sides of nose DAILY Qty = 16 Comments: PER PT Omeprazole (Omeprazole) 20 MG CAPSULE.DR 1 Capsule ORAL DAILY Qty = 90 Comments: PER PT Start taking the following new medications: Ciprofloxacin HCl (Cipro) 500 MG TABLET 500 Milligram ORAL TWICE DAILY Qty = 14 No Refills Instructions: Please take until 12/11/16 to finish 10 days of antibiotics Prednisone (Prednisone) 10 MG TABLET 1 Tablet ORAL See Instructions Qty = 63 No Refills Instructions: Please take 60 mg (6 tabs) for 3 days then 50 mg (5 tabs) for 3 days then 40 mg (4 tabs) for 3 days Then 30 mg (3 tabs) for 3 days then 20 mg (2 tabs) for 3 days then 10 mg (1 tab) for 3 days Then stop Copies To: CARTER SAINZ,Sharri HEALY; LIANNA SAINZ,NELL; LINA SAINZ PhD,BRIAN Hernández Attending MD Review Statement Documenting Attending: NHAN STORM MD
[2016-12-05 09:51] VITALS: BP 142/74
--- NOTE | 2016-12-05 11:37 | NUR ---
pt resting on RA. O2 sat on RA 93-94%. Ambulating on RA 88%. Hr up to 140s. Resting HR 90-110s.
== END 2016-12-05 15:50 | disposition home health service (06) | DRG 189 ==
LOC: ENRESERVDT → ENRESERVTM → ERH 15:24 → ERHI 19:44 → 1NO 19:44 → 2NB 19:44 → 1NO 12-02 15:30
PROVIDERS: Physician Assistant Surgical; Radiology Diagnostic Radiology; Student in an Organized Health Care Education/Training Program; ADMIT Student in an Organized Health Care Education/Training Program
DX: J96.01 Acute respiratory failure with hypoxia (principal); I50.33 Acute on chronic diastolic (congestive) heart failure; J18.9 Pneumonia, unspecified organism; I11.0 Hypertensive heart disease with heart failure; I48.2 Chronic atrial fibrillation; J44.0 Chronic obstructive pulmonary disease with (acute) lower respiratory infection; Z68.41 Body mass index [BMI] 40.0-44.9, adult; E66.01 Morbid (severe) obesity due to excess calories; J44.1 Chronic obstructive pulmonary disease with (acute) exacerbation; G47.33 Obstructive sleep apnea (adult) (pediatric); F32.9 Major depressive disorder, single episode, unspecified; E78.5 Hyperlipidemia, unspecified; Z79.01 Long term (current) use of anticoagulants; R00.0 Tachycardia, unspecified; I70.0 Atherosclerosis of aorta; G89.29 Other chronic pain; M54.9 Dorsalgia, unspecified
CPT/HCPCS: 1NSP; 2NBSP; 86021; 87798; 36415; 81001; 82436; 87040; 87070; 87449; 87450; 87804; 87804-59; 93005; 93010; J0131; J0456; J0696; J1940; J2920; J2930; J3490; J7060